=== PATIENT | male | born 1945 | race Caucasian/White ===

== ENCOUNTER 2018-07-07 16:44 | Outpatient (REF) | payer MEDICARE, MEDICAID, SELFPAY ==
[2018-07-07 18:50] LABS: HCT 43.3 % (40.0-50.0); HGB 13.7 g/dL (13.5-17.5); Mean Corp. HGB Concentration 31.6 g/dL (32.0-36.0); Mean Corpuscular Hemoglobin 26.1 pg (27.0-33.0); Mean Corpuscular Volume 82.6 fL (80-95); Mean Platelet Volume 10.1 fL (8.0-11.0); Platelet Count 262 x1000/uL (130-400); RBC 5.24 m/cumm (4.50-6.00); RBC Distribution Width 15.3 % (11.8-14.1); White Blood Cell Count 5.75 k/cumm (4.4-10.8)
[2018-07-07 19:09] LABS: TSH 2.77 uIU/mL (0.358-3.74)
[2018-07-11 11:10] LABS: PSA, Diagnostic 8.1 ng/ml (0-6.5)
== END 2018-07-07 16:45 ==
LOC: NCHCN 16:44
PROVIDERS: PCP Internal Medicine; Visit Provider Internal Medicine
DX: D64.9 Anemia, unspecified (principal); C61 Malignant neoplasm of prostate
CPT/HCPCS: 85027; 84153; 84443

== ENCOUNTER 2018-09-01 13:51 | Outpatient (REF) | payer MEDICARE, MEDICAID, SELFPAY ==
[2018-09-08 12:56] LABS: 6-monoacetylmorphine Not Detected ng/mL (Cutoff: 25); Amphetamines Negative ng/mL (Cutoff: 500); Barbiturates Negative ng/mL (Cutoff: 200); Benzodiazepines Negative ng/mL (Cutoff: 100); Buprenorphine Not Detected ng/mL (Cutoff: 5); Cocaine Negative ng/mL (Cutoff: 150); Codeine Not Detected ng/mL (Cutoff: 25); Comment Normal; Creatinine, U 65.8 mg/dL; Dihydrocodeine Not Detected ng/mL (Cutoff: 25); EDDP Not Detected ng/mL (Cutoff: 25); Fentanyl Not Detected ng/mL (Cutoff: 2); Hydrocodone Not Detected ng/mL (Cutoff: 25); Hydromorphone Not Detected ng/mL (Cutoff: 25); Hydromorphone-3-beta-glucuroni Not Detected ng/mL (Cutoff: 100); Meperidine Not Detected ng/mL (Cutoff: 25); Methadone Not Detected ng/mL (Cutoff: 25); Morphine Not Detected ng/mL (Cutoff: 25); N-desmethyltapentadol Not Detected ng/mL (Cutoff: 50); Naloxone Not Detected ng/mL (Cutoff: 25); Norfentanyl Not Detected ng/mL (Cutoff: 2); Norhydrocodone Not Detected ng/mL (Cutoff: 25); Normeperidine Not Detected ng/mL (Cutoff: 25); Noroxycodone Not Detected ng/mL (Cutoff: 25); Noroxymorphone Not Detected ng/mL (Cutoff: 25); O-desmethyltramadol Not Detected ng/mL (Cutoff: 25); Phencyclidine Negative ng/mL (Cutoff: 25); Propoxyphene Not Detected ng/mL (Cutoff: 25); Specific Gravity 1.008; Tapentadol Not Detected ng/mL (Cutoff: 25); Tetrahydrocannabinol Negative ng/mL (Cutoff: 50); Tramadol Not Detected ng/mL (Cutoff: 25); pH 7.6
== END 2018-09-01 14:11 ==
LOC: LBN 13:51
PROVIDERS: PCP Internal Medicine; Visit Provider Nurse Practitioner Family
DX: Z79.891 Long term (current) use of opiate analgesic (principal)
CPT/HCPCS: 80307; 80364

== ENCOUNTER 2018-09-15 13:55 | Outpatient (REF) | payer MEDICARE, MEDICAID, SELFPAY ==
[2018-09-15 20:38] LABS: TSH 3.13 uIU/mL (0.358-3.74); Vitamin B12 563 pg/mL (193-986)
[2018-09-16 16:21] LABS: CRP, High Sensitivity 1.58 mg/L
== END 2018-09-15 14:15 ==
LOC: NCHCN 13:55
PROVIDERS: PCP Internal Medicine; Visit Provider Internal Medicine
DX: R53.83 Other fatigue (principal); C61 Malignant neoplasm of prostate
CPT/HCPCS: 85652; 86141; 82607; 84443

== ENCOUNTER 2018-09-20 09:55 | Outpatient (REF) | payer MEDICARE, MEDICAID, SELFPAY ==
[2018-09-20 21:05] LABS: ESR 26 MM/HR (1-20)
== END 2018-09-20 10:15 ==
LOC: NCHCN 09:55
PROVIDERS: PCP Internal Medicine; Visit Provider Internal Medicine
DX: C61 Malignant neoplasm of prostate (principal)
CPT/HCPCS: 85652

== ENCOUNTER 2018-11-17 14:05 | Outpatient (CLI) | payer MEDICARE, MEDICAID, SELFPAY ==
[2018-11-17 14:34] LABS: Abs Immature Grans 0.01 k/cumm (0.0-0.09); Absolute Basophil Count 0.01 k/cumm (0.0-0.2); Absolute Eosinophil Count 0.11 k/cumm (0.0-0.7); Absolute Lymphocyte Count 0.99 k/cumm (1.2-3.4); Absolute Monocyte Count 0.33 k/cumm (0.11-0.7); Absolute Neutrophil Count 2.64 k/cumm (1.2-6.7); Basophils % 0.2; Eosinophils % 2.7; HCT 41.1 % (40.0-50.0); HGB 13.4 g/dL (13.5-17.5); Immature Grans % 0.2; Lymphocytes % 24.2; Mean Corp. HGB Concentration 32.6 g/dL (32.0-36.0); Mean Corpuscular Hemoglobin 28.9 pg (27.0-33.0); Mean Corpuscular Volume 88.8 fL (80-95); Mean Platelet Volume 9.1 fL (8.0-11.0); Monocytes % 8.1; Neutrophils % 64.6; Platelet Count 190 x1000/uL (130-400); RBC 4.63 m/cumm (4.50-6.00); RBC Distribution Width 13.4 % (11.8-14.1); White Blood Cell Count 4.09 k/cumm (4.4-10.8)
[2018-11-17 14:41] LABS: ALT 45 U/L (12-78); AST 37 U/L (15-37); Albumin 3.4 g/dL (3.4-5.0); Alkaline Phosphatase 121 U/L (46-116); Anion Gap 9.7 mmol/L (3-11); BUN 12 mg/dL (7-18); Bilirubin, Total 0.4 mg/dL (0.2-1.0); CO2 28.3 mmol/L (21.0-32.0); CREATININE 0.93 mg/dL (0.70-1.30); Calcium 8.6 mg/dL (8.5-10.1); Chloride 104 mmol/L (98-107); Glucose 94 mg/dL (70-100); Potassium 3.8 mmol/L (3.5-5.1); Sodium 142 mmol/L (136-145); Total Protein 6.9 g/dL (6.4-8.2)
[2018-11-21 09:03] LABS: PSA, Diagnostic 0.6 ng/ml (0-6.5)
== END 2018-11-17 14:25 ==
PROVIDERS: PCP Internal Medicine; Visit Provider Internal Medicine Hematology & Oncology
DX: C61 Malignant neoplasm of prostate (principal)
CPT/HCPCS: 36415; 80053; 84153; 85025

== ENCOUNTER 2018-12-12 18:40 | Outpatient (REF) | payer MEDICARE, MEDICAID, SELFPAY | END 2018-12-12 19:00 | LOC: NCHCN 18:40 | PROVIDERS: PCP Internal Medicine; Visit Provider Internal Medicine | DX: N39.0 Urinary tract infection, site not specified (principal) | CPT/HCPCS: 87086 ==

== ENCOUNTER 2019-01-11 09:37 | Outpatient (CLI) | payer MEDICARE, MEDICAID, SELFPAY ==
[2019-01-11 10:13] VITALS: BP 131/81; PULSE 68; RESP 18; TEMP 36.2; O2SAT 100
--- NOTE | 2019-01-11 10:58 | PDOC.PAIN ---
Pain Clinic Procedure Note Current Active Problems Problem Status Onset Lumbar radiculitis Acute LUMBAR / SACRAL TRANSFORAMINAL INJECTION TIMOTHY CERVANTES has been [facility] for a transforaminal nerve root block and steroid injection. COMMENTS: He was seen in our office on 12/13/18. He has signs and symptoms consistent with a left S1 radiculopathy. Patient was interviewed and the medical record reviewed. There were no medical, pharmacologic, radiographic or other structural contraindications to attempting fluoroscopically guided transforaminal nerve root block and epidural steroid injection. Risks and expected side effects as well as potential benefit of the procedure were reviewed and voiced concerns addressed. The printed consent form was signed and witnessed. Standard time-out procedure was performed. Patient was placed in the prone position on the fluoroscopy table and automated blood pressure cuff and pulse oximeter applied. Fluoroscopy was utilized to identify the left S1 neural foramen. A skin misty was made for the needle insertion site. A Chlorhexadine prep was carried out, and sterile drapes were applied. Local anesthesia was achieved in the skin and subcutaneous tissues. A 22 gauge 5 inch curved tip spinal needle was then inserted, advanced with fluoroscopic guidance into the neural foramen, confirmed on the lateral view. After negative aspiration, 2 ml of Omnipaque 240 was injected confirming position in A/P and lateral views. This showed a good spread of dye transforaminally into the epidural space. There was no vascular update with contrast injection under continuous fluoroscopy and digital substraction. 10 mg of Dexamethasone was injected, followed by 0.5 ml of 1% Xylocaine flush for the nerve root block, as well. There was no unusual discomfort expressed.The needle was withdrawn. The patient tolerated the procedure well. A Band-Aid was applied. Vital signs were stable throughout the procedure and were as recorded in nursing records. If given, dosages of intravenous drugs for anxiolysis and analgesia were documented in nursing records. Follow up plans and appointments were discussed. Post procedure instruction was given as documented in nursing records and patient was discharged in the care of an identified utility worker driver. COMMENTS: This procedure can be completed up to 3 times per 12 months if it is found to be effective. CC: Turner Isaacs
--- NOTE | 2019-01-11 11:02 | DI.RAD_ITS ---
SYMPTOMS/DIAGNOSIS: LUMBAR RADICULOPATHY, TRANSFORAMINAL EPIDURAL STEROID INJECTION PAIN CLINIC: Fluoroscopy Time: 35.6 sec 15.70 mGy Fluoroscopy was utilized by Dr. Borges during the performance of a transforaminal epidural steroid injection. Please refer to the procedure report for complete details.
[2019-01-11 11:03] VITALS: BP 154/91; PULSE 78; RESP 20; O2SAT 100
[2019-01-11] MEDS: Dexamethasone Sod. Phos./Pres-Free 10 MG/ML VIAL IJ (11:04)
[2019-01-11] MEDS: Omnipaque 240 MG/ML 50 ML BTL IJ (11:04)
== END 2019-01-11 09:57 ==
PROVIDERS: PCP Internal Medicine; Visit Provider Preventive Medicine Occupational Medicine
DX: M54.16 Radiculopathy, lumbar region (principal)
CPT/HCPCS: 64483; 72100; Q9967

== ENCOUNTER 2019-02-16 08:01 | Outpatient (CLI) | payer MEDICARE, MEDICAID, SELFPAY ==
[2019-02-16 08:37] LABS: Abs Immature Grans 0.02 k/cumm (0.0-0.09); Absolute Basophil Count 0.04 k/cumm (0.0-0.2); Absolute Eosinophil Count 0.11 k/cumm (0.0-0.7); Absolute Lymphocyte Count 0.74 k/cumm (1.2-3.4); Absolute Monocyte Count 0.45 k/cumm (0.11-0.7); Eosinophils % 2.8; HCT 39.1 % (40.0-50.0); HGB 13.1 g/dL (13.5-17.5); Immature Grans % 0.5; Lymphocytes % 19.1; Mean Corp. HGB Concentration 33.5 g/dL (32.0-36.0); Mean Corpuscular Hemoglobin 28.9 pg (27.0-33.0); Mean Corpuscular Volume 86.1 fL (80-95); Mean Platelet Volume 8.7 fL (8.0-11.0); Monocytes % 11.6; Platelet Count 209 x1000/uL (130-400); RBC 4.54 m/cumm (4.50-6.00); RBC Distribution Width 12.9 % (11.8-14.1); White Blood Cell Count 3.87 k/cumm (4.4-10.8)
[2019-02-16 08:39] LABS: Absolute Neutrophil Count 2.52 k/cumm (1.2-6.7)
[2019-02-16 08:49] LABS: ALT 38 U/L (12-78); AST 35 U/L (15-37); Albumin 3.3 g/dL (3.4-5.0); Alkaline Phosphatase 109 U/L (46-116); Anion Gap 6.7 mmol/L (3-11); BUN 13 mg/dL (7-18); Bilirubin, Total 0.2 mg/dL (0.2-1.0); CO2 30.3 mmol/L (21.0-32.0); Calcium 8.4 mg/dL (8.5-10.1); Chloride 102 mmol/L (98-107); Glucose 93 mg/dL (70-100); Potassium 4.2 mmol/L (3.5-5.1); Sodium 139 mmol/L (136-145); Total Protein 6.9 g/dL (6.4-8.2)
[2019-02-17 11:38] LABS: PSA, Diagnostic 0.4 ng/ml (0-6.5)
== END 2019-02-16 08:21 ==
PROVIDERS: PCP Internal Medicine; Visit Provider Internal Medicine Hematology & Oncology
DX: C61 Malignant neoplasm of prostate (principal)
CPT/HCPCS: 36415; 80053; 84153; 85025

== ENCOUNTER 2019-03-07 13:16 | Outpatient (CLI) | payer MEDICARE, MEDICAID, SELFPAY ==
--- NOTE | 2019-03-07 06:00 | DI.RAD_ITS ---
SYMPTOMS/DIAGNOSIS: LUMBAR RADICULOPATHY PAIN CLINIC LUMBAR SPINE: Fluoroscopy Time: 42 sec Fluoroscopy was utilized by Dr. Borges during the performance of a lumbar epidural steroid injection. Please refer to the procedure report for complete details.
[2019-03-07 13:27] VITALS: BP 127/77; PULSE 71; RESP 17; TEMP 36; O2SAT 97
[2019-03-07] MEDS: Omnipaque 240 MG/ML 50 ML BTL IJ (14:01)
--- NOTE | 2019-03-07 14:01 | PDOC.PAIN ---
Pain Clinic Procedure Note Current Active Problems Problem Status Onset Lumbar radiculitis Acute LUMBAR / SACRAL TRANSFORAMINAL INJECTION TIMOTHY CERVANTES has been referred to the [facility] for a transforaminal nerve root block and steroid injection. COMMENTS: He did fairly well with his last left S1 transforaminal LILIANE Patient was interviewed and the medical record reviewed. There were no medical, pharmacologic, radiographic or other structural contraindications to attempting fluoroscopically guided transforaminal nerve root block and epidural steroid injection. Risks and expected side effects as well as potential benefit of the procedure were reviewed and voiced concerns addressed. The printed consent form was signed and witnessed. Standard time-out procedure was performed. Patient was placed in the prone position on the fluoroscopy table and automated blood pressure cuff and pulse oximeter applied. Fluoroscopy was utilized to identify the left F1uwaerz foramen. A skin misty was made for the needle insertion site. A Chlorhexadine prep was carried out, and sterile drapes were applied. Local anesthesia was achieved in the skin and subcutaneous tissues. A 22 gauge curved tip 3.5 spinal needle was then inserted, advanced with fluoroscopic guidance into the neural foramen, confirmed on the lateral view. After negative aspiration, 2 ml of Omnipaque 240 was injected confirming position in A/P and lateral views. This showed a good spread of dye transforaminally into the epidural space. There was no vascular update with contrast injection under continuous fluoroscopy and digital substraction. 15 mg of Dexamethasone was injected, followed by 0.5 ml of 1% Xylocaine flush for the nerve root block, as well. There was no unusual discomfort expressed.The needle was withdrawn. The patient tolerated the procedure well. A Band-Aid was applied. Vital signs were stable throughout the procedure and were as recorded in nursing records. If given, dosages of intravenous drugs for anxiolysis and analgesia were documented in nursing records. Follow up plans and appointments were discussed. Post procedure instruction was given as documented in nursing records and patient was discharged in the care of an identified starting gate driver. COMMENTS: If this procedure is found to be effective, it can be completed up to 3 times per 12 months. CC: Turner Isaacs
[2019-03-07] MEDS: Dexamethasone Sod. Phos./Pres-Free 10 MG/ML VIAL IJ (14:02)
[2019-03-07 14:07] VITALS: BP 160/76; PULSE 83; RESP 16; O2SAT 100
== END 2019-03-07 13:36 ==
PROVIDERS: PCP Internal Medicine; Visit Provider Preventive Medicine Occupational Medicine
DX: M54.16 Radiculopathy, lumbar region (principal)
CPT/HCPCS: 64483; 72100; Q9967

== ENCOUNTER 2019-05-25 15:39 | Outpatient (CLI) | payer MEDICARE, MEDICAID, SELFPAY ==
[2019-05-25 15:59] LABS: Absolute Basophil Count 0.01 k/cumm (0.0-0.2); Absolute Eosinophil Count 0.09 k/cumm (0.0-0.7); Absolute Lymphocyte Count 0.81 k/cumm (1.2-3.4); Absolute Monocyte Count 0.26 k/cumm (0.11-0.7); Absolute Neutrophil Count 1.82 k/cumm (1.2-6.7); Basophils % 0.3; HCT 40.2 % (40.0-50.0); HGB 13.2 g/dL (13.5-17.5); Lymphocytes % 27.1; Mean Corp. HGB Concentration 32.8 g/dL (32.0-36.0); Mean Corpuscular Volume 85.2 fL (80-95); Mean Platelet Volume 8.4 fL (8.0-11.0); Monocytes % 8.7; Neutrophils % 60.9; Platelet Count 217 x1000/uL (130-400); RBC 4.72 m/cumm (4.50-6.00); RBC Distribution Width 12.9 % (11.8-14.1); White Blood Cell Count 2.99 k/cumm (4.4-10.8)
[2019-05-25 16:17] LABS: ALT 36 U/L (12-78); AST 27 U/L (15-37); Albumin 3.4 g/dL (3.4-5.0); Alkaline Phosphatase 98 U/L (46-116); Anion Gap 9.4 mmol/L (3-11); BUN 11 mg/dL (7-18); Bilirubin, Total 0.3 mg/dL (0.2-1.0); CO2 26.6 mmol/L (21.0-32.0); CREATININE 0.86 mg/dL (0.70-1.30); Calcium 8.8 mg/dL (8.5-10.1); Chloride 105 mmol/L (98-107); Glucose 95 mg/dL (70-100); Potassium 3.7 mmol/L (3.5-5.1); Sodium 141 mmol/L (136-145); Total Protein 6.9 g/dL (6.4-8.2)
[2019-05-26 09:30] LABS: PSA, Diagnostic 0.2 ng/ml (0-6.5)
== END 2019-05-25 15:59 ==
PROVIDERS: PCP Internal Medicine; Visit Provider Internal Medicine Hematology & Oncology
DX: C61 Malignant neoplasm of prostate (principal)
CPT/HCPCS: 36415; 80053; 84153; 85025

== ENCOUNTER 2019-11-20 16:16 | Outpatient (CLI) | payer MEDICARE, MEDICAID, SELFPAY ==
[2019-11-22 15:03] LABS: PSA, Ultrasensitive 9.1 ng/mL (<= 6.5)
== END 2019-11-20 16:36 ==
PROVIDERS: PCP Internal Medicine; Visit Provider Radiology Radiation Oncology
DX: C61 Malignant neoplasm of prostate (principal)
CPT/HCPCS: 36415; 84153

== ENCOUNTER 2020-01-10 19:15 | Outpatient (REF) | payer MEDICARE, MEDICAID, SELFPAY ==
[2020-01-10 21:39] LABS: FREE T4 1.05 ng/dL (0.76-1.46); TSH 5.33 uIU/mL (0.36-3.74)
== END 2020-01-10 19:35 ==
LOC: NCHCN 19:15
PROVIDERS: PCP Internal Medicine; Visit Provider Internal Medicine
DX: R53.83 Other fatigue (principal); C61 Malignant neoplasm of prostate
CPT/HCPCS: 84439; 84443

== ENCOUNTER 2020-02-12 02:09 | Outpatient (CLI) | payer MEDICARE, MEDICAID, SELFPAY ==
[2020-02-12 11:10] LABS: Abs Immature Grans 0.01 k/cumm (0.0-0.09); Absolute Basophil Count 0.02 k/cumm (0.0-0.2); Absolute Eosinophil Count 0.14 k/cumm (0.0-0.7); Absolute Lymphocyte Count 1.29 k/cumm (1.2-3.4); Absolute Neutrophil Count 2.39 k/cumm (1.2-6.7); Basophils % 0.5; Eosinophils % 3.4; HCT 40.9 % (40.0-50.0); HGB 13.5 g/dL (13.5-17.5); Immature Grans % 0.2 %; Lymphocytes % 31.1; Mean Corpuscular Hemoglobin 28.7 pg (27.0-33.0); Monocytes % 7.2; Neutrophils % 57.6; Platelet Count 215 x1000/uL (130-400); RBC Distribution Width 13.2 % (11.8-14.1); White Blood Cell Count 4.15 k/cumm (4.4-10.8)
[2020-02-12 11:27] LABS: ALT 46 U/L (16-63); AST 37 U/L (15-37); Albumin 3.3 g/dL (3.4-5.0); Alkaline Phosphatase 121 U/L (46-116); Anion Gap 6.1 mmol/L (3-11); BUN 13 mg/dL (7-18); Bilirubin, Total 0.4 mg/dL (0.2-1.0); CO2 29.9 mmol/L (21.0-32.0); CREATININE 0.99 mg/dL (0.70-1.30); Calcium 8.9 mg/dL (8.5-10.1); Chloride 104 mmol/L (98-107); Glucose 116 mg/dL (74-106); Potassium 4.1 mmol/L (3.5-5.1); Sodium 140 mmol/L (136-145)
[2020-02-13 14:41] LABS: PSA, Ultrasensitive 5.6 ng/mL (<= 6.5)
[2020-02-14 21:57] LABS: Testosterone, Total 14 ng/dL (240-950)
== END 2020-02-12 02:29 ==
PROVIDERS: PCP Internal Medicine; Visit Provider Internal Medicine Hematology & Oncology
DX: C61 Malignant neoplasm of prostate (principal)
CPT/HCPCS: 36415; 80053; 84153; 84403; 85025

== ENCOUNTER 2020-11-19 02:36 | Outpatient (CLI) | payer MEDICARE, MEDICAID, SELFPAY ==
[2020-11-19 12:16] LABS: Abs Immature Grans 0.02 10^3/uL (0.0-0.06); Absolute Basophil Count 0.05 10^3/uL (0.0-0.2); Absolute Eosinophil Count 0.16 10^3/uL (0.0-0.7); Absolute Lymphocyte Count 1.41 10^3/uL (1.2-3.4); Absolute Monocyte Count 0.45 10^3/uL (0.1-0.8); Absolute Neutrophil Count 4.51 10^3/uL (1.2-6.7); Basophils % 0.8; Eosinophils % 2.4; HCT 38.2 % (40.0-50.0); HGB 12.1 g/dL (13.5-17.5); Immature Grans % 0.3; Lymphocytes % 21.4; MCH 26.8 pg (27.0-33.0); MCHC 31.7 % (32.0-36.0); MCV 84.7 fL (80-95); MPV 8.9 fL (8.0-11.0); Monocytes % 6.8; Neutrophils % 68.3; Nucleated RBC 0 %; Platelet Count 250 10^3/uL (130-400); RBC 4.51 10^6/uL (4.36-5.78); RDW 13.7 % (11.8-14.1); RDW-SD 42.3 fL
[2020-11-19 12:33] LABS: ALT 30 U/L (16-63); AST 27 U/L (15-37); Albumin 3.1 g/dL (3.4-5.0); Alkaline Phosphatase 140 U/L (46-116); Anion Gap 8.6 mmol/L (3-11); BUN 15 mg/dL (7-18); Bilirubin, Total 0.3 mg/dL (0.2-1.0); CO2 27.4 mmol/L (21.0-32.0); CREATININE 1.05 mg/dL (0.70-1.30); Calcium 8.7 mg/dL (8.5-10.1); Chloride 104 mmol/L (98-107); Glucose 89 mg/dL (74-106); Potassium 4.1 mmol/L (3.5-5.1); Sodium 140 mmol/L (136-145); Total Protein 7.2 g/dL (6.4-8.2)
[2020-11-22 08:18] LABS: Testosterone, Total 674 ng/dL (240-950)
== END 2020-11-19 02:56 ==
PROVIDERS: PCP Internal Medicine; Visit Provider Internal Medicine Hematology & Oncology
DX: C61 Malignant neoplasm of prostate (principal)
CPT/HCPCS: 36415; 80053; 84403; 84154; 85025

== ENCOUNTER 2021-01-02 03:11 | Outpatient (CLI) | payer MEDICARE, MEDICAID, SELFPAY ==
[2021-01-02 12:13] LABS: Abs Immature Grans 0.01 10^3/uL (0.0-0.06); Absolute Basophil Count 0.04 10^3/uL (0.0-0.2); Absolute Lymphocyte Count 1.25 10^3/uL (1.2-3.4); Absolute Monocyte Count 0.39 10^3/uL (0.1-0.8); Absolute Neutrophil Count 2.55 10^3/uL (1.2-6.7); Basophils % 0.9; Eosinophils % 2.3; HCT 40.9 % (40.0-50.0); HGB 12.8 g/dL (13.5-17.5); Immature Grans % 0.2; Lymphocytes % 28.8; MCH 26.8 pg (27.0-33.0); MCHC 31.3 % (32.0-36.0); MCV 85.7 fL (80-95); Neutrophils % 58.8; Nucleated RBC 0 %; Platelet Count 235 10^3/uL (130-400); RBC 4.77 10^6/uL (4.36-5.78); RDW 14.6 % (11.8-14.1); RDW-SD 46.5 fL; WBC 4.34 10^3/uL (4.4-10.8)
[2021-01-02 13:02] LABS: ALT 31 U/L (16-63); AST 28 U/L (15-37); Albumin 3.4 g/dL (3.4-5.0); Alkaline Phosphatase 137 U/L (46-116); Anion Gap 7.6 mmol/L (3-11); BUN 14 mg/dL (7-18); Bilirubin, Total 0.3 mg/dL (0.2-1.0); CO2 27.4 mmol/L (21.0-32.0); CREATININE 0.9 mg/dL (0.70-1.30); Calcium 8.7 mg/dL (8.5-10.1); Chloride 105 mmol/L (98-107); Glucose 96 mg/dL (74-106); Potassium 4.3 mmol/L (3.5-5.1); Sodium 140 mmol/L (136-145); Total Protein 6.9 g/dL (6.4-8.2)
[2021-01-08 07:28] LABS: Testosterone, Total 660 ng/dL (240-950)
== END 2021-01-02 03:12 | disposition home or self-care (01) ==
LOC: LBO 03:12
PROVIDERS: PCP Internal Medicine; Visit Provider Internal Medicine Hematology & Oncology
DX: C61 Malignant neoplasm of prostate (principal)
CPT/HCPCS: 36415; 80053; 84403; 84154; 85025

== ENCOUNTER 2021-02-20 03:08 | Outpatient (CLI) | payer MEDICARE, MEDICAID, SELFPAY ==
[2021-02-20 10:14] LABS: Abs Immature Grans 0.01 10^3/uL (0.0-0.06); Absolute Basophil Count 0.05 10^3/uL (0.0-0.2); Absolute Eosinophil Count 0.08 10^3/uL (0.0-0.7); Absolute Lymphocyte Count 1.24 10^3/uL (1.2-3.4); Absolute Monocyte Count 0.39 10^3/uL (0.1-0.8); Absolute Neutrophil Count 2.27 10^3/uL (1.2-6.7); Basophils % 1.2; HCT 42.1 % (40.0-50.0); HGB 13.3 g/dL (13.5-17.5); Immature Grans % 0.2; Lymphocytes % 30.7; MCH 26.9 pg (27.0-33.0); MCHC 31.6 % (32.0-36.0); MCV 85.2 fL (80-95); MPV 8.6 fL (8.0-11.0); Monocytes % 9.7; Neutrophils % 56.2; Nucleated RBC 0 %; Platelet Count 215 10^3/uL (130-400); RBC 4.94 10^6/uL (4.36-5.78); RDW 14.4 % (11.8-14.1); RDW-SD 44.7 fL; WBC 4.04 10^3/uL (4.4-10.8)
[2021-02-20 10:26] LABS: ALT 34 U/L (16-63); AST 33 U/L (15-37); Albumin 3.4 g/dL (3.4-5.0); Alkaline Phosphatase 159 U/L (46-116); Anion Gap 7.9 mmol/L (3-11); BUN 17 mg/dL (7-18); Bilirubin, Total 0.3 mg/dL (0.2-1.0); CO2 28.1 mmol/L (21.0-32.0); Calcium 8.7 mg/dL (8.5-10.1); Chloride 105 mmol/L (98-107); Glucose 111 mg/dL (74-106); Potassium 4.4 mmol/L (3.5-5.1); Sodium 141 mmol/L (136-145); Total Protein 7.1 g/dL (6.4-8.2)
[2021-02-24 10:26] LABS: Testosterone, Total 721 ng/dL (240-950)
== END 2021-02-20 03:09 | disposition home or self-care (01) ==
LOC: LBO 03:08
PROVIDERS: PCP Internal Medicine; Visit Provider Internal Medicine Hematology & Oncology
DX: C61 Malignant neoplasm of prostate (principal)
CPT/HCPCS: 36415; 80053; 84403; 84154; 85025

== ENCOUNTER 2021-09-04 02:11 | Outpatient (CLI) | payer MEDICARE, MEDICAID, SELFPAY ==
[2021-09-04 14:04] LABS: ALT 44 U/L (16-63); AST 32 U/L (15-37); Albumin 3.4 g/dL (3.4-5.0); Alkaline Phosphatase 121 U/L (46-116); Anion Gap 5.2 mmol/L (3-11); BUN 13 mg/dL (7-18); Bilirubin, Total 0.3 mg/dL (0.2-1.0); CO2 29.8 mmol/L (21.0-32.0); CREATININE 0.9 mg/dL (0.70-1.30); Calcium 8.4 mg/dL (8.5-10.1); Chloride 107 mmol/L (98-107); Glucose 116 mg/dL (74-106); Potassium 4.4 mmol/L (3.5-5.1); Sodium 142 mmol/L (136-145); Total Protein 6.5 g/dL (6.4-8.2)
== END 2021-09-04 02:12 | disposition home or self-care (01) ==
PROVIDERS: PCP Internal Medicine; Visit Provider Nurse Practitioner Family
DX: C61 Malignant neoplasm of prostate (principal); C79.51 Secondary malignant neoplasm of bone
CPT/HCPCS: 36415; 80053

== ENCOUNTER 2021-09-18 09:57 | Outpatient (RCR) | payer MEDICARE, MEDICAID, SELFPAY ==
[2021-09-18 10:44] LABS: Abs Immature Grans 0.01 10^3/uL (0.0-0.06); Absolute Basophil Count 0.03 10^3/uL (0.0-0.2); Absolute Eosinophil Count 0.14 10^3/uL (0.0-0.7); Absolute Lymphocyte Count 1.34 10^3/uL (1.2-3.4); Absolute Monocyte Count 0.34 10^3/uL (0.1-0.8); Absolute Neutrophil Count 2.42 10^3/uL (1.2-6.7); Basophils % 0.7; Eosinophils % 3.3; HCT 39.6 % (40.0-50.0); HGB 12.9 g/dL (13.5-17.5); Immature Grans % 0.2; Lymphocytes % 31.3; MCH 28.2 pg (27.0-33.0); MCHC 32.6 % (32.0-36.0); MCV 86.5 fL (80-95); MPV 9.1 fL (8.0-11.0); Monocytes % 7.9; Neutrophils % 56.6; Nucleated RBC 0 %; Platelet Count 210 10^3/uL (130-400); RBC 4.58 10^6/uL (4.36-5.78); RDW 12.7 % (11.8-14.1); WBC 4.28 10^3/uL (4.4-10.8)
[2021-09-19 16:38] LABS: PSA, Ultrasensitive 3.1 ng/mL (<= 6.5)
== END 2021-10-07 23:59 | disposition home or self-care (01) ==
LOC: INF 09:57
PROVIDERS: PCP Internal Medicine; Visit Provider Internal Medicine Hematology & Oncology
DX: C61 Malignant neoplasm of prostate (principal)
CPT/HCPCS: 36415; 84153; 85025

== ENCOUNTER 2021-10-20 03:57 | Outpatient (CLI) | payer MEDICARE, MEDICAID, SELFPAY ==
[2021-10-20 11:03] LABS: Abs Immature Grans 0.01 10^3/uL (0.0-0.06); Absolute Basophil Count 0.04 10^3/uL (0.0-0.2); Absolute Eosinophil Count 0.15 10^3/uL (0.0-0.7); Absolute Lymphocyte Count 1.27 10^3/uL (1.2-3.4); Absolute Monocyte Count 0.29 10^3/uL (0.1-0.8); Absolute Neutrophil Count 1.64 10^3/uL (1.2-6.7); Basophils % 1.2; Eosinophils % 4.4; HCT 42.1 % (40.0-50.0); HGB 13.5 g/dL (13.5-17.5); Immature Grans % 0.3; Lymphocytes % 37.4; MCH 28.2 pg (27.0-33.0); MCHC 32.1 % (32.0-36.0); MCV 87.9 fL (80-95); MPV 9.8 fL (8.0-11.0); Monocytes % 8.5; Neutrophils % 48.2; Nucleated RBC 0 %; Platelet Count 205 10^3/uL (130-400); RBC 4.79 10^6/uL (4.36-5.78); RDW 12.4 % (11.8-14.1); RDW-SD 39.9 fL
== END 2021-10-20 03:58 | disposition home or self-care (01) ==
LOC: LBO 03:57
PROVIDERS: PCP Internal Medicine; Visit Provider Internal Medicine Hematology & Oncology
DX: C61 Malignant neoplasm of prostate (principal)
CPT/HCPCS: 36415; 84154; 85025

== ENCOUNTER 2021-12-04 03:34 | Outpatient (CLI) | payer MEDICARE, MEDICAID, SELFPAY ==
[2021-12-05 12:12] LABS: PSA, Ultrasensitive 2.8 ng/mL (<= 6.5)
== END 2021-12-04 03:35 | disposition home or self-care (01) ==
PROVIDERS: PCP Internal Medicine; Visit Provider Internal Medicine Hematology & Oncology
DX: C61 Malignant neoplasm of prostate (principal)
CPT/HCPCS: 36415; 84153; 85025

== ENCOUNTER 2021-12-18 12:42 | Outpatient (CLI) | payer MEDICARE, MEDICAID, SELFPAY ==
[2021-12-18 09:08] LABS: ALT 44 U/L (16-63); AST 31 U/L (15-37); Albumin 3.4 g/dL (3.4-5.0); Alkaline Phosphatase 116 U/L (46-116); Anion Gap 5.1 mmol/L (3-11); BUN 20 mg/dL (7-18); Bilirubin, Total 0.2 mg/dL (0.2-1.0); CO2 25.9 mmol/L (21.0-32.0); Calcium 8.9 mg/dL (8.5-10.1); Chloride 107 mmol/L (98-107); Glucose 104 mg/dL (74-106); Potassium 4.1 mmol/L (3.5-5.1); Sodium 138 mmol/L (136-145)
== END 2021-12-18 12:43 | disposition home or self-care (01) ==
LOC: LBO 12:46
PROVIDERS: PCP Internal Medicine; Visit Provider Nurse Practitioner Family
DX: C61 Malignant neoplasm of prostate (principal); C79.51 Secondary malignant neoplasm of bone
CPT/HCPCS: 36415; 80053

== ENCOUNTER 2022-01-16 04:09 | Outpatient (CLI) | payer MEDICARE, MEDICAID, SELFPAY ==
[2022-01-16 12:07] LABS: Abs Immature Grans 0.02 10^3/uL (0.0-0.06); Absolute Basophil Count 0.05 10^3/uL (0.0-0.2); Absolute Eosinophil Count 0.09 10^3/uL (0.0-0.7); Absolute Monocyte Count 0.33 10^3/uL (0.1-0.8); Basophils % 1.2; Eosinophils % 2.1; HGB 13.4 g/dL (13.5-17.5); Immature Grans % 0.5; Lymphocytes % 30.3; MCH 28.3 pg (27.0-33.0); MCHC 31.9 % (32.0-36.0); MCV 88.6 fL (80-95); Monocytes % 7.7; Neutrophils % 58.2; Nucleated RBC 0 %; Platelet Count 221 10^3/uL (130-400); RBC 4.74 10^6/uL (4.36-5.78); RDW 12.6 % (11.8-14.1); RDW-SD 41.6 fL; WBC 4.29 10^3/uL (4.4-10.8)
[2022-01-16 12:45] LABS: ALT 34 U/L (16-63); AST 26 U/L (15-37); Albumin 3.8 g/dL (3.4-5.0); Alkaline Phosphatase 99 U/L (46-116); Anion Gap 6.9 mmol/L (3-11); BUN 11 mg/dL (7-18); Bilirubin, Total 0.4 mg/dL (0.2-1.0); CO2 28.1 mmol/L (21.0-32.0); CREATININE 0.9 mg/dL (0.70-1.30); Calcium 8.6 mg/dL (8.5-10.1); Chloride 107 mmol/L (98-107); Glucose 90 mg/dL (74-106); Potassium 4.4 mmol/L (3.5-5.1); Sodium 142 mmol/L (136-145); Total Protein 6.9 g/dL (6.4-8.2)
[2022-01-19 12:21] LABS: PSA, Ultrasensitive 2.3 ng/mL (<= 6.5)
== END 2022-01-16 04:10 | disposition home or self-care (01) ==
LOC: LBO 04:09
PROVIDERS: PCP Internal Medicine; Visit Provider Internal Medicine Hematology & Oncology
DX: C79.51 Secondary malignant neoplasm of bone (principal); C61 Malignant neoplasm of prostate
CPT/HCPCS: 36415; 80053; 84153; 85025

== ENCOUNTER 2022-01-22 03:43 | Outpatient (CLI) | payer MEDICARE, MEDICAID, SELFPAY ==
[2022-01-22 09:52] LABS: Abs Immature Grans 0.02 10^3/uL (0.0-0.06); Absolute Basophil Count 0.04 10^3/uL (0.0-0.2); Absolute Eosinophil Count 0.08 10^3/uL (0.0-0.7); Absolute Lymphocyte Count 1.14 10^3/uL (1.2-3.4); Absolute Monocyte Count 0.45 10^3/uL (0.1-0.8); Absolute Neutrophil Count 3.32 10^3/uL (1.2-6.7); Basophils % 0.8; Eosinophils % 1.6; HGB 13.4 g/dL (13.5-17.5); Immature Grans % 0.4; Lymphocytes % 22.6; MCH 27.7 pg (27.0-33.0); MCHC 31.9 % (32.0-36.0); MCV 86.8 fL (80-95); MPV 9.3 fL (8.0-11.0); Monocytes % 8.9; Neutrophils % 65.7; Nucleated RBC 0 %; Platelet Count 210 10^3/uL (130-400); RBC 4.84 10^6/uL (4.36-5.78); RDW 12.7 % (11.8-14.1); RDW-SD 39.9 fL; WBC 5.05 10^3/uL (4.4-10.8)
[2022-01-22 10:07] LABS: ALT 37 U/L (16-63); AST 27 U/L (15-37); Albumin 3.6 g/dL (3.4-5.0); Alkaline Phosphatase 95 U/L (46-116); Anion Gap 7.2 mmol/L (3-11); BUN 15 mg/dL (7-18); Bilirubin, Total 0.3 mg/dL (0.2-1.0); CO2 26.8 mmol/L (21.0-32.0); CREATININE 0.9 mg/dL (0.70-1.30); Calcium 8.8 mg/dL (8.5-10.1); Chloride 107 mmol/L (98-107); Glucose 106 mg/dL (74-106); Potassium 4.4 mmol/L (3.5-5.1); Sodium 141 mmol/L (136-145); Total Protein 7.3 g/dL (6.4-8.2)
== END 2022-01-22 03:44 | disposition home or self-care (01) ==
LOC: LBO 03:43
PROVIDERS: PCP Internal Medicine; Visit Provider Internal Medicine Hematology & Oncology
DX: C61 Malignant neoplasm of prostate (principal); C79.51 Secondary malignant neoplasm of bone
CPT/HCPCS: 36415; 80053; 84153; 85025

== ENCOUNTER 2022-04-16 02:26 | Outpatient (CLI) | payer MEDICARE, MEDICAID, SELFPAY ==
[2022-04-16 11:40] LABS: Absolute Basophil Count 0.04 10^3/uL (0.0-0.2); Absolute Eosinophil Count 0.08 10^3/uL (0.0-0.7); Absolute Lymphocyte Count 1.25 10^3/uL (1.2-3.4); Absolute Monocyte Count 0.37 10^3/uL (0.1-0.8); Absolute Neutrophil Count 2.17 10^3/uL (1.2-6.7); HCT 38.1 % (40.0-50.0); HGB 12.3 g/dL (13.5-17.5); MCH 28.1 pg (27.0-33.0); MCHC 32.3 % (32.0-36.0); MCV 87 fL (80-95); MPV 8.8 fL (8.0-11.0); Monocytes % 9.5; Neutrophils % 55.5; Platelet Count 203 10^3/uL (130-400); RBC 4.37 10^6/uL (4.36-5.78); RDW 12.7 % (11.8-14.1); RDW-SD 40.6 fL; WBC 3.91 10^3/uL (4.4-10.8)
[2022-04-16 11:52] LABS: ALT 43 U/L (16-63); AST 36 U/L (15-37); Albumin 3.4 g/dL (3.4-5.0); Alkaline Phosphatase 113 U/L (46-116); Anion Gap 8.6 mmol/L (3-11); BUN 14 mg/dL (7-18); Bilirubin, Total 0.4 mg/dL (0.2-1.0); CO2 27.4 mmol/L (21.0-32.0); Calcium 8.2 mg/dL (8.5-10.1); Chloride 103 mmol/L (98-107); Glucose 104 mg/dL (74-106); Potassium 4.3 mmol/L (3.5-5.1); Sodium 139 mmol/L (136-145); Total Protein 6.9 g/dL (6.4-8.2)
== END 2022-04-16 02:27 | disposition home or self-care (01) ==
LOC: LBO 02:26
PROVIDERS: PCP Internal Medicine; Visit Provider Internal Medicine Hematology & Oncology
DX: C61 Malignant neoplasm of prostate (principal); C79.51 Secondary malignant neoplasm of bone
CPT/HCPCS: 36415; 80053; 84153; 85025

== ENCOUNTER → 2022-05-21 01:27 | Outpatient (CLI) | payer MEDICARE, MEDICAID, SELFPAY ==
--- NOTE | 2022-05-21 12:15 | DI.MRI_ITS ---
Exam(s) MR LUMBAR SPINE WO/W EXAM: MR LUMBAR SPINE WO/W CLINICAL HISTORY: LBP, CANCER SUSPECTED; PROSTATE CA, C61; OSSEOUS METS, C79.51. TECHNIQUE: Multiplanar multisequence MRI of the Lumbar Spine was performed. CONTRAST MATERIAL: IV Contrast: 19 mL of Dotarem contrast administered. COMPARISON: MR MR LS SPINE WO CONTRAST from 03/28/2018 FINDINGS: Bones: The last intervertebral disc space is designated the L5/S1 level for the numbering purpose of this examination. The vertebral body heights are well maintained. Since the prior examination the p [place] has undergone L5 laminectomy. There is a mild left convex curvature of the spine. There is a lso now fat signal intensity on both the T1 and T2 weighted images in the lumbar spine and sacrum. T his may reflect interval radiation therapy. Cord: The conus tip ends at the T12 level. It is of normal size and signal intensity. T12-L1: There is a small left paracentral disc herniation. There are degenerative changes of the fac ets. There is mild narrowing of the central spinal canal. No significant neural foraminal stenosis is present. L1-2: No disc herniations or bulges are present. No central spinal canal or neural foraminal stenosis . L2-3: There is a mild diffuse disc bulge. There are hypertrophic changes of the facets and ligamentu m flavum. These all contribute to cause [id number] central spinal canal stenosis. No signific ant neural foraminal stenosis is present. L3-4: There is mild prominence of the osteophyte disc complex. Degenerative changes of the facets ar e seen. No significant central spinal canal stenosis is present. There is mild narrowing of the kashif ral foramen bilaterally. L4-5: There is a mild diffuse disc bulge. No significant central spinal canal or right neural forami nal stenosis is seen. There is [id number] left neural foraminal stenosis. L5-S1: There is a mild diffuse disc bulge. No central spinal canal stenosis is present. There is ma rked bilateral neural foraminal stenosis present. Soft tissues: The visualized SI joints and sacrum are well maintained. No soft tissue mass is appreci ated. Postsurgical changes are seen in the soft tissues posterior to the spine. There is a nonspeci fic fluid collection posterior to the L5 vertebral body. It measures 1.5 transverse by 1.3 AP by 3.1 craniocaudad. No enhancing masses are identified. IMPRESSION: 1. Status post L5 laminectomy and probable radiation therapy to the lower lumbar spine and pelvis. 2. 1.5 x 1.3 x 3.1 cm nonspecific fluid collection in the surgical bed in the soft tissues posterior to L5. This may represent a seroma, resolving hematoma or possible abscess. 3. No soft tissue mass or enhancing mass. 4. Multilevel degenerative changes in the lumbar spine resulting in central spinal canal neural shan inal stenosis as described above. DATA REPOSITORY:
--- NOTE | 2022-05-21 12:15 | DI.MRI_ITS ---
Exam(s) MR THORACIC SPINE WO/W EXAM: MR THORACIC SPINE WO/W CLINICAL HISTORY: PARASPINAL MASS/TUMOR, PROSTATE CA, C61, OSSEOUS METS, C79.51. TECHNIQUE: Multiplanar multisequence MRI of the Thoracic spine was performed. CONTRAST MATERIAL: IV Contrast: mL of Dotarem contrast administered. COMPARISON: MR MR LS SPINE WO CONTRAST from 03/28/2018 FINDINGS: Bones: The vertebral body heights are well maintained. Alignment is satisfactory. There is abnormal h ypointense T1 and T2 weighted signal in several thoracic vertebra. The signal involves vertebral bod ies with extension into the posterior elements. The findings are most marked in T4 and T9 through T1 1. Cord: The thoracic cord is normal size and signal intensity. No intrinsic cord lesion is present. Discs: No disc herniation or bulge is present. Soft tissues: Normal. T1-2: No disc herniation or bulge is identified. No central spinal canal or neural foraminal stenosis . T2-3: No disc herniation or bulge is identified. No central spinal canal or neural foraminal stenosis . T4-5: No disc herniation or bulge is identified. No central spinal canal or neural foraminal stenosis . T5-6: No disc herniation or bulge is identified. No central spinal canal or neural foraminal stenosis . T6-7: No disc herniation or bulge is identified. No central spinal canal or neural foraminal stenosis . T7-8: No disc herniation or bulge is identified. No central spinal canal or neural foraminal stenosis . T8-9: There is a small central disc herniation. No central spinal canal or neural foraminal stenosis . T9-10: No disc herniation or bulge is identified. No central spinal canal or neural foraminal stenosi s. T10-11:There is a mild diffuse disc bulge. Mild narrowing of the central spinal canal. No significa nt neural foraminal stenosis. T11-12: There is a mild diffuse disc bulge. Mild narrowing of the central spinal canal. No signific ant neural foraminal stenosis. T12-L1: No disc herniations or bulges are present. No central spinal canal or neural foraminal steno sis. No enhancing soft tissue mass is appreciated. IMPRESSION: 1. Abnormal signal seen in multiple thoracic vertebral bodies and posterior elements suspicious for m etastatic disease. 2. No evidence of a soft tissue mass or enhancing lesion. 3. Degenerative changes in the lower thoracic spine including a small central disc herniation at T8-T 9. No significant neural foraminal stenosis is seen. There is mild narrowing of the central spinal canal at T10-T11 and T11-T12. DATA REPOSITORY:
[2022-05-21] MEDS: Normal Saline Flush 10 ML SYR IVP (13:38)
[2022-05-21] MEDS: Gadoterate meglumine 20 ML SYRINGE 19 ML IVP (13:39)
== END ==
PROVIDERS: PCP Internal Medicine; Visit Provider Internal Medicine Hematology & Oncology
DX: M43.04 Spondylolysis, thoracic region (principal); M48.04 Spinal stenosis, thoracic region; M51.24 Other intervertebral disc displacement, thoracic region; M43.06 Spondylolysis, lumbar region; M48.061 Spinal stenosis, lumbar region without neurogenic claudication; R93.0 Abnormal findings on diagnostic imaging of skull and head, not elsewhere classified
CPT/HCPCS: 72158; 72157

== ENCOUNTER → 2022-06-03 01:29 | Outpatient (CLI) | payer MEDICARE, MEDICAID, SELFPAY ==
--- NOTE | 2022-06-03 10:15 | DI.NM_ITS ---
Exam(s) NV BONE SCAN WHOLE BODY GRP EXAM: NV BONE SCAN WHOLE BODY GRP CLINICAL HISTORY: PROSTATE CA, C61, ASSESS TREATMENT RESPONSE. TECHNIQUE: Injected Dose: 25 mCi Tc-99m MDP Delayed Images: 2-3 hours. COMPARISON: CT CT CHEST/ABD/PELVIS W/CONTRAST from 01/05/2020 NV NM BONE SCAN WHOLE BODY from 03/20/2021 FINDINGS: Symmetric axial uptake. Bilateral renal excretion is identified. There are again seen foci of increas ed radiotracer uptake in the sternum in the spine. The areas are less intense compared to the prior examination. No new areas of increased radiotracer uptake are seen in axial or appendicular skeleton . Symmetric activity is seen in the shoulder and wrists which is likely degenerative. Stable increa sed radiotracer uptake is seen in the left foot. IMPRESSION: 1. No new areas of radiotracer uptake are seen since the prior examination 03/20/2021. DATA REPOSITORY:
[2022-06-03 10:36] LABS: Abs Immature Grans 0.01 10^3/uL (0.0-0.06); Absolute Basophil Count 0.04 10^3/uL (0.0-0.2); Absolute Eosinophil Count 0.14 10^3/uL (0.0-0.7); Absolute Lymphocyte Count 1.37 10^3/uL (1.2-3.4); Absolute Monocyte Count 0.29 10^3/uL (0.1-0.8); Absolute Neutrophil Count 2.22 10^3/uL (1.2-6.7); Eosinophils % 3.4; HCT 40.7 % (40.0-50.0); HGB 13.2 g/dL (13.5-17.5); Immature Grans % 0.2; Lymphocytes % 33.7; MCH 28.1 pg (27.0-33.0); MCHC 32.4 % (32.0-36.0); MCV 87 fL (80-95); MPV 9.2 fL (8.0-11.0); Monocytes % 7.1; Neutrophils % 54.6; Platelet Count 214 10^3/uL (130-400); RBC 4.69 10^6/uL (4.36-5.78); RDW 12.5 % (11.8-14.1); RDW-SD 39.6 fL; WBC 4.07 10^3/uL (4.4-10.8)
[2022-06-03] MEDS: Barium Sulfate 2% W/V-Berry Smoothie 450 ML BTL 900 ML PO (10:44)
[2022-06-03 11:25] LABS: ALT 45 U/L (16-63); AST 34 U/L (15-37); Albumin 3.5 g/dL (3.4-5.0); Alkaline Phosphatase 128 U/L (46-116); Anion Gap 6.8 mmol/L (3-11); BUN 15 mg/dL (7-18); Bilirubin, Total 0.3 mg/dL (0.2-1.0); CO2 29.2 mmol/L (21.0-32.0); CREATININE 0.9 mg/dL (0.70-1.30); Calcium 8.9 mg/dL (8.5-10.1); Chloride 105 mmol/L (98-107); Glucose 100 mg/dL (74-106); Potassium 4.7 mmol/L (3.5-5.1); Sodium 141 mmol/L (136-145); Total Protein 7.1 g/dL (6.4-8.2)
--- NOTE | 2022-06-03 12:00 | DI.CT_ITS ---
Exam(s) CT CHEST/ABD/PEL W EXAM: CT CHEST/ABD/PEL W CLINICAL HISTORY: PROSTATE CA, C61, ASSESS TREATMENT RESPONSE TECHNIQUE: Imaging Protocol: Axial computed tomography images with coronal and sagittal reformatted images were created and reviewed CONTRAST MATERIAL: Intravenous: Omnipaque 350 contrast volume:100 mL Oral: Yes COMPARISON: CT CT CHEST/ABD/PELVIS W/CONTRAST from 01/05/2020 FINDINGS: CHEST: Tracheobronchial tree: Patent where visualized. Pulmonary parenchyma: No consolidation or dominant measurable mass. Mild centrilobular emphysematous changes are present. Visualized thyroid gland: Unremarkable. Mediastinum and Valorie: No dominant adenopathy or fluid collection. The esophagus is unremarkable. Pleura: No effusion or pneumothorax. Heart: The heart is not dilated. Coronary artery calcifications are present. No pericardial effusion . Pulmonary arteries: No pulmonary emboli are identified. Aorta: Thoracic aorta non-dilated. Mild atherosclerosis. Lymph nodes: Within normal limits. Soft tissues: Unremarkable. Bones:There has been interval progression of the sclerotic metastatic disease since 01/05/2020. ABDOMEN: Liver: Normal density. No measurable mass. Portal, Superior Mesenteric, and Splenic Veins: Unremarkable. Gallbladder and Biliary Tract: No radiodense calculus or dilation. Pancreas: Normal density, no abnormal calcifications or inflammatory process. Spleen: Normal. Adrenals: No masses seen. Kidneys: Normal size, contour and axis. No radiodense stones or obstructive uropathy. No masses seen. Abdominal Aorta: Abdominal portion non-dilated. Atherosclerosis is present. Bowel: No obstruction or bowel wall thickening. Appendix is unremarkable. Peritoneal Cavity: No ascites, collection or mesenteric inflammatory response. No free air. Lymph Nodes: Within normal limits. Bones: Within normal limits for the patient's age. There are sclerotic foci seen in the lower thorac ic spine in the inferior spur sternum consistent with metastatic disease. Status post L 5 laminectom y. Soft Tissues: There is a small fat containing umbilical hernia. There is again seen a fat containing left inguinal hernia. There is a small fat containing right inguinal hernia. PELVIS: Bladder: Symmetric distention, no gross wall thickening. Reproductive Organs: Unremarkable as visualized. Lymph Nodes: Within normal limits. Bones: Within normal limits. IMPRESSION: 1. Interval progression of the osseous sclerotic metastatic disease since 01/05/2020. 2. No other pulmonary, abdominal or pelvic metastatic disease. RADIATION DOSE DELIVERED: 1,966.97mGy.cm Total DLP DATA REPOSITORY: All CT scans at this facility are submitted to the National Radiology Data Registry (NRDR) Dose Index Registry (DIR) with the [employer] ([employer]). RADIATION OPTIMIZATION: All CT scans at this facility use at least one of these dose optimization te chniques: automated exposure control; mA and/or kV adjustment per patient size (includes targeted exa ms where dose is matched to clinical indication); or iterative reconstruction.
[2022-06-03] MEDS: Omnipaque 350 MG/ML 100 ML BTL IJ (12:17)
[2022-06-04 14:59] LABS: PSA, Ultrasensitive 4.2 ng/mL (<= 6.5)
== END ==
PROVIDERS: PCP Internal Medicine; Visit Provider Internal Medicine Hematology & Oncology
DX: C79.51 Secondary malignant neoplasm of bone (principal); C61 Malignant neoplasm of prostate
CPT/HCPCS: 74177; 78306; 80053; 84153; 71260; 85025; J3490

== ENCOUNTER 2022-09-15 03:48 | Outpatient (CLI) | payer MEDICARE, MEDICAID, SELFPAY ==
[2022-09-15 14:16] LABS: Abs Immature Grans 0.01 10^3/uL (0.0-0.06); Absolute Basophil Count 0.05 10^3/uL (0.0-0.2); Absolute Lymphocyte Count 1.18 10^3/uL (1.2-3.4); Absolute Monocyte Count 0.37 10^3/uL (0.1-0.8); Absolute Neutrophil Count 2.28 10^3/uL (1.2-6.7); Basophils % 1.2; Eosinophils % 4.9; HCT 37.3 % (40.0-50.0); HGB 11.8 g/dL (13.5-17.5); Immature Grans % 0.2; Lymphocytes % 28.9; MCH 27.8 pg (27.0-33.0); MCHC 31.6 % (32.0-36.0); MCV 88 fL (80-95); MPV 9.3 fL (8.0-11.0); Neutrophils % 55.8; Platelet Count 232 10^3/uL (130-400); RBC 4.24 10^6/uL (4.36-5.78); RDW 13.3 % (11.8-14.1); RDW-SD 42.6 fL; WBC 4.09 10^3/uL (4.4-10.8)
[2022-09-15 15:43] LABS: ALT 42 U/L (16-63); AST 34 U/L (15-37); Albumin 3.4 g/dL (3.4-5.0); Alkaline Phosphatase 156 U/L (46-116); Anion Gap 8.1 mmol/L (3-11); BUN 12 mg/dL (7-18); Bilirubin, Total 0.3 mg/dL (0.2-1.0); CO2 26.9 mmol/L (21.0-32.0); CREATININE 0.8 mg/dL (0.70-1.30); Calcium 8.9 mg/dL (8.5-10.1); Chloride 107 mmol/L (98-107); Estimated GFR 91.72 (mL/min/1.73m2); Glucose 89 mg/dL (74-106); Potassium 3.7 mmol/L (3.5-5.1); Sodium 142 mmol/L (136-145); Total Protein 7.3 g/dL (6.4-8.2)
[2022-09-16 21:07] LABS: PSA, Ultrasensitive 5.6 ng/mL (<= 6.5)
== END 2022-09-15 03:49 | disposition home or self-care (01) ==
LOC: LBO 03:48
PROVIDERS: PCP Internal Medicine; Visit Provider Internal Medicine Hematology & Oncology
DX: C61 Malignant neoplasm of prostate (principal); C79.51 Secondary malignant neoplasm of bone
CPT/HCPCS: 36415; 80053; 84153; 85025

== ENCOUNTER → 2022-10-21 01:08 | Outpatient (CLI) | payer MEDICARE, MEDICAID, SELFPAY ==
--- NOTE | 2022-10-21 | DI.CT_ITS ---
Exam(s) CT CHEST/ABD/PEL W EXAM: CT CHEST/ABD/PEL W CLINICAL HISTORY: PROSTATE CA,ASSESS TREATMENT RESPONSE,INCREASED GYSYMTPOMS,CHRONIC COUGH,WT TECHNIQUE: Imaging Protocol: Axial computed tomography images with coronal and sagittal reformatted images were created and reviewed CONTRAST MATERIAL: Intravenous: Omnipaque 350 contrast volume:100 mL Oral: Yes COMPARISON: MR MR LS SPINE WO CONTRAST from 03/28/[address] CHEST/ABD/PEL W from 06/03/2022 FINDINGS: CHEST: Tracheobronchial tree: Patent where visualized. Pulmonary parenchyma: No consolidation or dominant measurable mass. Mild emphysematous changes are pr esent in the lungs. Visualized thyroid gland: Unremarkable. Mediastinum and Valorie: No dominant adenopathy or fluid collection. The esophagus is unremarkable. Pleura: No effusion or pneumothorax. Heart: The heart is not dilated. Moderate coronary artery calcification is present. No pericardial e ffusion. Pulmonary arteries: The segmental and subsegmental pulmonary arteries are inadequately opacified for evaluation of pulmonary emboli. No large central pulmonary embolus is seen. Aorta: Thoracic aorta non-dilated. Mild atherosclerosis. Lymph nodes: Within normal limits. Soft tissues: Unremarkable. Bones:Within normal limits for the patient's age. There is again seen osseous metastatic disease. T here has been progression of the metastatic disease seen in the sternum. ABDOMEN: Liver: Normal density. No measurable mass. Portal, Superior Mesenteric, and Splenic Veins: Unremarkable. Gallbladder and Biliary Tract: No radiodense calculus or dilation. Pancreas: Normal density, no abnormal calcifications or inflammatory process. Spleen: Normal. Adrenals: No masses seen. Kidneys: Normal size, contour and axis. No radiodense stones or obstructive uropathy. No masses seen. Abdominal Aorta: Abdominal portion non-dilated. Atherosclerosis is present. Bowel: No obstruction or bowel wall thickening. Appendix is unremarkable. Peritoneal Cavity: No ascites, collection or mesenteric inflammatory response. No free air. Lymph Nodes: Within normal limits. Bones: Within normal limits for the patient's age. Soft Tissues: There is a stable 2 x 1.8 by 3.4 cm fluid collection posterior to the L5 laminectomy si te. This is unchanged dating back to 05/21/2022 MRI of the lumbar spine. PELVIS: Bladder: Symmetric distention, no gross wall thickening. Reproductive Organs: Unremarkable as visualized. Lymph Nodes: Within normal limits. Bones: Within normal limits. IMPRESSION: 1. Findings of osseous metastatic disease. There has been increase in the size of the sternal metast atic focus compared to 06/03/2022. 2. No pulmonary, abdominal or pelvic metastatic disease. RADIATION DOSE DELIVERED: 1,603.18mGy.cm Total DLP DATA REPOSITORY: All CT scans at this facility are submitted to the National Radiology Data Registry (NRDR) Dose Index Registry (DIR) with the [employer] (ACR). RADIATION OPTIMIZATION: All CT scans at this facility use at least one of these dose optimization te chniques: automated exposure control; mA and/or kV adjustment per patient size (includes targeted exa ms where dose is matched to clinical indication); or iterative reconstruction.
[2022-10-21 09:25] LABS: Abs Immature Grans 0.01 10^3/uL (0.0-0.06); Absolute Basophil Count 0.05 10^3/uL (0.0-0.2); Absolute Eosinophil Count 0.15 10^3/uL (0.0-0.7); Absolute Lymphocyte Count 1.03 10^3/uL (1.2-3.4); Absolute Monocyte Count 0.31 10^3/uL (0.1-0.8); Absolute Neutrophil Count 2.24 10^3/uL (1.2-6.7); Basophils % 1.3; HCT 39.8 % (40.0-50.0); HGB 12.6 g/dL (13.5-17.5); Immature Grans % 0.3; Lymphocytes % 27.2; MCH 27.9 pg (27.0-33.0); MCHC 31.7 % (32.0-36.0); MCV 88 fL (80-95); MPV 9.2 fL (8.0-11.0); Monocytes % 8.2; Platelet Count 207 10^3/uL (130-400); RBC 4.52 10^6/uL (4.36-5.78); RDW 12.9 % (11.8-14.1); RDW-SD 42.1 fL; WBC 3.79 10^3/uL (4.4-10.8)
[2022-10-21 09:45] LABS: ALT 38 U/L (16-63); AST 32 U/L (15-37); Albumin 3.5 g/dL (3.4-5.0); Alkaline Phosphatase 123 U/L (46-116); Anion Gap 6.1 mmol/L (3-11); BUN 14 mg/dL (7-18); Bilirubin, Total 0.3 mg/dL (0.2-1.0); CO2 27.9 mmol/L (21.0-32.0); Calcium 8.6 mg/dL (8.5-10.1); Chloride 104 mmol/L (98-107); Glucose 109 mg/dL (74-106); Potassium 4.1 mmol/L (3.5-5.1); Sodium 138 mmol/L (136-145); Total Protein 7.1 g/dL (6.4-8.2)
[2022-10-21] MEDS: Barium Sulfate 2% W/V-Berry Smoothie 450 ML BTL 900 ML PO (10:12)
[2022-10-21] MEDS: Normal Saline - Diluent 50 ML VIAL IJ (10:58)
[2022-10-21] MEDS: Omnipaque 350 MG/ML 100 ML BTL IJ (10:58)
[2022-10-22 19:22] LABS: PSA, Ultrasensitive 7.5 ng/mL (<= 6.5)
== END ==
PROVIDERS: PCP Internal Medicine; Visit Provider Nurse Practitioner Family
DX: C61 Malignant neoplasm of prostate (principal); R05.3 Chronic cough; R63.4 Abnormal weight loss; Z12.89 Encounter for screening for malignant neoplasm of other sites; J43.8 Other emphysema; C79.51 Secondary malignant neoplasm of bone
CPT/HCPCS: 74177; 80053; 84153; 71260; 85025; J3490

== ENCOUNTER → 2022-10-30 00:20 | Outpatient (CLI) | payer MEDICARE, MEDICAID, SELFPAY ==
--- NOTE | 2022-10-30 | DI.NM_ITS ---
Exam(s) HI BONE SCAN WHOLE BODY GRP EXAM: [place] BONE SCAN WHOLE BODY GRP CLINICAL HISTORY: PROSTATE CA,C61,ASSESS TREATMENT RESPONSE. TECHNIQUE: Injected Dose: 25 mCi Tc-99m MDP Delayed Images: 2-3 hours. COMPARISON: [facility] BONE SCAN WHOLE BODY GRP from 06/03/2022 FINDINGS: In the sternum. Bilateral renal excretion is identified. There has been an increase in size of the s ternal uptake. There is stable uptake seen in the spine. There is a new tiny focus of increased rad iotracer uptake in the diaphysis of the right femur. There is stable uptake seen in the shoulders an d hands bilaterally and the left foot. IMPRESSION: 1. Increased uptake in the sternum since 06/03/2022. 2. New focus of uptake in the right femoral diaphysis. 3. Stable uptake in the spine. 4. Stable uptake in the left foot. DATA REPOSITORY:
[2022-10-30 10:32] LABS: Abs Immature Grans 0.01 10^3/uL (0.0-0.06); Absolute Basophil Count 0.02 10^3/uL (0.0-0.2); Absolute Eosinophil Count 0.18 10^3/uL (0.0-0.7); Absolute Lymphocyte Count 1.09 10^3/uL (1.2-3.4); Absolute Monocyte Count 0.29 10^3/uL (0.1-0.8); Absolute Neutrophil Count 2.58 10^3/uL (1.2-6.7); Basophils % 0.5; Eosinophils % 4.3; HCT 37.7 % (40.0-50.0); HGB 11.9 g/dL (13.5-17.5); Immature Grans % 0.2; Lymphocytes % 26.1; MCH 27.8 pg (27.0-33.0); MCHC 31.6 % (32.0-36.0); MCV 88 fL (80-95); MPV 9.4 fL (8.0-11.0); Neutrophils % 61.9; Platelet Count 216 10^3/uL (130-400); RBC 4.28 10^6/uL (4.36-5.78); RDW-SD 42.2 fL; WBC 4.17 10^3/uL (4.4-10.8)
[2022-10-30 11:23] LABS: ALT 34 U/L (16-63); AST 36 U/L (15-37); Albumin 3.3 g/dL (3.4-5.0); Alkaline Phosphatase 132 U/L (46-116); Anion Gap 6.6 mmol/L (3-11); BUN 14 mg/dL (7-18); Bilirubin, Total 0.2 mg/dL (0.2-1.0); CO2 29.4 mmol/L (21.0-32.0); Calcium 8.9 mg/dL (8.5-10.1); Chloride 106 mmol/L (98-107); Glucose 120 mg/dL (74-106); Potassium 3.9 mmol/L (3.5-5.1); Sodium 142 mmol/L (136-145)
[2022-11-03 18:34] LABS: PSA, Ultrasensitive 7.3 ng/mL (<= 6.5)
== END ==
PROVIDERS: Internal Medicine Hematology & Oncology; PCP Internal Medicine; Visit Provider Nurse Practitioner Family
DX: C79.51 Secondary malignant neoplasm of bone (principal); C61 Malignant neoplasm of prostate
CPT/HCPCS: 78306; 80053; 84153; 85025

== ENCOUNTER 2022-11-17 03:21 | Outpatient (CLI) | payer MEDICARE, MEDICAID, SELFPAY ==
[2022-11-17 15:47] LABS: Abs Immature Grans 0.01 10^3/uL (0.0-0.06); Absolute Basophil Count 0.04 10^3/uL (0.0-0.2); Absolute Eosinophil Count 0.18 10^3/uL (0.0-0.7); Absolute Monocyte Count 0.37 10^3/uL (0.1-0.8); Basophils % 0.9; HCT 40.8 % (40.0-50.0); HGB 12.9 g/dL (13.5-17.5); Immature Grans % 0.2; Lymphocytes % 31.1; MCH 27.4 pg (27.0-33.0); MCHC 31.6 % (32.0-36.0); MCV 87 fL (80-95); Monocytes % 8.2; Neutrophils % 55.6; Platelet Count 223 10^3/uL (130-400); RDW 12.9 % (11.8-14.1); RDW-SD 41.1 fL
[2022-11-17 16:39] LABS: ALT 41 U/L (16-63); AST 34 U/L (15-37); Albumin 3.6 g/dL (3.4-5.0); Alkaline Phosphatase 158 U/L (46-116); Anion Gap 5.9 mmol/L (3-11); BUN 16 mg/dL (7-18); Bilirubin, Total 0.2 mg/dL (0.2-1.0); CO2 30.1 mmol/L (21.0-32.0); CREATININE 0.9 mg/dL (0.70-1.30); Calcium 9.2 mg/dL (8.5-10.1); Chloride 105 mmol/L (98-107); Estimated GFR 88.51 (mL/min/1.73m2); Glucose 81 mg/dL (74-106); Potassium 4.2 mmol/L (3.5-5.1); Sodium 141 mmol/L (136-145)
[2022-11-18 15:29] LABS: PSA, Ultrasensitive 8.9 ng/mL (<= 6.5)
== END 2022-11-17 03:22 | disposition home or self-care (01) ==
LOC: LBO 03:22
PROVIDERS: PCP Internal Medicine; Visit Provider Internal Medicine Hematology & Oncology
DX: C61 Malignant neoplasm of prostate (principal); C79.51 Secondary malignant neoplasm of bone
CPT/HCPCS: 36415; 80053; 84153; 85025

== ENCOUNTER 2023-02-11 03:12 | Outpatient (CLI) | payer MEDICARE, MEDICAID, SELFPAY ==
[2023-02-11 13:09] LABS: Abs Immature Grans 0.02 10^3/uL (0.0-0.06); Absolute Basophil Count 0.04 10^3/uL (0.0-0.2); Absolute Lymphocyte Count 1.38 10^3/uL (1.2-3.4); Absolute Monocyte Count 0.27 10^3/uL (0.1-0.8); Absolute Neutrophil Count 2.63 10^3/uL (1.2-6.7); Basophils % 0.9; Eosinophils % 2.3; HCT 38.7 % (40.0-50.0); HGB 12.5 g/dL (13.5-17.5); Immature Grans % 0.5; Lymphocytes % 31.1; MCH 27.7 pg (27.0-33.0); MCHC 32.3 % (32.0-36.0); MCV 86 fL (80-95); MPV 8.8 fL (8.0-11.0); Monocytes % 6.1; Neutrophils % 59.1; Platelet Count 223 10^3/uL (130-400); RBC 4.51 10^6/uL (4.36-5.78); RDW 13.2 % (11.8-14.1); RDW-SD 41.2 fL; WBC 4.44 10^3/uL (4.4-10.8)
[2023-02-11 13:26] LABS: ALT 33 U/L (16-63); AST 26 U/L (15-37); Albumin 3.4 g/dL (3.4-5.0); Alkaline Phosphatase 154 U/L (46-116); Anion Gap 7.3 mmol/L (3-11); BUN 14 mg/dL (7-18); Bilirubin, Total 0.3 mg/dL (0.2-1.0); CO2 26.7 mmol/L (21.0-32.0); Chloride 105 mmol/L (98-107); Glucose 109 mg/dL (74-106); Potassium 3.6 mmol/L (3.5-5.1); Sodium 139 mmol/L (136-145)
[2023-02-12 16:50] LABS: PSA, Ultrasensitive 16.3 ng/mL (<= 6.5)
== END 2023-02-11 03:13 | disposition home or self-care (01) ==
PROVIDERS: Visit Provider Internal Medicine Hematology & Oncology
DX: C61 Malignant neoplasm of prostate (principal); C79.51 Secondary malignant neoplasm of bone
CPT/HCPCS: 36415; 80053; 84153; 85025

== ENCOUNTER 2023-08-25 10:04 | Outpatient (CLI) | payer MEDICARE, MEDICAID, SELFPAY ==
[2023-08-25 12:13] LABS: Abs Immature Grans 0.03 10^3/uL (0.0-0.06); Absolute Basophil Count 0.02 10^3/uL (0.0-0.2); Absolute Lymphocyte Count 0.71 10^3/uL (1.2-3.4); Absolute Monocyte Count 0.32 10^3/uL (0.1-0.8); Absolute Neutrophil Count 1.93 10^3/uL (1.2-6.7); Basophils % 0.6; Eosinophils % 3.2; HCT 34.8 % (40.0-50.0); HGB 11.5 g/dL (13.5-17.5); Lymphocytes % 22.8; MCH 28.3 pg (27.0-33.0); MCV 86 fL (80-95); MPV 9.1 fL (8.0-11.0); Monocytes % 10.3; Neutrophils % 62.1; Platelet Count 177 10^3/uL (130-400); RBC 4.07 10^6/uL (4.36-5.78); RDW 12.9 % (11.8-14.1); RDW-SD 39.9 fL; WBC 3.11 10^3/uL (4.4-10.8)
[2023-08-25 12:51] LABS: ALT 33 U/L (16-63); AST 64 U/L (15-37); Albumin 3.2 g/dL (3.4-5.0); Anion Gap 10.6 mmol/L (3-11); BUN 18 mg/dL (7-18); Bilirubin, Total 0.3 mg/dL (0.2-1.0); CO2 25.4 mmol/L (21.0-32.0); CREATININE 1.2 mg/dL (0.70-1.30); Calcium 9.2 mg/dL (8.5-10.1); Chloride 104 mmol/L (98-107); Estimated GFR 62.29 (mL/min/1.73m2); Glucose 103 mg/dL (74-106); Potassium 3.9 mmol/L (3.5-5.1); Sodium 140 mmol/L (136-145); Total Protein 7.2 g/dL (6.4-8.2)
[2023-08-25 12:54] LABS: Alkaline Phosphatase 1171 U/L (46-116)
[2023-08-26 20:21] LABS: PSA, Ultrasensitive 154 ng/mL (<= 6.5)
[2023-08-29 14:53] LABS: Testosterone, Total 8.6 ng/dL (240-950)
== END 2023-08-25 10:05 | disposition home or self-care (01) ==
LOC: LBO 10:05
PROVIDERS: Visit Provider Internal Medicine
DX: C79.51 Secondary malignant neoplasm of bone (principal)
CPT/HCPCS: 36415; 80053; 84153; 84403; 85025

== ENCOUNTER 2023-09-24 09:52 | Emergency (ER) | payer MEDICARE, MEDICAID, SELFPAY ==
[2023-09-24] VITALS (40 sets, daily range): BP systolic 130–198; BP diastolic 59–79; PULSE 82–119; RESP 12–40; TEMP 36.6; O2SAT 87
--- NOTE | 2023-09-24 09:45 | RT.EKG_ITS ---
APPROVED REPORT Exam: Resting ECG Reason for Exam: Dyspnea Patient Location: E HR:100 bpm ECG Measurements Heart Rate 100 AXIS AR 233 P 37 QRSd 87 QRS 38 QT 330 T -22 QTc 426 Conclusion Sinus tachycardia...rate> 99 Prolonged AR interval...AR >215, V-rate 91-120 sinus tachycardia, normal axis, prolonged AR, non ischemic
[2023-09-24] MEDS: Normal Saline 500 ML 1000 ML IV (10:14)
[2023-09-24 10:18] LABS: BE (Venous) -1 mmol/L (-2-3); HCO3 (Venous) 24 mmol/L (23-28); O2 Sat (Venous) 70 %; TCO2 (Venous) 23 mmol/L (24-29); pCO2 (Venous) 42 mmHg (41-51); pH (Venous) 7.37 (7.31-7.41); pO2 (Venous) 40 mmHg
[2023-09-24 10:20] LABS: Abs Immature Grans 0.04 10^3/uL (0.0-0.06); Absolute Basophil Count 0.02 10^3/uL (0.0-0.2); Absolute Eosinophil Count 0.07 10^3/uL (0.0-0.7); Absolute Lymphocyte Count 0.84 10^3/uL (1.2-3.4); Absolute Monocyte Count 0.33 10^3/uL (0.1-0.8); Absolute Neutrophil Count 2.21 10^3/uL (1.2-6.7); Basophils % 0.6; HCT 32.6 % (40.0-50.0); HGB 10.7 g/dL (13.5-17.5); Immature Grans % 1.1; Lymphocytes % 23.9; MCH 28.3 pg (27.0-33.0); MCHC 32.8 % (32.0-36.0); MCV 86 fL (80-95); MPV 9.2 fL (8.0-11.0); Monocytes % 9.4; Platelet Count 154 10^3/uL (130-400); RBC 3.78 10^6/uL (4.36-5.78); RDW 14.1 % (11.8-14.1); RDW-SD 44.1 fL; WBC 3.51 10^3/uL (4.4-10.8)
--- NOTE | 2023-09-24 10:24 | W.ED.GENAD ---
Discharge Plan Disposition Patient Disposition: Home Condition: Improving Discharge Details Clinical Impression: Pneumonia Primary Care Provider: Unknown,Unknown ED Provider: Cruz Cortés Home Meds and New Rx's Prescriptions: New azithromycin 250 mg tablet 250 mg PO DAILY 4 Days Qty: 4 0RF Rx Instructions: start on day 2 of therapy amoxicillin-pot clavulanate 875-125 mg tablet 1 tab PO BID 5 Days Qty: 10 0RF No Action naproxen sodium [Aleve] 220 mg tablet 220 mg PO BID PRN ondansetron 4 mg tablet,disintegrating 4 mg PO Q8H PRN (Reason: nausea and vomiting) Qty: 60 3RF senna 8.6 mg capsule 8.6 mg PO BID PRN (Reason: constipation) Qty: 60 3RF black sesame seed See Rx Instructions PO .COMPLEX Rx Instructions: 1 tbs q 2-3 days orally; modafinil [Provigil] 100 mg tablet 100 - 200 mg PO DAILY Qty: 30 0RF Rx Instructions: for cancer related fatigue oxycodone 5 mg tablet 5 mg PO Q4H PRN MDD 30 mg PRN (Reason: pain) Qty: 40 0RF polyethylene glycol 3350 [Miralax] 17 gram/dose powder 17 g PO DAILY Qty: 238 0RF bisacodyl [Dulcolax (bisacodyl)] 5 mg tablet,delayed release (DR/EC) 5 mg PO ONCE PRN (Reason: constipation) Qty: 10 0RF Rx Instructions: once daily PRN Curcumin 95 % powder 1 pwd miscellaneous DAILY garlic 5,000 mcg tablet 5 mg PO DAILY dasha extract 250 mg capsule 250 mg PO DAILY pumpkin seed extract 500 mg capsule 500 mg PO DAILY aspirin 325 mg tablet 325 mg PO PRN Discharge Instructions Instructions: Pneumonia (ED) Additional Instructions: Please follow-up closely with your primary care physician. Please return to the emergency department for any worsening symptoms Medical Decision Making 78-year-old male history of metastatic prostate cancer, has discontinued therapy due to side effects, recent travel from [place], presents with acute onset shortness of breath today associated with fatigue and nonexertional chest pain. Noted to be tachycardic on arrival EKG sinus tachycardia with T wave inversions in lead II and apparent ST depressions inferior leads. No cough no fever, hypoxic to the 80s on room air placed on nasal cannula with improvement to 99%, no peripheral edema noted. Patient is alert oriented nontoxic. High clinical suspicion for PE must also consider pneumonia versus viral respiratory illness versus metastatic disease to lungs with pleural effusion versus less likely ACS or aortic pathology low suspicion for pneumothorax. Will obtain screening labs CTA chest, light fluid, viral screening, close reassessment. 14: 52 patient resting comfortably no acute distress saturating 95% on room air after nebs and steroid. Evidence of focal groundglass opacities bilaterally, have started empiric antibiotics. No respiratory distress. Symptoms have improved. Home care instructions and return precautions given. HPI General Date/Time Provider Initiated Documentation: 09/24/23 09:55. HPI Narrative: 78-year-old male history of metastatic prostate cancer, recently discontinued treatment due to side effects, presents with acute onset shortness of breath today, denies cough fevers chills, does have mild chest discomfort and fatigue. Denies history of thromboembolic disease, denies leg swelling or pain. Recent travel from [place]. Related Data Home Medications Medication Instructions Recorded Confirmed garlic 5,000 mcg tablet 5 mg PO DAILY 06/04/23 09/24/23 dasha (Zingiber officinalis) 250 250 mg PO DAILY 06/04/23 09/24/23 mg capsule (dasha extract) pumpkin seed extract 500 mg capsule 500 mg PO DAILY 06/04/23 09/09/23 turmeric (bulk) 95 % powder 1 pwd miscellaneous DAILY 06/04/23 09/09/23 (Curcumin) naproxen sodium 220 mg tablet 220 mg PO BID PRN 06/10/23 09/09/23 (Aleve) ondansetron 4 mg disintegrating 4 mg PO Q8H PRN nausea and 07/08/23 09/09/23 tablet vomiting #60 tabs sennosides 8.6 mg capsule (senna) 8.6 mg PO BID PRN constipation #60 07/08/23 09/09/23 caps aspirin 325 mg tablet 325 mg PO PRN 08/20/23 09/24/23 bisacodyl 5 mg tablet,delayed 5 mg PO ONCE PRN constipation #10 08/20/23 09/09/23 release (Dulcolax (bisacodyl)) tabs black sesame seed See Rx Instructions PO .COMPLEX 08/20/23 09/24/23 modafinil 100 mg tablet (Provigil) 100 - 200 mg (1 - 2 x 100 mg) PO 08/20/23 09/09/23 DAILY #30 tabs oxycodone 5 mg tablet 5 mg PO Q4H PRN PRN pain #40 tabs 08/20/23 09/09/23 polyethylene glycol 3350 17 17 g PO DAILY #238 grams 08/20/23 09/09/23 gram/dose oral powder (Miralax) amoxicillin 875 mg-potassium 1 tab PO BID 5 days #10 tabs 09/24/23 clavulanate 125 mg tablet azithromycin 250 mg tablet 250 mg PO DAILY 4 days #4 tabs 09/24/23 Previous Rx's Medication Instructions Recorded ondansetron 4 mg disintegrating 4 mg PO Q8H PRN nausea and 07/08/23 tablet vomiting #60 tabs sennosides 8.6 mg capsule (senna) 8.6 mg PO BID PRN constipation #60 07/08/23 caps bisacodyl 5 mg tablet,delayed 5 mg PO ONCE PRN constipation #10 08/20/23 release (Dulcolax (bisacodyl)) tabs modafinil 100 mg tablet (Provigil) 100 - 200 mg (1 - 2 x 100 mg) PO 08/20/23 DAILY #30 tabs oxycodone 5 mg tablet 5 mg PO Q4H PRN PRN pain #40 tabs 08/20/23 polyethylene glycol 3350 17 17 g PO DAILY #238 grams 08/20/23 gram/dose oral powder (Miralax) amoxicillin 875 mg-potassium 1 tab PO BID 5 days #10 tabs 09/24/23 clavulanate 125 mg tablet azithromycin 250 mg tablet 250 mg PO DAILY 4 days #4 tabs 09/24/23 Allergies Allergy/AdvReac Type Severity Reaction Status Date / Time No Known Allergies Allergy Unverified 09/24/23 10:00 General Stated Complaint: SOB/SuddenOnset LILIANE: 2 Review of Systems Narrative: Review of Systems Constitutional: Fatigue Eyes: negative ENT: negative Cardiovascular: Chest discomfort Respiratory: Shortness of breath Gastrointestinal: negative : negative Musculoskeletal: negative Skin: negative Neurologic: negative Psych: negative PFSH All Active Problems (Updated 09/24/23 @ 14:56 by Cruz Cortés MD) Pneumonia (Acute) High risk medication use (Acute) Palliative care encounter (Acute) Cancer related pain (Acute) Lumbar radiculitis (Acute) Medical History GERD (gastroesophageal reflux disease) HTN (hypertension) Hyperlipidemia Stable angina Paroxysmal A-fib CAD (coronary artery disease) 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 Elevated alkaline phosphatase level Anemia TIA (transient ischemic attack) Abnormal weight loss Shingles Left sided sciatica Prostate cancer metastatic to bone Myalgia Memory impairment Fatigue Metastatic malignant neoplasm to prostate Surgical History S/P PTCA (percutaneous transluminal coronary angioplasty) Family History Other Adopted Social History Smoking/Tobacco Use Status: Former Tobacco Use Smoking risk assessment performed?: Yes Alcohol Intake: never Drug use: Never Substance use type: does not use Housing: house Number of Children: 2 What type of physical activity do you participate in: swimming and additional Details: Pool therapy Do you feel safe at home: Yes Do you feel safe in your relationship?: Yes Exam Narrative Exam Narrative: Physical Examination General: alert, awake, cooperative, appears moderately uncomfortable HEENT: normocephalic, atraumatic; PERRL, EOM intact, conjunctiva normal; no nasal discharge; moist mucous membranes, oral and pharyngeal mucosa normal, tolerating secretions Neck: supple, trachea midline; full ROM Chest: normal to inspection Respiratory: normal respiratory effort, speaking in full sentences, clear to auscultation, no wheezing, rales or rhonchi Cardiac: Tachycardia, regular rhythm, S1S2 intact, no murmurs rubs or gallops GI: abdomen soft, non-tender, non-distended; no palpable mass or hepatosplenomegaly Skin: no lesions, rashes or trauma appreciated Neuro: AAOx3, normal speech, moving all extremities Extremities: No peripheral edema Psych: Appropriate mood and affect Course Vital Signs Vital signs: Vital Signs Temperature 36.6 C 09/24/23 09:55 Pulse 103 H 09/24/23 09:55 Respiratory Rate 20 09/24/23 09:55 Blood Pressure 180/71 H 09/24/23 09:55 Pulse Oximetry 87 L 09/24/23 09:55 Temperature 36.6 C 09/24/23 09:55 Temperature Source Oral 09/24/23 09:55 Pulse 103 H 09/24/23 09:55 Respiratory Rate 18 09/24/23 10:04 Respiratory Effort Short of Breath, Labored 09/24/23 10:05 Respiratory Depth Normal 09/24/23 10:04 Respiratory Pattern Normal 09/24/23 10:04 Blood Pressure 180/71 H 09/24/23 09:55 Blood Pressure Position Supine 09/24/23 09:55 Pulse Oximetry 87 L 09/24/23 09:55 Oxygen Delivery Method Room Air 09/24/23 09:55 Oxygen Flow Rate 0 09/24/23 09:55 Pain Level 0 09/24/23 09:55 Lab/Test Results Lab/Test Results: Laboratory Tests Range/Units 09/24/23 10:10 WBC (4.4-10.8) 10^3/uL 3.51 L RBC (4.36-5.78) 10^6/uL 3.78 L Hgb (13.5-17.5) g/dL 10.7 L Hct (40.0-50.0) % 32.6 L MCV (80-95) fL 86 MCH (27.0-33.0) pg 28.3 MCHC (32.0-36.0) % 32.8 RDW (11.8-14.1) % 14.1 Plt Count (130-400) 10^3/uL 154 MPV (8.0-11.0) fL 9.2 Immature Gran % 1.1 Neutrophils % 63.0 Lymphocytes % 23.9 Monocytes % 9.4 Eosinophils % 2.0 Basophils % 0.6 Nucleated RBC % (0.0-0.3) % 0.0 Absolute Neutrophils (1.2-6.7) 10^3/uL 2.21 Absolute Lymphocytes (1.2-3.4) 10^3/uL 0.84 L Absolute Monocytes (0.1-0.8) 10^3/uL 0.33 Absolute Eosinophils (0.0-0.7) 10^3/uL 0.07 Absolute Basophils (0.0-0.2) 10^3/uL 0.02 VBG pH (7.31-7.41) 7.37 VBG pCO2 (41-51) mmHg 42 VBG pO2 mmHg 40 VBG HCO3 (23-28) mmol/L 24 VBG Total CO2 (24-29) mmol/L 23 L VBG O2 Saturation % 70 VBG Base Excess (-2-3) mmol/L -1
[2023-09-24 10:33] LABS: INR 1.1 (0.9-1.1); PTT Activated 24.1 sec (23.6-32.8); Prothrombin Time 11.2 sec (9.1-11.1)
[2023-09-24 10:57] LABS: ALT 24 U/L (16-63); AST 102 U/L (15-37); Albumin 3.3 g/dL (3.4-5.0); Anion Gap 11.4 mmol/L (3-11); BUN 19 mg/dL (7-18); Bilirubin, Total 0.5 mg/dL (0.2-1.0); CO2 23.6 mmol/L (21.0-32.0); Calcium 9.3 mg/dL (8.5-10.1); Chloride 104 mmol/L (98-107); Estimated GFR 77.52 (mL/min/1.73m2); Glucose 110 mg/dL (74-106); Magnesium 2.1 mg/dL (1.8-2.4); NT-proBNP 58 pg/mL (<300); Potassium 3.7 mmol/L (3.5-5.1); Sodium 139 mmol/L (136-145); TSH (W/Ref FT4) 3.59 uIU/mL (0.36-3.74); Total Protein 7.3 g/dL (6.4-8.2); Troponin I < 50 ng/L (<or=60)
[2023-09-24 10:59] LABS: Alkaline Phosphatase 1410 U/L (46-116)
[2023-09-24] MEDS: Normal Saline - Diluent 50 ML VIAL IJ (11:14)
[2023-09-24] MEDS: Omnipaque 350 MG/ML 500 ML BTL-Imaging package 100 ML IJ (11:15)
--- NOTE | 2023-09-24 11:20 | DI.CT_ITS ---
Exam(s) CT CHEST PE CTA EXAM: CT CHEST PE CTA CLINICAL HISTORY: acute SOB, hx of met prostate CA. TECHNIQUE: Imaging Protocol: CT angiography of the chest was performed using pulmonary embolus karoline col. Multi planar reconstructions were performed. CONTRAST MATERIAL: Intravenous: Omnipaque 350 Contrast volume: 100 cc COMPARISON: CT CT CHEST/ABD/PEL W from 10/21/2022 FINDINGS: CHEST: PULMONARY ARTERIES: There are no intraluminal filling defects to suggest acute pulmonary emboli. LUNGS: There is a ground-glass nodular infiltrate in the superior aspect of the left upper lobe just anterior to the uppermost aspect of the major fissure, this measuring 1.5 x 1.1 cm. This was not pre viously present on CT scan of October 2022. No other significant focal left lung findings. In the opposite-right lung there is some mild subpleural peripheral lung glass infiltrate in the lower aspec t of the right upper lobe. There is also another 7 x 7 mm subpleural nodular infiltrate in the later al segment of the right middle lobe. None of these findings were previously present on CT scan of 2021.. There are no pleural effusions. MEDIASTINUM: There is no hilar nor mediastinal adenopathy. Visualized thyroid unremarkable. CARDIAC: Heart size is upper normal. There is no pericardial effusion.Caliber of the thoracic aorta is within normal limits. No dissection. There is no significant shift of the interventricular septum . PARTIALLY VISUALIZED UPPERMOST ABDOMEN: No obvious findings OSSEOUS: There are multiple sclerotic blastic osseous metastases at multiple thoracic vertebrae. The re is also some height loss of T9 vertebral body again noted, unchanged. Sternum is also again noted be involved. Also multiple ribs bilaterally. No new fractures identified. IMPRESSION: 1. No evidence of acute pulmonary emboli nor pulmonary infarction. However, there are areas of groun d-glass nodular infiltrate bilaterally as described above which were not evident on prior CT scan of October 2022. There are no pleural effusions. There is no intrathoracic adenopathy. 2. No evidence of aortic dissection nor pericardial effusion. 3. Multiple blastic metastases are noted in the thoracic spinal column, sternum, and rib cages. RADIATION DOSE DELIVERED: Total DLP DATA REPOSITORY: All CT scans at this facility are submitted to the National Radiology Data Registry (NRDR) Dose Index Registry (DIR) with the [employer] (ACR). RADIATION OPTIMIZATION: All CT scans at this facility use at least one of these dose optimization te chniques: automated exposure control; mA and/or kV adjustment per patient size (includes targeted exa ms where dose is matched to clinical indication); or iterative reconstruction.
[2023-09-24 12:01] LABS: COVID-19 PCR Negative (Negative); Influenza A PCR Negative (Negative); Influenza B PCR Negative (Negative); RSV PCR Negative (Negative)
[2023-09-24 12:03] LABS: Source Nasopharynx
[2023-09-24] MEDS: Amoxicillin 875/Clav. 125 TAB PO (13:55)
[2023-09-24] MEDS: Azithromycin 250 MG TAB 500 MG PO (13:55)
[2023-09-24] MEDS: Albuterol/Ipratropium 3 ML UPD VIAL UPD (13:55)
[2023-09-24] MEDS: Dexamethasone 10 MG/ML VIAL IVP (13:55)
[2023-09-24 14:52] LABS: Troponin I < 50 ng/L (<or=60)
== END 2023-09-24 15:06 | disposition home or self-care (01) ==
PROVIDERS: Emergency Provider Emergency Medicine
DX: J18.9 Pneumonia, unspecified organism (principal); C61 Malignant neoplasm of prostate; C79.51 Secondary malignant neoplasm of bone; I10 Essential (primary) hypertension; E78.5 Hyperlipidemia, unspecified; I25.118 Atherosclerotic heart disease of native coronary artery with other forms of angina pectoris; I48.0 Paroxysmal atrial fibrillation; R94.31 Abnormal electrocardiogram [ECG] [EKG]; Z79.85 Long-term (current) use of injectable non-insulin antidiabetic drugs; Z79.899 Other long term (current) drug therapy; Z86.73 Personal history of transient ischemic attack (TIA), and cerebral infarction without residual deficits; Z20.822 Contact with and (suspected) exposure to COVID-19
CPT/HCPCS: 36415; 71275; 80053; 82805; 87637; 93005; 96374; 99285; 83735; 83880; 84443; 84484; 85025; 85610; 85730; 93010; 99284; J1100; J7620

== ENCOUNTER 2023-09-29 04:05 | Outpatient (CLI) | payer MEDICARE, MEDICAID, SELFPAY ==
--- OUTSIDE RECORDS SUMMARY | 2023-09-29 04:09 | XMS_ITS | Continuity of Care Document ---
Author Name Unknown Organization [facility] Address [address] [place] [address] Care Team Providers Care Landing Worker Name Role Phone Primeau IPHCTurner Primary Care Phys[facility] [id number] Date(s): 06/11/23 - 06/11/[address] [address] Discharge Disposition: Home or Self Care Attending Physician: Adeline Beard MD Admitting Physician: Adeline Beard MD Referring Physician: Adeline Beard MD Allergies, Adverse Reactions, Alerts No Known Medication Allergies Medications ondansetron 4 mg oral tablet, disintegrating 4 mg = 1 tab, Oral, TID, # 15 cap, 0 Refill(s), Pharmacy: [facility] #[id number], cm, 07/05/22 7:46:00 EDT, Height/Length Dosing, 95.25, kg, 07/05/22 7:46:00 EDT, Weight Dosing Start Date: 07/05/22 Status: Ordered Tessalon Perles 100 mg oral capsule 100 mg = 1 cap, Oral, every 8 hr, PRN as needed for cough, # 30 cap, 0 Refill(s), Pharmacy: [facility] #[id number] 182.88, cm, 07/05/22 7:46:00 EDT, Height/Length Dosing, 95.25, kg, 07/05/22 7:46:00 EDT, Weight Dosing Start Date: 07/05/22 Status: Ordered Problem List Condition Confirmation Course Effective Dates Status Health St atus Informant Disease caused by 2019 novel coronavirus 1 Confirmed 07/05/22 Active 1Problem added by Rule (IC_COVID19_AUTO_PROBLEM) following SARS-CoV-2 (COVID- 19)/Flu/RSV (GeneXpert)from Nasal Swab collected on 05-JUL-2022 08:19:00 EDT tested positive for COVID-19. Social History Social History Type Response Tobacco Former tobacco user Tobacco Use:. 1 Sex Male 1Quit 25 yrs ago Patient Care team information Care Team Personnel Name: Ferny RAHMAN, Turner Stanley MD Position: No Access Member Role: Primary Care Physician Address: Address: [address] Care Team Related Persons Name: KIP CERVANTES Address: Home
--- OUTSIDE RECORDS SUMMARY | 2023-09-29 04:09 | XMS_ITS | Continuity of Care Document ---
Author Name Unknown Organization [facility] Address [address] [place] [address] Care Team Providers Care Alumina Plant Supervisor Name Role Phone Primeau HCTurner Primary Care Physician [facility] [id number] Date(s): 05/25/23 - 05/25/[address] [address] Discharge Disposition: Home or Self Care Attending Physician: Dali Masterson MD Admitting Physician: Dali Masterson MD Referring Physician: Dali Masterson MD Allergies, Adverse Reactions, Alerts No Known Medication Allergies Medications ondansetron 4 mg oral tablet, disintegrating 4 mg = 1 tab, Oral, TID, # 15 cap, 0 Refill(s), Pharmacy: [facility] #[id number], 182.88, cm, 07/05/22 7:46:00 EDT, Height/Length Dosing, 95.25, kg, 07/05/22 7:46:00 EDT, Weight Dosing Start Date: 07/05/22 Status: Ordered Tessalon Perles 100 mg oral capsule 100 mg = 1 cap, Oral, every 8 hr, PRN as needed for cough, # 30 cap, 0 Refill(s), Pharmacy: [facility] #58, 182.88, cm, 07/05/22 7:46:00 EDT, Height/Length Dosing, 95.25, kg, 07/05/22 7:46:00 EDT, Weight Dosing Start Date: 07/05/22 Status: Ordered Problem List Condition Confirmation Course Effective Dates Status Health St atus Informant Disease caused by 2019 novel coronavirus 1 Confirmed 8/28/22 Active 1Problem added by Rule (IC_COVID19_AUTO_PROBLEM) following [...] Member Role: Primary Care Physician Address: Address: [address] Care Team Related Persons Name: KIP CERVANTES Address: Home
--- OUTSIDE RECORDS SUMMARY | 2023-09-29 04:09 | XMS_ITS | Continuity of Care Document ---
Author Name Unknown Organization [facility] Address [address] [place] [address] Care Team Providers Care Business Information Manager Name Role Phone Primeau IPHCTurner Primary Care Physician [facility] [id number] Date(s): 06/14/23 - 06/14/[address] [phone] Discharge Disposition: Home or Self Care Attending Physician: Adeline Beard MD Admitting Physician: Adeline Beard MD Referring Physician: Adeline Beard MD Allergies, Adverse Reactions, Alerts No Known Medication Allergies Medications ondansetron 4 mg oral tablet, disintegrating 4 mg = 1 tab, Oral, TID, # 15 cap, 0 Refill(s), Pharmacy: [facility] #[id number] [phone], cm, 07/05/22 7:46:00 EDT, Height/Length Dosing, 95.25, kg, 07/05/22 7:46:00 EDT, Weight Dosing Start Date: 07/05/22 Status: Ordered Tessalon Perles 100 mg oral capsule 100 mg = 1 cap, Oral, every 8 hr, PRN as needed for cough, # 30 cap, 0 Refill(s), Pharmacy: [facility] #[id number] 182.88, cm, 07/05/22 7:46:00 EDT, Height/Length [...] Member Role: Primary Care Physician Address: Address: [address] Care Team Related Persons Name: KIP CERVANTES Address: Home
--- OUTSIDE RECORDS SUMMARY | 2023-09-29 04:09 | XMS_ITS | Continuity of Care Document ---
Author Name Unknown Organization [facility] Address [address] [place] [address] Care Team Providers Care Regional Account Executive Name Role Phone [facility] Physician [facility] [id number] Date(s): 10/06/22 - 10/06/[address] [address] Discharge Disposition: Home or Self Care Attending Physician: Lee Ann Duggan PHARMACY INTAKE TECHNICIAN Admitting Physician: Lee Ann Duggan PHARMACY INTAKE TECHNICIAN Referring Physician: Lee Ann Duggan PHARMACY INTAKE TECHNICIAN Allergies, Adverse Reactions, Alerts No Known Medication Allergies Medications ondansetron 4 mg oral tablet, disintegrating 4 mg = 1 tab, Oral, TID, # 15 cap, 0 Refill(s), Pharmacy: [facility] #[id number] [phone], cm, 07/05/22 7:46:00 EDT, Height/Length Dosing, 95.25, kg, 07/05/22 7:46:00 EDT, Weight Dosing Start Date: 07/05/22 Status: Ordered Tessalon Perles 100 mg oral capsule 100 mg = 1 cap, Oral, every 8 hr, PRN as needed for cough, # 30 cap, 0 Refill(s), Pharmacy: [email or web address] #[id number] [id number], cm, 07/05/22 7:46:00 EDT, Height/Length [...] 25 yrs ago Patient Care team information Personnel Name: Ferny ALICEA, Turner Stanley MD Address: Address: [id number] [place] [address]
--- OUTSIDE RECORDS SUMMARY | 2023-09-29 04:17 | XMS_ITS | Referral Summary ---
Author Name Unknown Organization [facility] is Address [address] [place] [address] Care Team Providers Care Vascular Ultrasound Technologist Name Role Phone Pcp, None Primary Care Physician Unavailab le Encounter 06/25/17 - 06/25/17 Ryan Hairston Randall [address] [facility] [place] [address] [place] Discharge Diagnosis: Urinary tract infection Discharge Diagnosis: Fever Discharge Diagnosis: Medication reaction Discharge Diagnosis: Nausea Discharge Disposition: H Outpt-Sent Home Attending Physician: ALEJO GARCIA Admitting Physician: ALJEO GARCIA Referring Physician: Pcp, None Vital Signs Most recent to oldest [Reference Range]: 1 2 Temperature Oral [35.8-37.3 degC] 37.2 d egC (06/25/17 7:16 PM) 38.9 degC *HI* (06/25/17 5:52 PM) Heart Rate Monitored [60-100 bpm] 72 bpm (06/25/17 9:46 PM) 79 bpm (06/25/17 8:50 PM) Respiratory Rate [12-20 br/min] 17 br/mi n (06/25/17 9:46 PM) 17 br/min (06/25/17 8:50 PM) Blood Pressure [90-140/60-90 mmHg] 124/6 6mmHg (06/25/17 9:46 PM) 124/66mmHg (06/25/17 8:50 PM) Problem List Condition Effective Dates Status Health Status Inform ant Angina(Confirmed) Active CAD(Confirmed) Active Allergies, Adverse Reactions, Alerts Substance Reaction Severity Status No Known Allergies Active Medications No Known Medications Results WBC Most recent to oldest [Reference Range]: 1 WBC [3.8-10.6 x10e3/mcL] 7.5 x10e3/mcL (06/25/17 6:23 PM) Hgb Most recent to oldest [Reference Range]: 1 Hgb [13.0-17.3 g/dL] 13.5 g/dL (06/25/17 6:23 PM) Hct Most recent to oldest [Reference Range]: 1 HCT [38.0-52.0 %] 39.2 % (06/25/17 6:23 PM) Platelet Count Most recent to oldest [Reference Range]: 1 Platelet [140-440 x10e3/mcL] 172 x10e3/m cL (06/25/17 6:23 PM) Sodium Lvl Most recent to oldest [Reference Range]: 1 Sodium Lvl [135-145 mmol/L] 133 mmol/L *LOW* (06/25/17 6:23 PM) Potassium Lvl Most recent to oldest [Reference Range]: 1 Potassium Lvl [3.5-5.1 mmol/L] 4.4 mmol/ L (06/25/17 6:23 PM) CO2 Most recent to oldest [Reference Range]: 1 CO2 [22-29 mmol/L] 24 mmol/L (06/25/17 6:23 PM) Chloride Most recent to oldest [Reference Range]: 1 Chloride [98-107 mmol/L] 93 mmol/L *LOW* (06/25/17 6:23 PM) Anion Gap Most recent to oldest [Reference Range]: 1 AGAP [2-17 mmol/L] 16 mmol/L (06/25/17 6:23 PM) BUN Most recent to oldest [Reference Range]: 1 BUN [8-23 mg/dL] 14 mg/dL (06/25/17 6:23 PM) CREATININE Most recent to oldest [Reference Range]: 1 Creatinine Lvl [0.7-1.3 mg/dL] 1.0 mg/dL (06/25/17 6:23 PM) Calcium Lvl Most recent to oldest [Reference Range]: 1 Calcium Lvl [8.8-10.2 mg/dL] 8.5 mg/dL *LOW* (06/25/17 6:23 PM) Albumin Lvl Most recent to oldest [Reference Range]: 1 Albumin Lvl [3.5-5.2 g/dL] 3.7 g/dL (06/25/17 6:23 PM) Total Protein Most recent to oldest [Reference Range]: 1 Protein Total [6.4-8.3 g/dL] 6.6 g/dL (06/25/17 6:23 PM) Alk Phos Most recent to oldest [Reference Range]: 1 Alk Phos [40-130 unit/L] 170 unit/L *HI* (06/25/17 6:23 PM) AST Most recent to oldest [Reference Range]: 1 AST [0-40 unit/L] 37 unit/L (06/25/17 6:23 PM) ALT Most recent to oldest [Reference Range]: 1 ALT [0-41 unit/L] 24 unit/L (06/25/17 6:23 PM) Bilirubin Total Most recent to oldest [Reference Range]: 1 Bili Total [0.00-1.20 mg/dL] 0.70 mg/dL (06/25/17 6:23 PM) UA Macroscopic Most recent to oldest [Reference Range]: 1 UA Color STRAW *NA* (06/25/17 8:49 PM) UA Appear CLEAR *NA* (06/25/17 8:49 PM) UA Glucose NEGATIVE *NA* (06/25/17 8:49 PM) UA Bili NEGATIVE *NA* (06/25/17 8:49 PM) UA Ketones 2+ *NA* (06/25/17 8:49 PM) UA Spec Grav [1.003 - 1.035-1.035] 1.010 (06/25/17 8:49 PM) UA Blood 1+ *NA* (06/25/17 8:49 PM) UA pH [4.5 - 8.0-8.0] 7.0 (06/25/17 8:49 PM) Protein U TRACE *NA* (06/25/17 8:49 PM) UA Urobilinogen [1.0 EU/dL] 0.2 EU/dL (06/25/17 8:49 PM) UA Nitrite NEGATIVE *NA* (06/25/17 8:49 PM) UA Leuk Est NEGATIVE *NA* (06/25/17 8:49 PM) UA Microscopic Most recent to oldest [Reference Range]: 1 RBC U [0-2 /HPF] 3-5 /HPF *ABN* (06/25/17 8:49 PM) Sq Epi U [Rare /LPF] Rare /LPF (06/25/17 8:49 PM) Social History Social History Type Response Smoking Status Never smoker Functional Status COGNITIVE 06/25/17 Orientation Assessment Oriented x 4 Hospital Discharge Instructions Patient Education 06/25/2017 17:29:51 Fever, Adult Fever, Adult A fever is an increase in the body's temperature. It is usually defined as a temperature of 100??F (38??C) or higher. Brief mild or moderate fevers generally have no long-term effects, and they oftendo not require treatment. Moderate or high fevers may make you feel uncomfortable and can sometimesbe a sign of a serious illness or disease. The sweating that may occur with repeated or prolonged fever may also cause dehydration. Fever is confirmed by taking a temperature with a thermometer. A measured temperature can vary with: ??? Age. ??? Time of day. ??? Location of the thermometer: ? Mouth (oral). ? Rectum (rectal). ? Ear (tympanic). ? Underarm (axillary). ? Forehead (temporal). HOME CARE INSTRUCTIONS Pay attention to any changes in your symptoms. Take these actions to help with your condition: ??? Take over-the counter and prescription medicines only as told by your health care provider. Follow the dosing instructions carefully. ??? If you were prescribed an antibiotic medicine, take it as told by your health care provider. Donot stop taking the antibiotic even if you start to feel better. ??? Rest as needed. ??? Drink enough fluid to keep your urine clear or pale yellow. This helps to prevent dehydration. ??? Sponge yourself or bathe with room-temperature water to help reduce your body temperature as needed. Do not use ice water. ??? Do not overbundle yourself in blankets or heavy clothes. SEEK MEDICAL CARE IF: ??? You vomit. ??? You cannot eat or drink without vomiting. ??? You have diarrhea. ??? You have pain when you urinate. ??? Your symptoms do not improve with treatment. ??? You develop new symptoms. ??? You develop excessive weakness. SEEK IMMEDIATE MEDICAL CARE IF: ??? You have shortness of breath or have trouble breathing. ??? You are dizzy or you faint. ??? You are disoriented or confused. ??? You develop signs of dehydration, such as a dry mouth, decreased urination, or paleness. ??? You develop severe pain in your abdomen. ??? You have persistent vomiting or diarrhea. ??? You develop a skin rash. ??? Your symptoms suddenly get worse. This information is not intended to replace advice given to you by your health care provider. Make sure you discuss any questions you have with your health care provider. Document Released: 04/20/2002 Document Revised: 07/15/2016 Document Reviewed: 12/19/2015 [employer] Interactive Patient Education ??2016 [employer]. Nausea, Adult Nausea, Adult Nausea is the feeling that you have an upset stomach or have to vomit. Nausea by itself is not likely a serious concern, but it may be an early sign of more serious medical problems. As nausea gets worse, it can lead to vomiting. If vomiting develops, there is the risk of dehydration. CAUSES ??? Viral infections. ??? Food poisoning. ??? Medicines. ??? . ??? Motion sickness. ??? Migraine headaches. ??? Emotional distress. ??? Severe pain from any source. ??? Alcohol intoxication. HOME CARE INSTRUCTIONS ??? Get plenty of rest. ??? Ask your caregiver about specific rehydration instructions. ??? Eat small amounts of food and sip liquids more often. ??? Take all medicines as told by your caregiver. SEEK MEDICAL CARE IF: ??? You have not improved after 2 days, or you get worse. ??? You have a headache. SEEK IMMEDIATE MEDICAL CARE IF: ??? You have a fever. ??? You faint. ??? You keep vomiting or have blood in your vomit. ??? You are extremely weak or dehydrated. ??? You have dark or bloody stools. ??? You have severe chest or abdominal pain. MAKE SURE YOU: ??? Understand these instructions. ??? Will watch your condition. ??? Will get help right away if you are not doing well or get worse. This information is not intended to replace advice given to you by your health care provider. Make sure you discuss any questions you have with your health care provider. Document Released: 12/02/2005 Document Revised: 11/15/2015 Document Reviewed: 06/30/2016 [employer] Interactive Patient Education ??2016 [employer] Urinary Tract Infection, Adult Urinary Tract Infection Urinary tract infections (UTIs) can develop anywhere along your urinary tract. Your urinary tract is your body's drainage system for removing wastes and extra water. Your urinary tract includes two kidneys, two ureters, a bladder, and a urethra. Your kidneys are a pair of best-shaped organs. Each kidney is about the size of your fist. They are located below your ribs, one on each side of your spine. CAUSES Infections are caused by microbes, which are microscopic organisms, including fungi, viruses, and bacteria. These organisms are so small that they can only be seen through a microscope. Bacteria are the microbes that most commonly cause UTIs. SYMPTOMS Symptoms of UTIs may vary by age and gender of the patient and by the location of the infection. Symptoms in young women typically include a frequent and intense urge to urinate and a painful, burning feeling in the bladder or urethra during urination. Older women and men are more likely to be tired, shaky, and weak and have muscle aches and abdominal pain. A fever may mean the infection is in your kidneys. Other symptoms of a kidney infection include pain in your back or sides below the ribs, nausea, and vomiting. DIAGNOSIS To diagnose a UTI, your caregiver will ask you about your symptoms. Your caregiver will also ask you to provide a urine sample. The urine sample will be tested for bacteria and white blood cells. White blood cells are made by your body to help fight infection. TREATMENT Typically, UTIs can be treated with medication. Because most UTIs are caused by a bacterial infection, they usually can be treated with the use of antibiotics. The choice of antibiotic and length of treatment depend on your symptoms and the type of bacteria causing your infection. HOME CARE INSTRUCTIONS ??? If you were prescribed antibiotics, take them exactly as your caregiver instructs you. Finish the medication even if you feel better after you have only taken some of the medication. ??? Drink enough water and fluids to keep your urine clear or pale yellow. ??? Avoid caffeine, tea, and carbonated beverages. They tend to irritate your bladder. ??? Empty your bladder often. Avoid holding urine for long periods of time. ??? Empty your bladder before and after sexual intercourse. ??? After a bowel movement, women should cleanse from front to back. Use each tissue only once. SEEK MEDICAL CARE IF: ??? You have back pain. ??? You develop a fever. ??? Your symptoms do not begin to resolve within 3 days. SEEK IMMEDIATE MEDICAL CARE IF: ??? You have severe back pain or lower abdominal pain. ??? You develop chills. ??? You have nausea or vomiting. ??? You have continued burning or discomfort with urination. MAKE SURE YOU: ??? Understand these instructions. ??? Will watch your condition. ??? Will get help right away if you are not doing well or get worse. This information is not intended to replace advice given to you by your health care provider. Make sure you discuss any questions you have with your health care provider. Document Released: 08/04/2006 Document Revised: 07/15/2016 Document Reviewed: 09/14/2016 [employer] Interactive Patient Education ??2016 [employer] Follow Up Care 06/25/2017 17:29:51 With:Follow up with primary care provider Address:Unknown When:1 week Comments:Return to ED if symptoms worsen
[2023-09-29 12:11] LABS: Abs Immature Grans 0.05 10^3/uL (0.0-0.06); Absolute Basophil Count 0.02 10^3/uL (0.0-0.2); Absolute Eosinophil Count 0.03 10^3/uL (0.0-0.7); Absolute Lymphocyte Count 0.54 10^3/uL (1.2-3.4); Absolute Monocyte Count 0.21 10^3/uL (0.1-0.8); Absolute Neutrophil Count 3.84 10^3/uL (1.2-6.7); Basophils % 0.4; Eosinophils % 0.6; HCT 32.3 % (40.0-50.0); HGB 10.6 g/dL (13.5-17.5); Immature Grans % 1.1; Lymphocytes % 11.5; MCH 28.3 pg (27.0-33.0); MCHC 32.8 % (32.0-36.0); MCV 86 fL (80-95); MPV 9.6 fL (8.0-11.0); Monocytes % 4.5; Neutrophils % 81.9; Platelet Count 179 10^3/uL (130-400); RBC 3.75 10^6/uL (4.36-5.78); RDW 14.6 % (11.8-14.1); RDW-SD 45.1 fL; WBC 4.69 10^3/uL (4.4-10.8)
[2023-09-29 12:29] LABS: ALT 24 U/L (16-63); AST 102 U/L (15-37); Albumin 3.6 g/dL (3.4-5.0); Anion Gap 11.8 mmol/L (3-11); BUN 20 mg/dL (7-18); Bilirubin, Total 0.5 mg/dL (0.2-1.0); CO2 22.2 mmol/L (21.0-32.0); Calcium 9.6 mg/dL (8.5-10.1); Chloride 104 mmol/L (98-107); Estimated GFR 77.52 (mL/min/1.73m2); Glucose 132 mg/dL (74-106); Potassium 3.8 mmol/L (3.5-5.1); Sodium 138 mmol/L (136-145); Total Protein 7.6 g/dL (6.4-8.2)
[2023-09-29 12:32] LABS: Alkaline Phosphatase 1699 U/L (46-116)
[2023-10-01 20:23] LABS: PSA, Ultrasensitive 290 ng/mL (<= 6.5)
[2023-10-03 16:52] LABS: Testosterone, Total <7.0 ng/dL (240-950)
== END 2023-09-29 04:06 | disposition home or self-care (01) ==
LOC: LOS 04:08
PROVIDERS: Visit Provider Internal Medicine
DX: C79.51 Secondary malignant neoplasm of bone (principal)
CPT/HCPCS: 36415; 80053; 84153; 84403; 85025

== ENCOUNTER 2023-11-02 16:47 | Outpatient (CLI) | payer MEDICARE, MEDICAID, SELFPAY ==
[2023-11-02 15:41] LABS: Abs Immature Grans 0.07 10^3/uL (0.0-0.06); Absolute Basophil Count 0.03 10^3/uL (0.0-0.2); Absolute Eosinophil Count 0.05 10^3/uL (0.0-0.7); Absolute Lymphocyte Count 0.93 10^3/uL (1.2-3.4); Absolute Monocyte Count 0.27 10^3/uL (0.1-0.8); Absolute Neutrophil Count 2.11 10^3/uL (1.2-6.7); Basophils % 0.9; Eosinophils % 1.4; HCT 26.8 % (40.0-50.0); HGB 8.1 g/dL (13.5-17.5); Lymphocytes % 26.9; MCH 27.9 pg (27.0-33.0); MCHC 30.2 % (32.0-36.0); MCV 92 fL (80-95); MPV 8.6 fL (8.0-11.0); Monocytes % 7.8; Platelet Count 137 10^3/uL (130-400); RDW 18.1 % (11.8-14.1); RDW-SD 59.7 fL; WBC 3.46 10^3/uL (4.4-10.8)
[2023-11-02 16:05] LABS: ALT 16 U/L (16-63); AST 61 U/L (15-37); Albumin 2.9 g/dL (3.4-5.0); Anion Gap 9.3 mmol/L (3-11); BUN 16 mg/dL (7-18); Bilirubin, Total 0.5 mg/dL (0.2-1.0); CO2 23.7 mmol/L (21.0-32.0); CREATININE 0.9 mg/dL (0.70-1.30); Calcium 8.7 mg/dL (8.5-10.1); Chloride 105 mmol/L (98-107); Estimated GFR 87.96 (mL/min/1.73m2); Glucose 118 mg/dL (74-106); Potassium 3.7 mmol/L (3.5-5.1); Sodium 138 mmol/L (136-145); Total Protein 6.9 g/dL (6.4-8.2)
[2023-11-02 16:41] LABS: Anisocytosis 1+; Diff Comment RBC Morph Reviewed; Polychromasia Present
[2023-11-02 17:02] LABS: Alkaline Phosphatase 2668 U/L (46-116)
[2023-11-04 15:53] LABS: PSA, Ultrasensitive 224 ng/mL (<= 6.5)
[2023-11-09 10:21] LABS: Testosterone, Total <7.0 ng/dL (240-950)
== END 2023-11-02 16:48 | disposition home or self-care (01) ==
LOC: LBO 16:48
PROVIDERS: PCP Internal Medicine; Visit Provider Internal Medicine
DX: C61 Malignant neoplasm of prostate (principal)
CPT/HCPCS: 36415; 80053; 84153; 84403; 85025

== ENCOUNTER 2023-12-09 17:28 | Outpatient (REF) | payer MEDICARE, MEDICAID, SELFPAY ==
[2023-12-09 18:53] LABS: HGB 9.9 g/dL (13.5-17.5); MCH 29.1 pg (27.0-33.0); MCV 88 fL (80-95); MPV 9.2 fL (8.0-11.0); Platelet Count 220 10^3/uL (130-400); RDW-SD 54.9 fL; WBC 7.05 10^3/uL (4.4-10.8)
[2023-12-09 19:00] LABS: Potassium 3.5 mmol/L (3.5-5.1)
[2023-12-13 12:54] LABS: PSA, Diagnostic 566.5 ng/mL (<=6.5)
== END 2023-12-09 17:29 | disposition home or self-care (01) ==
LOC: NCHCN 17:28
PROVIDERS: PCP Internal Medicine; Visit Provider Internal Medicine
DX: C61 Malignant neoplasm of prostate (principal)
CPT/HCPCS: 85027; 84132; 84153

== ENCOUNTER 2023-12-14 11:20 | Outpatient (CLI) | payer MEDICARE, MEDICAID, SELFPAY ==
[2023-12-14 09:03] LABS: Abs Immature Grans 0.02 10^3/uL (0.0-0.06); Absolute Basophil Count 0.02 10^3/uL (0.0-0.2); Absolute Eosinophil Count 0.09 10^3/uL (0.0-0.7); Absolute Lymphocyte Count 0.41 10^3/uL (1.2-3.4); Absolute Monocyte Count 0.35 10^3/uL (0.1-0.8); Absolute Neutrophil Count 4.11 10^3/uL (1.2-6.7); Basophils % 0.4; Eosinophils % 1.8; HCT 28.8 % (40.0-50.0); HGB 9.5 g/dL (13.5-17.5); Immature Grans % 0.4; Lymphocytes % 8.2; MCH 29.9 pg (27.0-33.0); MCV 91 fL (80-95); MPV 8.1 fL (8.0-11.0); Neutrophils % 82.2; Platelet Count 138 10^3/uL (130-400); RBC 3.18 10^6/uL (4.36-5.78); RDW 17.2 % (11.8-14.1); RDW-SD 57.5 fL
[2023-12-14 09:28] LABS: ALT 27 U/L (16-63); AST 37 U/L (15-37); Albumin 2.7 g/dL (3.4-5.0); Anion Gap 6.2 mmol/L (3-11); BUN 17 mg/dL (7-18); Bilirubin, Total 1.1 mg/dL (0.2-1.0); CO2 29.8 mmol/L (21.0-32.0); Calcium 8.3 mg/dL (8.5-10.1); Chloride 94 mmol/L (98-107); Estimated GFR 77.52 (mL/min/1.73m2); Glucose 141 mg/dL (74-106); Potassium 3.3 mmol/L (3.5-5.1); Sodium 130 mmol/L (136-145); Total Protein 5.9 g/dL (6.4-8.2)
[2023-12-14 09:33] LABS: Alkaline Phosphatase 3744 U/L (46-116)
[2023-12-18 08:30] LABS: Testosterone, Total 11 ng/dL (240-950)
[2023-12-21 09:49] LABS: PSA, Ultrasensitive 584 ng/mL (<= 6.5)
== END 2023-12-14 11:21 | disposition home or self-care (01) ==
LOC: LBO 11:21
PROVIDERS: PCP Internal Medicine; Visit Provider Internal Medicine
DX: C61 Malignant neoplasm of prostate (principal); C79.51 Secondary malignant neoplasm of bone
CPT/HCPCS: 36415; 80053; 84153; 84403; 85025

== ENCOUNTER 2024-01-04 03:33 | Outpatient (CLI) | payer MEDICARE, MEDICAID, SELFPAY ==
[2024-01-04 09:21] LABS: Abs Immature Grans 0.09 10^3/uL (0.0-0.06); Absolute Basophil Count 0.05 10^3/uL (0.0-0.2); Absolute Eosinophil Count 0.01 10^3/uL (0.0-0.7); Absolute Lymphocyte Count 1.01 10^3/uL (1.2-3.4); Absolute Monocyte Count 0.56 10^3/uL (0.1-0.8); Basophils % 0.8; Eosinophils % 0.2; HCT 29.8 % (40.0-50.0); HGB 9.3 g/dL (13.5-17.5); Immature Grans % 1.5; Lymphocytes % 16.5; MCH 29.2 pg (27.0-33.0); MCHC 31.2 % (32.0-36.0); MCV 93 fL (80-95); MPV 8.6 fL (8.0-11.0); Monocytes % 9.2; Neutrophils % 71.8; Platelet Count 180 10^3/uL (130-400); RBC 3.19 10^6/uL (4.36-5.78); RDW 17.2 % (11.8-14.1); RDW-SD 59.1 fL; WBC 6.12 10^3/uL (4.4-10.8)
[2024-01-04 09:48] LABS: ALT 13 U/L (16-63); AST 21 U/L (15-37); Albumin 2.5 g/dL (3.4-5.0); Alkaline Phosphatase 1746 U/L (46-116); Anion Gap 7.8 mmol/L (3-11); BUN 15 mg/dL (7-18); Bilirubin, Total 0.5 mg/dL (0.2-1.0); CO2 27.2 mmol/L (21.0-32.0); CREATININE 0.9 mg/dL (0.70-1.30); Calcium 8.1 mg/dL (8.5-10.1); Chloride 102 mmol/L (98-107); Estimated GFR 87.96 (mL/min/1.73m2); Glucose 104 mg/dL (74-106); Potassium 4.1 mmol/L (3.5-5.1); Sodium 137 mmol/L (136-145); Total Protein 5.9 g/dL (6.4-8.2)
[2024-01-05 20:46] LABS: PSA, Ultrasensitive 477 ng/mL (<= 6.5)
[2024-01-08 03:12] LABS: Testosterone, Total <7.0 ng/dL (240-950)
== END 2024-01-04 03:34 | disposition home or self-care (01) ==
LOC: LBO 03:33
PROVIDERS: PCP Internal Medicine; Visit Provider Internal Medicine
DX: C79.51 Secondary malignant neoplasm of bone (principal); C61 Malignant neoplasm of prostate
CPT/HCPCS: 36415; 80053; 84153; 84403; 85025

== ENCOUNTER 2024-01-25 04:40 | Outpatient (CLI) | payer MEDICARE, MEDICAID, SELFPAY ==
[2024-01-25 09:54] LABS: Abs Immature Grans 0.09 10^3/uL (0.0-0.06); Absolute Basophil Count 0.06 10^3/uL (0.0-0.2); Absolute Eosinophil Count 0.04 10^3/uL (0.0-0.7); Absolute Lymphocyte Count 0.82 10^3/uL (1.2-3.4); Absolute Monocyte Count 0.67 10^3/uL (0.1-0.8); Absolute Neutrophil Count 5.87 10^3/uL (1.2-6.7); Basophils % 0.8; Eosinophils % 0.5; HGB 7.8 g/dL (13.5-17.5); Immature Grans % 1.2; Lymphocytes % 10.9; MCH 29.4 pg (27.0-33.0); MCHC 31.2 % (32.0-36.0); MCV 94 fL (80-95); MPV 8.4 fL (8.0-11.0); Monocytes % 8.9; Neutrophils % 77.7; Platelet Count 220 10^3/uL (130-400); RBC 2.65 10^6/uL (4.36-5.78); RDW 16.8 % (11.8-14.1); RDW-SD 57.3 fL; WBC 7.55 10^3/uL (4.4-10.8)
[2024-01-25 10:18] LABS: ALT 14 U/L (16-63); AST 22 U/L (15-37); Albumin 2.5 g/dL (3.4-5.0); Alkaline Phosphatase 1139 U/L (46-116); Anion Gap 9.7 mmol/L (3-11); BUN 20 mg/dL (7-18); Bilirubin, Total 0.5 mg/dL (0.2-1.0); CO2 29.3 mmol/L (21.0-32.0); CREATININE 1.1 mg/dL (0.70-1.30); Calcium 8.5 mg/dL (8.5-10.1); Chloride 98 mmol/L (98-107); Estimated GFR 69.14 (mL/min/1.73m2); Glucose 119 mg/dL (74-106); Potassium 4.4 mmol/L (3.5-5.1); Sodium 137 mmol/L (136-145); Total Protein 6.1 g/dL (6.4-8.2)
[2024-01-27 11:55] LABS: PSA, Ultrasensitive 648 ng/mL (<= 6.5)
[2024-01-30 17:40] LABS: Testosterone, Total <7.0 ng/dL (240-950)
== END 2024-01-25 04:41 | disposition home or self-care (01) ==
LOC: LBO 04:40
PROVIDERS: PCP Internal Medicine; Visit Provider Internal Medicine
DX: C61 Malignant neoplasm of prostate (principal)
CPT/HCPCS: 36415; 80053; 84153; 84403; 85025

== ENCOUNTER 2024-02-02 16:02 | Outpatient (CLI) | payer MEDICARE, MEDICAID, SELFPAY ==
[2024-02-02 10:14] LABS: HGB 9.9 g/dL (13.5-17.5); MCH 29.7 pg (27.0-33.0); MCV 90 fL (80-95); MPV 9.2 fL (8.0-11.0); Platelet Count 158 10^3/uL (130-400); RBC 3.33 10^6/uL (4.36-5.78); RDW-SD 52.7 fL; WBC 13.66 10^3/uL (4.4-10.8)
[2024-02-02 10:51] LABS: ALT 14 U/L (16-63); AST 24 U/L (15-37); Albumin 2.7 g/dL (3.4-5.0); Alkaline Phosphatase 986 U/L (46-116); BUN 28 mg/dL (7-18); Bilirubin, Total 0.5 mg/dL (0.2-1.0); CREATININE 1.2 mg/dL (0.70-1.30); Calcium 8.5 mg/dL (8.5-10.1); Chloride 98 mmol/L (98-107); Estimated GFR 62.29 (mL/min/1.73m2); Glucose 115 mg/dL (74-106); Potassium 4.1 mmol/L (3.5-5.1); Sodium 131 mmol/L (136-145); Total Protein 6.4 g/dL (6.4-8.2)
[2024-02-02 11:08] LABS: Absolute Lymphocyte Count 1.37 10^3/uL (1.2-3.4); Absolute Neutrophil Count 9.84 10^3/uL (1.2-6.7); Bands % 6
[2024-02-02 11:09] LABS: Absolute Basophil Count 0.14 10^3/uL (0.0-0.2); Absolute Eosinophil Count 0.14 10^3/uL (0.0-0.7); Absolute Monocyte Count 1.09 10^3/uL (0.1-0.8); Metamyelocytes % 5; Myelocytes % 3
[2024-02-02 11:10] LABS: Diff Comment Manual Differential; RBC Morphology Normal
[2024-02-04 12:35] LABS: PSA, Ultrasensitive 577 ng/mL (<= 6.5)
[2024-02-07 13:09] LABS: Testosterone, Total <7.0 ng/dL (240-950)
== END 2024-02-02 16:03 | disposition home or self-care (01) ==
LOC: LBO 16:03
PROVIDERS: PCP Internal Medicine; Visit Provider Internal Medicine
DX: C79.51 Secondary malignant neoplasm of bone (principal)
CPT/HCPCS: 36415; 80053; 84153; 84403; 85025

== ENCOUNTER 2024-02-15 10:53 | Outpatient (CLI) | payer MEDICARE, MEDICAID, SELFPAY ==
[2024-02-15 11:01] LABS: Absolute Basophil Count 0.05 10^3/uL (0.0-0.2); Absolute Lymphocyte Count 1.68 10^3/uL (1.2-3.4); Absolute Monocyte Count 0.71 10^3/uL (0.1-0.8); Absolute Neutrophil Count 6.14 10^3/uL (1.2-6.7); Basophils % 0.6; HCT 28.2 % (40.0-50.0); HGB 9.2 g/dL (13.5-17.5); Immature Grans % 1.2; Lymphocytes % 19.4; MCH 30.1 pg (27.0-33.0); MCHC 32.6 % (32.0-36.0); MCV 92 fL (80-95); MPV 8.1 fL (8.0-11.0); Monocytes % 8.2; Neutrophils % 70.6; Platelet Count 197 10^3/uL (130-400); RBC 3.06 10^6/uL (4.36-5.78); RDW 16.7 % (11.8-14.1); RDW-SD 55.5 fL; WBC 8.68 10^3/uL (4.4-10.8)
[2024-02-15 11:24] LABS: ALT 15 U/L (16-63); AST 22 U/L (15-37); Alkaline Phosphatase 1342 U/L (46-116); Anion Gap 10.7 mmol/L (3-11); BUN 15 mg/dL (7-18); Bilirubin, Total 0.5 mg/dL (0.2-1.0); CO2 24.3 mmol/L (21.0-32.0); CREATININE 1.1 mg/dL (0.70-1.30); Calcium 8.2 mg/dL (8.5-10.1); Chloride 98 mmol/L (98-107); Estimated GFR 69.14 (mL/min/1.73m2); Glucose 149 mg/dL (74-106); Potassium 3.6 mmol/L (3.5-5.1); Sodium 133 mmol/L (136-145); Total Protein 6.4 g/dL (6.4-8.2)
[2024-02-17 14:09] LABS: PSA, Ultrasensitive 441 ng/mL (<= 6.5)
[2024-02-18 16:06] LABS: Testosterone, Total <7.0 ng/dL (240-950)
== END 2024-02-15 10:54 | disposition home or self-care (01) ==
LOC: LBO 10:53
PROVIDERS: PCP Internal Medicine; Visit Provider Internal Medicine
DX: C79.51 Secondary malignant neoplasm of bone (principal); C61 Malignant neoplasm of prostate
CPT/HCPCS: 36415; 80053; 84153; 84403; 85025

== ENCOUNTER 2024-03-01 05:09 | Outpatient (CLI) | payer MEDICARE, MEDICAID, SELFPAY ==
[2024-03-01 09:42] LABS: Abs Immature Grans 0.14 10^3/uL (0.0-0.06); Absolute Basophil Count 0.04 10^3/uL (0.0-0.2); Absolute Eosinophil Count 0.04 10^3/uL (0.0-0.7); Absolute Lymphocyte Count 1.03 10^3/uL (1.2-3.4); Absolute Monocyte Count 0.51 10^3/uL (0.1-0.8); Absolute Neutrophil Count 7.87 10^3/uL (1.2-6.7); Basophils % 0.4; Eosinophils % 0.4; HCT 27.8 % (40.0-50.0); HGB 9.2 g/dL (13.5-17.5); Immature Grans % 1.5; Lymphocytes % 10.7; MCH 31.1 pg (27.0-33.0); MCHC 33.1 % (32.0-36.0); MCV 94 fL (80-95); MPV 9.1 fL (8.0-11.0); Monocytes % 5.3; Neutrophils % 81.7; Platelet Count 158 10^3/uL (130-400); RBC 2.96 10^6/uL (4.36-5.78); RDW 16.9 % (11.8-14.1); RDW-SD 57.6 fL; WBC 9.63 10^3/uL (4.4-10.8)
[2024-03-01 10:27] LABS: ALT 15 U/L (16-63); AST 18 U/L (15-37); Albumin 2.9 g/dL (3.4-5.0); Alkaline Phosphatase 846 U/L (46-116); Anion Gap 9.7 mmol/L (3-11); BUN 22 mg/dL (7-18); Bilirubin, Total 0.5 mg/dL (0.2-1.0); CO2 27.3 mmol/L (21.0-32.0); CREATININE 1.1 mg/dL (0.70-1.30); Calcium 8.1 mg/dL (8.5-10.1); Chloride 100 mmol/L (98-107); Estimated GFR 69.14 (mL/min/1.73m2); Glucose 106 mg/dL (74-106); Potassium 4.2 mmol/L (3.5-5.1); Sodium 137 mmol/L (136-145); Total Protein 5.9 g/dL (6.4-8.2)
[2024-03-02 19:18] LABS: PSA, Ultrasensitive 325 ng/mL (<= 6.5)
[2024-03-04 16:18] LABS: Testosterone, Total <7.0 ng/dL (240-950)
== END 2024-03-01 05:10 | disposition home or self-care (01) ==
LOC: LBO 05:10
PROVIDERS: PCP Internal Medicine; Visit Provider Internal Medicine
DX: C79.51 Secondary malignant neoplasm of bone (principal); C61 Malignant neoplasm of prostate
CPT/HCPCS: 36415; 80053; 84153; 84403; 85025

== ENCOUNTER 2024-03-22 05:11 | Outpatient (CLI) | payer MEDICARE, MEDICAID, SELFPAY ==
[2024-03-22 13:27] LABS: Abs Immature Grans 0.11 10^3/uL (0.0-0.06); Absolute Basophil Count 0.04 10^3/uL (0.0-0.2); Absolute Eosinophil Count 0.04 10^3/uL (0.0-0.7); Absolute Lymphocyte Count 1.06 10^3/uL (1.2-3.4); Absolute Monocyte Count 0.65 10^3/uL (0.1-0.8); Absolute Neutrophil Count 9.85 10^3/uL (1.2-6.7); Basophils % 0.3 %; Eosinophils % 0.3 %; HCT 32.2 % (40.0-50.0); HGB 10.2 g/dL (13.5-17.5); Immature Grans % 0.9 %; MCHC 31.7 % (32.0-36.0); MCV 98 fL (80-95); MPV 8.5 fL (8.0-11.0); Monocytes % 5.5 %; Platelet Count 145 10^3/uL (130-400); RBC 3.29 10^6/uL (4.36-5.78); RDW-SD 63.5 fL; WBC 11.73 10^3/uL (4.4-10.8)
[2024-03-22 13:43] LABS: ALT 21 U/L (16-63); AST 22 U/L (15-37); Albumin 3.2 g/dL (3.4-5.0); Alkaline Phosphatase 801 U/L (46-116); Anion Gap 11.1 mmol/L (3-11); BUN 24 mg/dL (7-18); Bilirubin, Total 0.5 mg/dL (0.2-1.0); CO2 27.9 mmol/L (21.0-32.0); CREATININE 1.2 mg/dL (0.70-1.30); Calcium 8.4 mg/dL (8.5-10.1); Chloride 103 mmol/L (98-107); Estimated GFR 62.29 (mL/min/1.73m2); Glucose 149 mg/dL (74-106); Potassium 3.9 mmol/L (3.5-5.1); Sodium 142 mmol/L (136-145)
[2024-03-24 11:42] LABS: PSA, Ultrasensitive 232 ng/mL (<= 6.5)
[2024-03-26 09:56] LABS: Testosterone, Total <7.0 ng/dL (240-950)
== END 2024-03-22 05:12 | disposition home or self-care (01) ==
LOC: LBO 05:11
PROVIDERS: PCP Internal Medicine; Visit Provider Internal Medicine
DX: C61 Malignant neoplasm of prostate (principal); C79.51 Secondary malignant neoplasm of bone
CPT/HCPCS: 36415; 80053; 84153; 84403; 85025

== ENCOUNTER → 2024-05-04 07:55 | Outpatient (BNVA) | payer MEDICARE, MEDICAID, SELFPAY | PROVIDERS: PCP Internal Medicine; Referring Provider Internal Medicine; Visit Provider Podiatrist | DX: L84 Corns and callosities (principal); M20.41 Other hammer toe(s) (acquired), right foot; M79.671 Pain in right foot; C61 Malignant neoplasm of prostate; G62.0 Drug-induced polyneuropathy; T45.1X5A Adverse effect of antineoplastic and immunosuppressive drugs, initial encounter; C79.51 Secondary malignant neoplasm of bone | CPT/HCPCS: 99214 ==

== ENCOUNTER → 2024-05-15 02:32 | Outpatient (CLI) | payer MEDICARE, MEDICAID, SELFPAY ==
--- NOTE | 2024-05-15 10:45 | DI.RAD_ITS ---
Exam(s) XR FOOT RT COMPLETE EXAM: XR FOOT RT COMPLETE CLINICAL HISTORY: Hammertoe right foot,rt foot pain,m79.671,m20.41. TECHNIQUE: 2D digital imaging was performed. Three views. COMPARISON: CR XR FOOT LT COMPLETE from 05/15/2024 FINDINGS: BONES: No acute fracture is present. No bony destructive lesion is seen. JOINTS: No dislocation present. Severe hammertoe deformity of the 2nd and 3rd toe. Prominent spurri ng at the dorsum of the navicular. Plantar arch is maintained. SOFT TISSUE: Normal. IMPRESSION: Prominent spurring at the dorsal aspect of navicular. Hammertoe deformities. DATA REPOSITORY: RADIATION DOSE DELIVERED:
--- NOTE | 2024-05-15 10:45 | DI.RAD_ITS ---
Exam(s) XR FOOT LT COMPLETE EXAM: XR FOOT LT COMPLETE CLINICAL HISTORY: Comparison views,lt foot pain, m79.672. TECHNIQUE: 2D digital imaging was performed. Three views. COMPARISON: No exams were available for comparison FINDINGS: BONES: No acute fracture is present. No bony destructive lesion is seen. Small calcaneal enthesophy margret. JOINTS: No dislocation present. Degenerative changes tarsal metatarsal joints, greatest at the 1st tarsal metatarsal joint. Minimal degenerative changes 1st MTP joint. Hammertoe deformities. Spurri ng at dorsum of the talus. SOFT TISSUE: Normal. IMPRESSION: degenerative changes, greatest of the 1st tarsal metatarsal joints. DATA REPOSITORY: RADIATION DOSE DELIVERED:
== END ==
PROVIDERS: PCP Internal Medicine; Visit Provider Podiatrist
DX: M79.671 Pain in right foot (principal); M20.41 Other hammer toe(s) (acquired), right foot; M79.672 Pain in left foot; M77.32 Calcaneal spur, left foot; M19.072 Primary osteoarthritis, left ankle and foot
CPT/HCPCS: 73630

== ENCOUNTER → 2024-06-21 11:03 | Outpatient (BNVA) | payer MEDICARE, MEDICAID, SELFPAY | PROVIDERS: PCP Internal Medicine; Referring Provider Internal Medicine; Visit Provider Podiatrist | DX: M20.41 Other hammer toe(s) (acquired), right foot (principal); M79.671 Pain in right foot; C61 Malignant neoplasm of prostate; G62.0 Drug-induced polyneuropathy; T45.1X5A Adverse effect of antineoplastic and immunosuppressive drugs, initial encounter; C79.51 Secondary malignant neoplasm of bone; L60.2 Onychogryphosis | CPT/HCPCS: 11719; 17110 ==

== ENCOUNTER 2024-06-27 15:01 | Outpatient (CLI) | payer MEDICARE, MEDICAID, SELFPAY ==
--- NOTE | 2024-06-27 | DI.RAD_ITS ---
Exam(s) XR CHEST 2V PA LATERAL EXAM: XR CHEST 2V PA LATERAL CLINICAL HISTORY: MALIGNANT NEOPLASM PROSTATE, C61, PLEURAL EFFUSION YAKELIN, J90, INC SOB, COUGH TECHNIQUE: 2D digital imaging was performed. Two views. COMPARISON: CR XR CHEST 1 VW from 11/14/2023 FINDINGS: HEART: Normal size. Aorta: Not dilated. PULMONARY VASCULATURE: Normal. MEDIASTINUM: Unremarkable. LUNGS: No evidence of focal infiltrate or pulmonary edema.. PLEURAL SPACE: Stable small bilateral pleural effusions. No pneumothorax. BONE:Diffuse sclerotic bony metastases. SOFT TISSUES: Unremarkable. IMPRESSION: Stable small bilateral pleural effusions. DATA REPOSITORY: RADIATION DOSE DELIVERED:
== END 2024-06-27 15:21 ==
LOC: DI 07-05 15:01
PROVIDERS: PCP Internal Medicine; Visit Provider Nurse Practitioner
DX: C61 Malignant neoplasm of prostate (principal); J90 Pleural effusion, not elsewhere classified
CPT/HCPCS: 71046

== ENCOUNTER → 2024-09-26 10:51 | Outpatient (BNVA) | payer MEDICARE, MEDICAID, SELFPAY | PROVIDERS: PCP Internal Medicine; Referring Provider Internal Medicine; Visit Provider Podiatrist | DX: L84 Corns and callosities (principal); M20.41 Other hammer toe(s) (acquired), right foot; M79.674 Pain in right toe(s); C61 Malignant neoplasm of prostate; G62.0 Drug-induced polyneuropathy; T45.1X5A Adverse effect of antineoplastic and immunosuppressive drugs, initial encounter; C79.51 Secondary malignant neoplasm of bone; L60.2 Onychogryphosis; L60.3 Nail dystrophy; B35.1 Tinea unguium; M79.675 Pain in left toe(s) | CPT/HCPCS: 11719 ==

== ENCOUNTER → 2024-11-29 14:24 | Outpatient (BNVA) | payer MEDICARE, MEDICAID, SELFPAY | PROVIDERS: PCP Internal Medicine; Referring Provider Internal Medicine; Visit Provider Podiatrist | DX: M20.41 Other hammer toe(s) (acquired), right foot (principal); L84 Corns and callosities; M79.671 Pain in right foot; C61 Malignant neoplasm of prostate; L60.2 Onychogryphosis; G62.0 Drug-induced polyneuropathy; T45.1X5A Adverse effect of antineoplastic and immunosuppressive drugs, initial encounter; M79.672 Pain in left foot; L60.3 Nail dystrophy | CPT/HCPCS: 11719; 28010 ==

== ENCOUNTER → 2024-12-11 12:58 | Outpatient (BNVA) | payer MEDICARE, MEDICAID, SELFPAY | PROVIDERS: PCP Internal Medicine; Referring Provider Internal Medicine; Visit Provider Podiatrist | DX: M20.41 Other hammer toe(s) (acquired), right foot (principal); L84 Corns and callosities; M79.671 Pain in right foot; C61 Malignant neoplasm of prostate; G62.0 Drug-induced polyneuropathy; T45.1X5A Adverse effect of antineoplastic and immunosuppressive drugs, initial encounter; C79.51 Secondary malignant neoplasm of bone; L60.2 Onychogryphosis | CPT/HCPCS: 99024 ==

== ENCOUNTER → 2025-01-09 13:13 | Outpatient (BNVA) | payer MEDICARE, MEDICAID, SELFPAY | PROVIDERS: PCP Internal Medicine; Referring Provider Internal Medicine; Visit Provider Podiatrist | DX: M20.41 Other hammer toe(s) (acquired), right foot (principal); L84 Corns and callosities; M79.671 Pain in right foot; C61 Malignant neoplasm of prostate; G62.0 Drug-induced polyneuropathy; T45.1X5A Adverse effect of antineoplastic and immunosuppressive drugs, initial encounter; C79.51 Secondary malignant neoplasm of bone; L60.2 Onychogryphosis | CPT/HCPCS: 99214 ==

== ENCOUNTER 2025-01-25 13:05 | Outpatient (CLI) | payer MEDICARE, MEDICAID, SELFPAY ==
[2025-01-25 12:26] LABS: Abs Immature Grans 0.01 10^3/uL (0.0-0.06); Absolute Basophil Count 0.01 10^3/uL (0.0-0.2); Absolute Eosinophil Count 0.05 10^3/uL (0.0-0.7); Absolute Monocyte Count 0.25 10^3/uL (0.1-0.8); Absolute Neutrophil Count 1.48 10^3/uL (1.2-6.7); Basophils % 0.5 %; Eosinophils % 2.3 %; HCT 24.6 % (40.0-50.0); HGB 8.1 g/dL (13.5-17.5); Immature Grans % 0.5 %; Lymphocytes % 18.2 %; MCH 32.5 pg (27.0-33.0); MCHC 32.9 % (32.0-36.0); MCV 99 fL (80-95); MPV 9.3 fL (8.0-11.0); Monocytes % 11.4 %; Neutrophils % 67.1 %; RBC 2.49 10^6/uL (4.36-5.78); RDW-SD 58.1 fL
[2025-01-25 12:41] LABS: ALT 91 U/L (16-63); AST 84 U/L (15-37); Albumin 3.2 g/dL (3.4-5.0); Alkaline Phosphatase 349 U/L (46-116); Anion Gap 8.7 mmol/L (3-11); BUN 31 mg/dL (7-18); Bilirubin, Total 0.4 mg/dL (0.2-1.0); CO2 26.3 mmol/L (21.0-32.0); CREATININE 1.3 mg/dL (0.70-1.30); Calcium 8.9 mg/dL (8.5-10.1); Chloride 106 mmol/L (98-107); Estimated GFR 56.23 (mL/min/1.73m2); Glucose 117 mg/dL (74-106); Potassium 4.1 mmol/L (3.5-5.1); Sodium 141 mmol/L (136-145); Total Protein 6.6 g/dL (6.4-8.2)
[2025-01-25 12:44] LABS: Platelet Count 67 10^3/uL (130-400)
[2025-01-26 22:14] LABS: PSA, Ultrasensitive 20.9 ng/mL (<= 6.5)
[2025-01-29 11:40] LABS: Testosterone, Total <7.0 ng/dL (240-950)
== END 2025-01-25 13:06 | disposition home or self-care (01) ==
LOC: LBO 13:06
PROVIDERS: PCP Internal Medicine; Visit Provider Nurse Practitioner
DX: C61 Malignant neoplasm of prostate (principal)
CPT/HCPCS: 36415; 80053; 84153; 84403; 85025

== ENCOUNTER 2025-03-19 13:10 | Outpatient (CLI) | payer MEDICARE, MEDICAID, SELFPAY ==
[2025-03-19 12:59] LABS: Abs Immature Grans 0.01 10^3/uL (0.0-0.06); Absolute Basophil Count 0.01 10^3/uL (0.0-0.2); Absolute Eosinophil Count 0.02 10^3/uL (0.0-0.7); Absolute Monocyte Count 0.31 10^3/uL (0.1-0.8); Absolute Neutrophil Count 1.14 10^3/uL (1.2-6.7); Basophils % 0.5 %; HGB 7.1 g/dL (13.5-17.5); Immature Grans % 0.5 %; Lymphocytes % 25.1 %; MCH 32.6 pg (27.0-33.0); MCHC 35.3 % (32.0-36.0); MCV 92 fL (80-95); MPV 9.6 fL (8.0-11.0); Monocytes % 15.6 %; Neutrophils % 57.3 %; RBC 2.18 10^6/uL (4.36-5.78); RDW 14.7 % (11.8-14.1); RDW-SD 49.6 fL
[2025-03-19 13:18] LABS: ALT 27 U/L (16-63); AST 54 U/L (15-37); Albumin 3.1 g/dL (3.4-5.0); Alkaline Phosphatase 352 U/L (46-116); Anion Gap 10.5 mmol/L (3-11); BUN 22 mg/dL (7-18); Bilirubin, Total 0.6 mg/dL (0.2-1.0); CO2 25.5 mmol/L (21.0-32.0); CREATININE 1.3 mg/dL (0.70-1.30); Calcium 9.1 mg/dL (8.5-10.1); Chloride 99 mmol/L (98-107); Estimated GFR 56.23 (mL/min/1.73m2); Glucose 104 mg/dL (74-106); Sodium 135 mmol/L (136-145)
[2025-03-19 13:25] LABS: Potassium 2.9 mmol/L (3.5-5.1)
[2025-03-19 13:35] LABS: Diff Comment Diff Reviewed; Platelet Count 52 10^3/uL (130-400); RBC Morphology Normal
[2025-03-19 13:45] LABS: HCT 20.1 % (40.0-50.0); WBC 1.99 10^3/uL (4.4-10.8)
[2025-03-21 22:56] LABS: PSA, Ultrasensitive 108 ng/mL (<= 6.5)
[2025-03-26 09:27] LABS: Testosterone, Total <7.0 ng/dL (240-950)
== END 2025-03-19 13:11 | disposition home or self-care (01) ==
LOC: LBO 13:11
PROVIDERS: PCP Internal Medicine; Visit Provider Nurse Practitioner
DX: C61 Malignant neoplasm of prostate (principal)
CPT/HCPCS: 36415; 80053; 84153; 84403; 85025

== ENCOUNTER 2025-03-22 13:59 | Emergency (ER) | payer MEDICARE, MEDICAID, SELFPAY ==
[2025-03-22] VITALS (15 sets, daily range): BP systolic 157–236; BP diastolic 56–96; PULSE 77–91; RESP 12–30; TEMP 36.7; O2SAT 95–100
--- NOTE | 2025-03-22 14:21 | NUR.NOTE ---
Access pt [facility] [place] chart to get his current medication list. Nursing Note:
--- NOTE | 2025-03-22 14:27 | ED.GENADUL_ITS ---
Discharge Plan Disposition Patient Disposition: Home Condition: Improving Discharge Details Clinical Impression: Chronic pain not due to malignancy, Lumbar radiculitis, Malignant neoplasm metastatic to bone, Constipation Primary Care Provider: Turner Isaacs ED Provider: Waqar Del Cid Home Meds and New Rx's Prescriptions: New gabapentin 300 mg capsule 300 mg PO BID Qty: 20 0RF oxycodone 5 mg tablet 5 mg PO BID Qty: 14 0RF lactulose 10 gram/15 mL solution 10 g PO DAILY PRNQty: 1200 0RF Continued Ensure Complete 0.1 gram- 1.18 kcal/mL liquid PO .5 x day turmeric 400 mg capsule PO abiraterone 250 mg tablet 1,000 mg PO DAILY Rx Instructions: must be taken on empty stomach, at least 1 hr before or 2 hrs after a meal/food acetaminophen 650 mg tablet extended release 650 mg PO Q12H PRN prochlorperazine maleate 10 mg tablet 10 mg PO Q6H PRN sennosides 15 mg tablet 15 mg PO DAILY PRN potassium chloride 20 mEq tablet,ER particles/crystals 20 meq PO DAILY Patient Comments: TAKE ONE TABLET BY MOUTH TWICE A DAY FOR 7 DAYS, THEN DECREASE TO ONE TABLET BY MOUTH EVERY DAY HPI General Date/Time Provider Initiated Documentation: 03/22/25 14:13 . HPI Narrative: Patient presents emergency department complaining of 2 days of severe epigastric abdominal pain and back pain. He has history of metastatic prostate cancer with bone mets states that he was given tramadol but it is not working at all he took some oxycodone but still he feels a lot of pain mostly in his back pelvis and abdomen. Reports nausea vomiting and has not had a bowel movement in 3 days. Related Data Home Medications ?Medication ?Instructions ?Recorded ?Confirmed food supplemt, lactose-reduced 0.1 ml PO .5 x day 04/06/24 01/09/25 gram-1.18 kcal/mL oral liquid (Ensure Complete) turmeric 400 mg capsule mg PO 09/26/24 01/09/25 abiraterone 250 mg tablet 1,000 mg PO DAILY 03/15/25 03/22/25 acetaminophen 650 mg 650 mg PO Q12H PRN 03/15/25 03/22/25 tablet,extended release prochlorperazine maleate 10 mg 10 mg PO Q6H PRN 03/15/25 03/22/25 tablet sennosides 15 mg tablet 15 mg PO DAILY PRN 03/15/25 03/22/25 gabapentin 300 mg capsule 300 mg PO BID #20 caps 03/22/25 lactulose 10 gram/15 mL oral 10 g (15 mL) PO DAILY PRN #1,200 mL 03/22/25 solution oxycodone 5 mg tablet 5 mg PO BID #14 tabs 03/22/25 potassium chloride 20 mEq 20 meq PO DAILY 03/22/25 03/22/25 tablet,extended release(part/cryst) Previous Rx's ?Medication ?Instructions ?Recorded gabapentin 300 mg capsule 300 mg PO BID #20 caps 03/22/25 lactulose 10 gram/15 mL oral 10 g (15 mL) PO DAILY PRN #1,200 mL 03/22/25 solution oxycodone 5 mg tablet 5 mg PO BID #14 tabs 03/22/25 Allergies Allergy/AdvReac Type Severity Reaction Status Date / Time No Known Allergies Allergy Unverified 03/22/25 14:10 General Stated Complaint: GenMedical LILIANE: 3 Review of Systems Narrative: Review of Systems: Constitutional: No fevers, chills, sweats Eye: No recent visual problems ENT: No ear pain, nasal congestion, sore throat Respiratory: No shortness of breath, cough Cardiovascular: No Chest pain, palpitations, syncope Genitourinary: No hematuria Rahul/Lymph: Negative for bruising tendency, swollen lymph glands Endocrine: Negative for excessive thirst, excessive hunger Integumentary: No rash, pruritus, abrasions Neurologic: Alert & oriented X 4 Psychiatric: No anxiety, depression Exam Narrative Exam Narrative: Exam; vitals signs as reported above abnormal Constitutional; In no acute distress, afebrile General: cooperative, healthy appearing, comfortable and no acute distress HEENT: Head: normal to inspection, no palpable skull fracture and normocephalic atraumatic Eyes: : appearance normal, both eyes and all related structures EOM intact bilaterally Pupils: PERRL : conjunctiva normal Direct ophthalmoscopy: normal light reflex, normal conjunctiva, normal visual acuity Ears: Normal TM, normal external canal Nose: normal no rhinorreha Neck no JVD, supple non tender Neck: normal visual inspection, full ROM and no lymphadenopathy Chest: normal inspection of the chest Respiratory : normal respiratory effort and able to speak in complete sentences no wheezing no rales Cardio Rate: regular rate, rhythm: regular rhythm normal heart sounds S1 and S2 no murmurs, gallops, or rubs GI : normal to inspection, normal bowel sounds, soft, non tender, non distended, no organomegaly Back/Spine/ no CVA tenderness Thoracic/Lumbar Spine: no tenderness or deformities Skin no rashes or lesions Neuro: patient alert oriented x 4 and no meningeal signs, Cranial Nerves: CN's II-XI intact bilaterally, Cognition: normal cognition, Speech: speech normal, Gait: normal gait, Depp tendon reflexes normal 2+ muscle strength 5/5 bilaterally Extremities, no edema, full range of motion, normal strength Course Vital Signs Vital signs: Vital Signs Temperature 36.7 C 03/22/25 14:00 Pulse 86 03/22/25 14:00 Respiratory Rate 03/22/25 14:00 Blood Pressure 210/96 H 03/22/25 14:00 Pulse Oximetry 98 03/22/25 14:00 Temperature 36.7 C 03/22/25 14:10 Temperature Source Oral 03/22/25 14:10 Pulse 86 03/22/25 14:10 Respiratory Rate 20 03/22/25 14:10 Blood Pressure 210/96 H 03/22/25 14:10 Blood Pressure Position Sitting 03/22/25 14:10 Pulse Oximetry 98 03/22/25 14:10 Oxygen Delivery Method Room Air 03/22/25 14:10 Oxygen Flow Rate 0 03/22/25 14:10 Pain Level 10 03/22/25 14:10 Medical Decision Making MDM: Summary: Data Review Analysis All the data on this patient was reviewed by me including laboratory and imaging studies as well as bedside studies performed by me Independent review of Studies Imaging Lab: Risk Stratification: Differential Diagnosis: 1. 2. 3. 4. 5. Consultants: Shared disposition: Impression: Medical Records Medical records reviewed: Yes I reviewed the patient's medical records. ECG Data Attestation: I personally reviewed and interpreted this ECG (s) as follows: Prior ECG tracings: available for review Interpretation: Heart rate 77 normal sinus rhythm no acute ST-T changes ND 205 normal axis Quality:SDOH Health Related Social Needs: No Data to Display PFSH All Active Problems (Updated 03/22/25 @ 17:43 by Waqar Del Cid MD) Constipation (Acute) Chronic pain not due to malignancy (Acute) Long toenail (Acute) Pain in left foot (Acute) Chemotherapy-induced neuropathy (Acute) Pain in right foot (Acute) Hammertoe of right foot (Acute) Malignant neoplasm metastatic to bone (Acute) Essential hypertension (Acute) Coronary arteriosclerosis (Acute) Malignant tumor of prostate (Chronic) Spinal stenosis (Acute) Pressure injury of skin of sacral region (Acute) Severe protein-calorie malnutrition (Acute) Transient cerebral ischemia (Chronic) Spinal stenosis of lumbar region (Acute) Pulmonary hypertension (Acute) Pancytopenia (Acute) Sleep apnea, obstructive (Chronic) Mild cognitive disorder (Acute) Dyspnea on exertion (Acute) Bilateral pleural effusion (Acute) Benign prostatic hyperplasia (Chronic) Angina pectoris (Chronic) Acute and chronic respiratory failure with hypoxia (Acute) High risk medication use (Acute) Cancer related pain (Acute) Lumbar radiculitis (Acute) Medical History 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 Palliative care encounter GERD (gastroesophageal reflux disease) HTN (hypertension) Hyperlipidemia Stable angina Paroxysmal A-fib CAD (coronary artery disease) 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 Elevated alkaline phosphatase level Anemia TIA (transient ischemic attack) Abnormal weight loss Shingles Left sided sciatica Prostate cancer metastatic to bone Myalgia Memory impairment Fatigue Metastatic malignant neoplasm to prostate Surgical History S/P PTCA (percutaneous transluminal coronary angioplasty) Family History Mother Leukemia Other Adopted Social History Smoking/Tobacco Use Status: Former Tobacco Use Smoking risk assessment performed?: Yes Alcohol Intake: never Drug use: Never Substance use type: does not use Housing: house Number of Children: 2 What type of physical activity do you participate in: swimming and additional Details: Pool therapy Do you feel safe at home: Yes Do you feel safe in your relationship?: Yes Additional Social history: Former tobacco user: Quit 25 yrs ago
--- NOTE | 2025-03-22 14:30 | RT.EKG_ITS ---
APPROVED REPORT Exam: Resting ECG Reason for Exam: epigastric pain Patient Location: E HR:77 bpm ECG Measurements Heart Rate 77 AXIS MA 205 P 44 QRSd 91 QRS 35 QT 374 T 9 QTc 425 Conclusion Sinus rhythm...normal P axis, V-rate 60- 99
--- NOTE | 2025-03-22 14:30 | DI.CT_ITS ---
Exam(s) CT ABDOMEN PELVIS W EXAM: CT ABDOMEN PELVIS W CLINICAL HISTORY: epigastric pain and vomiting. TECHNIQUE: Imaging Protocol: Axial computed tomography images with coronal and sagittal reformatted images were created and reviewed CONTRAST MATERIAL: Intravenous: Omnipaque-350 75cc Oral: None COMPARISON: CT CT CHEST PE CTA from 09/24/2023 FINDINGS: VISUALIZED LUNG BASES: There is small-moderate size bilateral pleural effusions, right slightly large r than left. No confluent infiltrates evident in the visualized lung bases.. ABDOMEN: There is no ascites in the abdomen and pelvis. LIVER: There are no focal hepatic lesions evident. No dilated intrahepatic ducts. GALLBLADDER/BILIARY: No obvious gallbladder pathology. CBD is not dilated. PANCREAS: No evidence of pancreatic mass nor dilatation of the pancreatic duct. No CT evidence of pa ncreatitis. SPLEEN: Spleen is not enlarged. No obvious intrasplenic lesions. Splenic and portal veins are paten t. ADRENALS: There are no significant adrenal masses. KIDNEYS:No cysts evident. No solid renal masses. No calculi nor hydronephrosis.. ABDOMINAL AORTA: Calcified and atherosclerotic distally. There is mild fusiform enlargement of the l ower abdominal aortic aorta which exhibits maximum diameter of 2.7 cm. There is no aneurysmal dilata tion of the calcified iliac arteries. LYMPH NODES:There is no retroperitoneal nor paraaortic adenopathy. ABDOMINAL WALL: There is a fat containing left inguinal hernia. This does not contain bowel loops. GI: There is abundant fecal material noted in the cecum and right side of the colon. PELVIS: GI: Stomach is collapsed.. No evidence of appendicitis.No evidence of sigmoid diverticulitis. LYMPH NODES: There is no intrapelvic nor inguinal adenopathy. REPRODUCTIVE: Prostate not enlarged. URINARY BLADDER: No calculi nor obvious masses evident OSSEOUS: There is diffuse sclerotic densities throughout the bones of the pelvis consistent with osse ous blastic metastatic disease, these blastic metastases also have been seen on prior CT scan Novem r 2022. Also involves the sternum and ribs. IMPRESSION: 1. 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 Correlation with any past history of prostate malignancy recommended. T here are no fractures. Multilevel chronic degenerative disc disease. 2. Small-moderate size pleural effusions, right slightly larger than left. 3. Atherosclerotic abdominal aorta which mild diffuse 1 enlargement of the lower abdominal, exhibitin g maximum diameter of 2.7 cm. 4. There is an increased amount of fecal material in the right-side of the colon.. No evidence of ap pendicitis nor diverticulitis. Report called by myself to ER provider 03/22/2025 at 4:30 p.m. RADIATION DOSE DELIVERED: 390.27mGy.cm Total DLP DATA REPOSITORY: All CT scans at this facility are submitted to the National Radiology Data Registry (NRDR) Dose Index Registry (DIR) with the [employer] ([employer]). RADIATION OPTIMIZATION: All CT scans at this facility use at least one of these dose optimization te chniques: automated exposure control; mA and/or kV adjustment per patient size (includes targeted exa ms where dose is matched to clinical indication); or iterative reconstruction.
[2025-03-22 15:06] LABS: Lactate 1.1 mmol/L (<or=2.0)
[2025-03-22 15:08] LABS: Abs Immature Grans 0.02 10^3/uL (0.0-0.06); Absolute Basophil Count 0.01 10^3/uL (0.0-0.2); Absolute Eosinophil Count 0.04 10^3/uL (0.0-0.7); Absolute Lymphocyte Count 0.52 10^3/uL (1.2-3.4); Absolute Neutrophil Count 2.22 10^3/uL (1.2-6.7); Basophils % 0.3 %; Eosinophils % 1.3 %; HCT 25.9 % (40.0-50.0); HGB 9.2 g/dL (13.5-17.5); Immature Grans % 0.6 %; Lymphocytes % 16.7 %; MCH 31.4 pg (27.0-33.0); MCHC 35.5 % (32.0-36.0); MCV 88 fL (80-95); MPV 8.3 fL (8.0-11.0); Monocytes % 9.6 %; Neutrophils % 71.5 %; RBC 2.93 10^6/uL (4.36-5.78); RDW-SD 51.9 fL; WBC 3.11 10^3/uL (4.4-10.8)
[2025-03-22] MEDS: HYDROmorphone 2 MG/ML SYR 1 MG IVP ×3 (15:12→18:49)
[2025-03-22] MEDS: Normal Saline 1,000 ML 1000 ML IV (15:13)
[2025-03-22] MEDS: Ondansetron 4 MG/2 ML VIAL IVP ×2 (15:13→18:26)
[2025-03-22 15:22] LABS: Platelet Count 68 10^3/uL (130-400)
[2025-03-22 15:26] LABS: ALT 22 U/L (16-63); AST 44 U/L (15-37); Albumin 3.2 g/dL (3.4-5.0); Alkaline Phosphatase 337 U/L (46-116); Anion Gap 10.4 mmol/L (3-11); BUN 19 mg/dL (7-18); CO2 25.6 mmol/L (21.0-32.0); CREATININE 1.2 mg/dL (0.70-1.30); Calcium 9.6 mg/dL (8.5-10.1); Chloride 102 mmol/L (98-107); Glucose 96 mg/dL (74-106); Lipase 34 U/L (<78); Potassium 3.6 mmol/L (3.5-5.1); Sodium 138 mmol/L (136-145); Total Protein 6.4 g/dL (6.4-8.2)
[2025-03-22 15:30] LABS: Troponin I 19 ng/L (<or=76)
[2025-03-22] MEDS: Normal Saline - Diluent 50 ML VIAL IJ (15:32)
[2025-03-22] MEDS: Omnipaque 350 MG/ML 100 ML BTL 75 ML IJ (15:33)
[2025-03-22 17:53] LABS: Troponin I 21 ng/L (<or=76)
[2025-03-22] MEDS: MORPHine IR 15 MG TAB, 4 TABS/BTL PO (19:02)
== END 2025-03-22 19:31 | disposition home or self-care (01) ==
PROVIDERS: Emergency Provider Emergency Medicine Emergency Medical Services; PCP Internal Medicine
DX: G89.29 Other chronic pain (principal); M54.16 Radiculopathy, lumbar region; K59.00 Constipation, unspecified; C61 Malignant neoplasm of prostate; C79.51 Secondary malignant neoplasm of bone; I10 Essential (primary) hypertension; E78.5 Hyperlipidemia, unspecified; I48.0 Paroxysmal atrial fibrillation; I25.10 Atherosclerotic heart disease of native coronary artery without angina pectoris; Z86.73 Personal history of transient ischemic attack (TIA), and cerebral infarction without residual deficits; Z87.891 Personal history of nicotine dependence
CPT/HCPCS: 80053; 83690; 87040; 93005; 96361; 96374; 96375; 96376; 99285; 74177; 83605; 84484; 85025; 93010; J1171; J2405; J3490

== ENCOUNTER 2025-03-27 00:52 | Outpatient (CLI) | payer MEDICARE, MEDICAID, SELFPAY ==
--- NOTE | 2025-03-27 | DI.CT_ITS ---
Exam(s) CT HEAD WO/W EXAM: CT HEAD WO/W CLINICAL HISTORY: C61,C79.51 Known Metastatic prostate CA, Headaches. TECHNIQUE: Imaging Protocol: Axial computed tomography images with coronal and sagittal reformatted images were created and reviewed. CONTRAST MATERIAL: Intravenous: Omnipaque 350 contrast volume:90 mL COMPARISON: No exams were available for comparison FINDINGS: Ventricles and Extra axial spaces: Normal in size and morphology for the patient's age. Hemorrhage: None. Cerebral parenchyma: No evidence of an acute territorial infarct. Enhancement: No suspicious enhancement. [place]: Unremarkable. Midline shift: None. Brainstem/Cerebellum: Normal. Calvarium: Osseous metastatic disease is present. Visualized Paranasal sinuses/Mastoids: There is a mucous retention cyst in the left maxillary sinus. The remaining visualized paranasal sinuses are clear. IMPRESSION: 1. Osseous metastatic disease. 2. No evidence of an acute territorial infarct or intracranial mass. RADIATION DOSE DELIVERED: 1,682.14mGy.cm Total DLP 1,682.14mGy.cm Total DLP DATA REPOSITORY: All CT scans at this facility are submitted to the National Radiology Data Registry (NRDR) Dose Index Registry (DIR) with the [employer] ([employer]). RADIATION OPTIMIZATION: All CT scans at this facility use at least one of these dose optimization te chniques: automated exposure control; mA and/or kV adjustment per patient size (includes targeted exa ms where dose is matched to clinical indication); or iterative reconstruction.
[2025-03-27] MEDS: Omnipaque 350 MG/ML 100 ML BTL IJ (17:32)
[2025-03-27] MEDS: Normal Saline - Diluent 50 ML VIAL IJ (17:33)
== END 2025-03-27 01:12 ==
LOC: DI 00:52
PROVIDERS: PCP Internal Medicine; Visit Provider Radiology Radiation Oncology
DX: C79.51 Secondary malignant neoplasm of bone (principal); C61 Malignant neoplasm of prostate
CPT/HCPCS: 70470; J3490

== ENCOUNTER 2025-03-27 15:30 | Inpatient (IN) | payer MEDICARE, MEDICAID, SELFPAY ==
[2025-03-27] VITALS (64 sets, daily range): BP systolic 134–231; BP diastolic 64–94; PULSE 71–129; RESP 10–33; TEMP 36.9–37.1; O2SAT 80–100
--- NOTE | 2025-03-27 15:39 | ED.GENADUL_ITS ---
Discharge Plan Discharge Details Chief Complaint: Nk/Back Pain Primary Care Provider: Turner Isaacs ED Provider: Adeline Roger Home Meds and New Rx's Prescriptions: No Action Ensure Complete 0.1 gram- 1.18 kcal/mL liquid PO .5 x day turmeric 400 mg capsule 400 mg PO DAILY abiraterone 250 mg tablet 1,000 mg PO DAILY Rx Instructions: must be taken on empty stomach, at least 1 hr before or 2 hrs after a meal/food acetaminophen 650 mg tablet extended release 650 mg PO Q12H PRN prochlorperazine maleate 10 mg tablet 10 mg PO Q6H PRN sennosides 15 mg tablet 15 mg PO DAILY PRN potassium chloride 20 mEq tablet,ER particles/crystals 20 meq PO DAILY Patient Comments: TAKE ONE TABLET BY MOUTH TWICE A DAY FOR 7 DAYS, THEN DECREASE TO ONE TABLET BY MOUTH EVERY DAY gabapentin 300 mg capsule 300 mg PO BID Qty: 20 0RF lactulose 10 gram/15 mL solution 10 g PO DAILY PRNQty: 1200 0RF oxycodone 5 mg tablet 5 mg PO Q4H PRN (Reason: Moderate to severe pain) Qty: 10 0RF HPI General Date/Time Provider Initiated Documentation: 03/27/25 15:32 . HPI Narrative: Jeffrey is a 79-year-old male who presents to the emergency department today for evaluation of intractable lower abdominal and lower back pain. Pain is rated 9 out of 10. He says this is consistent with his cancer pain, he has prostate cancer which has metastasized to his lower spine. He also has constipation which he attributes to opioid use for pain control. Last BM 6 days ago. Has had nausea and vomiting for the last 1 to 2 days, has been able to hold down some p.o. but has had decreased appetite. Not currently taking stool softeners. Does attribute nausea and vomiting to the new cancer medication started 2 or 3 weeks ago, has been prescribed prednisone but has forgotten to take it. He also reports history of frontal headaches that have been intermittent for the last week, worsened with exertion and vomiting. Denies other associated symptoms with headache today he took 2 doses of oxycodone without improvement of symptoms, says that oral morphine usually works well. He has an appointment scheduled with palliative care on 03/29/2025, says that he would like to have pain control today to help him manage his pain until he has that appointment. He reports he has had chills attributed to pain, no signs of recent illness such as congestion/sore throat/cough, chest pains, shortness of breath, hematuria/dysuria, extremity weakness/numbness. He is not on anticoagulant therapy. Past medical history significant for prostate cancer metastasized to bone, TIA, pulmonary hypertension, pancytopenia, CAD, paroxysmal A-fib, HTN, HLD, and GERD. Palliative care patient followed by cancer center. Recent CT scan showed bone lesions causing pain, patient also has increasing PSA levels. He is undergoing radiation therapy for pain, as well as oral chemotherapy.. Accompanied by friend Nico.. Related Data Home Medications ?Medication ?Instructions ?Recorded ?Confirmed food supplemt, lactose-reduced 0.1 ml PO .5 x day 04/06/24 01/09/25 gram-1.18 kcal/mL oral liquid (Ensure Complete) turmeric 400 mg capsule 400 mg PO DAILY 09/26/24 03/27/25 abiraterone 250 mg tablet 1,000 mg PO DAILY 03/15/25 03/27/25 acetaminophen 650 mg 650 mg PO Q12H PRN 03/15/25 03/27/25 tablet,extended release prochlorperazine maleate 10 mg 10 mg PO Q6H PRN 03/15/25 03/27/25 tablet sennosides 15 mg tablet 15 mg PO DAILY PRN 03/15/25 03/27/25 gabapentin 300 mg capsule 300 mg PO BID #20 caps 03/22/25 03/27/25 lactulose 10 gram/15 mL oral 10 g (15 mL) PO DAILY PRN #1,200 mL 03/22/25 03/27/25 solution oxycodone 5 mg tablet 5 mg PO Q4H PRN Moderate to severe 03/22/25 03/27/25 pain #10 tabs potassium chloride 20 mEq 20 meq PO DAILY 03/22/25 03/27/25 tablet,extended release(part/cryst) Previous Rx's ?Medication ?Instructions ?Recorded gabapentin 300 mg capsule 300 mg PO BID #20 caps 03/22/25 lactulose 10 gram/15 mL oral 10 g (15 mL) PO DAILY PRN #1,200 mL 03/22/25 solution oxycodone 5 mg tablet 5 mg PO Q4H PRN Moderate to severe 03/22/25 pain #10 tabs Allergies Allergy/AdvReac Type Severity Reaction Status Date / Time No Known Allergies Allergy Verified 03/27/25 15:35 General Stated Complaint: Nk/Back Pain LILIANE: 3 Exam Const General: cooperative, healthy appearing and well developed Nutritional Appearance: average body habitus Orientation: alert and oriented x3 Resp Effort & Inspection: normal respiratory effort and able to speak in complete sentences Auscultation: clear to auscultation bilaterally Cardio Rate: regular rate Rhythm: regular rhythm GI Inspection: normal to inspection, no abdominal wall ecchymosis, non-distended and no obesity Palpation: soft, not firm, not rigid and tender in the LLQ, in the RLQ and huitron prapubicly Auscultation: normal bowel sounds Rectal Exam: visual inspection normal, normal sphincter tone, No fecal impaction and No hemorrhoids Neuro General: patient alert, patient oriented x3 and tone normal Extrem General: normal to inspection Course Vital Signs Vital signs: Vital Signs Temperature 36.9 C 03/27/25 15:36 Pulse 86 03/27/25 15:36 Respiratory Rate 16 03/27/25 15:36 Pulse Oximetry 98 03/27/25 15:36 Temperature 36.9 C 03/27/25 15:36 Temperature Source Oral 03/27/25 15:36 Pulse 86 03/27/25 15:36 Respiratory Rate 16 03/27/25 15:36 Pulse Oximetry 98 03/27/25 15:36 Oxygen Delivery Method Room Air 03/27/25 15:36 Oxygen Flow Rate 0 03/27/25 15:36 Pain Level 9 03/27/25 15:36 Medical Decision Making Initial Assessment: Jeffrey, a 79-year-old male with a history of malignant neoplasm tumor of prostate metastasis to bone, TIA, pulmonary hypertension, pancytopenia, CAD, paroxysmal A-fib, HTN, HLD, GERD, presents with severe pain, constipation, and vomiting. ED Course: - Pain relief provided, required multiple doses of IV morphine/Dilaudid. - Recommend MiraLAX for gentle stool softening. - Resume prednisone with cancer medication to manage side effects. - Conduct scan to rule out bowel perforation/acute intra-abdominal complication - Palliative care consulted; discussed case with Ariella Pratt, palliative care provider. She recommends fentanyl patch 12 mcg and Dilaudid 2 mg p.o. every 3 to 4 hours for breakthrough pain. Fentanyl patch will take approximately 6 hours to take effect, this will likely provide good pain control. Recommend close palliative care follow-up. DDx includes but is not limited to: Intractable cancer pain, bowel obstruction, intracranial neoplasm, constipation, bowel perforation, diverticulitis/colitis, electrolyte imbalance, dehydration I independently interpreted the following tests: Persistent pancytopenia noted. Slightly worsening anemia from baseline, 8.0 and 23.2 (decreased from 9.2 and 25.2 on 03/22/25), mild hypokalemia potassium 3.3. UA reassuring, only small blood noted in urine; no previous available for comparison. Head CT performed, osseous metastatic disease noted in the calvarium, no evidence of acute infarct or intracranial mass Final Assessment: Administered IV morphine for pain relief, recommended MiraLAX for constipation, and advised resuming prednisone to manage vomiting due to cancer medication side effects. Ordered scan to rule out bowel perforation. Clinical Impression: - Severe pain due to bone metastasis from prostate cancer and constipation. - Constipation. Disposition: - Discharge: Follow-up with palliative care on 29 Mar 2025 for long-term pain management. MDM Components Evaluation: - Number of Differential Diagnoses or Management Options: Severe pain, constipation, vomiting. - Amount and Complexity of Data Reviewed: Patient history, physical examination, and planned diagnostic scan. - Risk of Complication and Morbidity or Mortality: High due to advanced cancer and multiple comorbidities. Patient consented to the use of [facility] Quality:SDOH Health Related Social Needs: No Data to Display PFSH All Active Problems (Updated 03/22/25 @ 17:43 by Waqar Del Cid MD) Constipation (Acute) Chronic pain not due to malignancy (Acute) Long toenail (Acute) Pain in left foot (Acute) Chemotherapy-induced neuropathy (Acute) Pain in right foot (Acute) Hammertoe of right foot (Acute) Malignant neoplasm metastatic to bone (Acute) Essential hypertension (Acute) Coronary arteriosclerosis (Acute) Malignant tumor of prostate (Chronic) Spinal stenosis (Acute) Pressure injury of skin of sacral region (Acute) Severe protein-calorie malnutrition (Acute) Transient cerebral ischemia (Chronic) Spinal stenosis of lumbar region (Acute) Pulmonary hypertension (Acute) Pancytopenia (Acute) Sleep apnea, obstructive (Chronic) Mild cognitive disorder (Acute) Dyspnea on exertion (Acute) Bilateral pleural effusion (Acute) Benign prostatic hyperplasia (Chronic) Angina pectoris (Chronic) Acute and chronic respiratory failure with hypoxia (Acute) High risk medication use (Acute) Cancer related pain (Acute) Lumbar radiculitis (Acute) Medical History 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 Palliative care encounter GERD (gastroesophageal reflux disease) HTN (hypertension) Hyperlipidemia Stable angina Paroxysmal A-fib CAD (coronary artery disease) 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 Elevated alkaline phosphatase level Anemia TIA (transient ischemic attack) Abnormal weight loss Shingles Left sided sciatica Prostate cancer metastatic to bone Myalgia Memory impairment Fatigue Metastatic malignant neoplasm to prostate Surgical History S/P PTCA (percutaneous transluminal coronary angioplasty) Family History Mother Leukemia Other Adopted Social History Smoking/Tobacco Use Status: Former Tobacco Use Smoking risk assessment performed?: Yes Alcohol Intake: never Drug use: Never Substance use type: does not use Housing: house Number of Children: 2 What type of physical activity do you participate in: swimming and additional Details: Pool therapy Do you feel safe at home: Yes Do you feel safe in your relationship?: Yes Additional Social history: Former tobacco user: Quit 25 yrs ago
[2025-03-27 16:24] LABS: Bilirubin Negative (Negative); Blood Small (Negative); Clarity Clear (Clear); Glucose Negative (Negative); Ketones Negative (Negative); Leukocyte Esterase Negative (Negative); Nitrite Negative (Negative); Urobilinogen 0.2 mg/dL (Up to 0.2); pH 5.5 (5-8)
[2025-03-27] MEDS: MORPHine 4 MG/ML SYR IVP (16:29)
[2025-03-27 16:32] LABS: WBC Negative HPF (0-5)
[2025-03-27 16:33] LABS: Bacteria Negative HPF (Negative); C & S Indicated? No; Casts Negative LPF (Negative); Crystals Negative HPF (Negative); Epithelial Cells Negative HPF (Negative); Mucus Negative (Negative)
[2025-03-27 16:35] LABS: Abs Immature Grans 0.01 10^3/uL (0.0-0.06); Absolute Basophil Count 0.02 10^3/uL (0.0-0.2); Absolute Eosinophil Count 0.04 10^3/uL (0.0-0.7); Absolute Lymphocyte Count 0.56 10^3/uL (1.2-3.4); Absolute Monocyte Count 0.39 10^3/uL (0.1-0.8); Absolute Neutrophil Count 2.09 10^3/uL (1.2-6.7); Basophils % 0.6 %; Eosinophils % 1.3 %; HCT 23.2 % (40.0-50.0); Immature Grans % 0.3 %; MCH 31.6 pg (27.0-33.0); MCHC 34.5 % (32.0-36.0); MCV 92 fL (80-95); MPV 9.4 fL (8.0-11.0); Monocytes % 12.5 %; Neutrophils % 67.3 %; RBC 2.53 10^6/uL (4.36-5.78); RDW 15.8 % (11.8-14.1); RDW-SD 52.2 fL; WBC 3.11 10^3/uL (4.4-10.8)
[2025-03-27] MEDS: Ondansetron 4 MG/2 ML VIAL IVP ×2 (16:44→21:04)
[2025-03-27 16:50] LABS: Diff Comment PLT Morph Reviewed; Hypochromasia 2+; Platelet Count 70 10^3/uL (130-400)
[2025-03-27 16:58] LABS: ALT 16 U/L (16-63); AST 41 U/L (15-37); Albumin 3.1 g/dL (3.4-5.0); Alkaline Phosphatase 331 U/L (46-116); Anion Gap 7.2 mmol/L (3-11); BUN 20 mg/dL (7-18); Bilirubin, Total 0.6 mg/dL (0.2-1.0); CO2 26.8 mmol/L (21.0-32.0); CREATININE 1.3 mg/dL (0.70-1.30); Chloride 101 mmol/L (98-107); Estimated GFR 56.23 (mL/min/1.73m2); Glucose 86 mg/dL (74-106); Potassium 3.3 mmol/L (3.5-5.1); Sodium 135 mmol/L (136-145); Total Protein 6.2 g/dL (6.4-8.2)
[2025-03-27] MEDS: HYDROmorphone 2 MG/ML SYR 0.5 MG IVP ×2 (17:40→18:08)
[2025-03-27] MEDS: HYDROmorphone 2 MG TAB PO (18:42)
[2025-03-27] MEDS: fentaNYL 12 MCG PATCH TD (19:07)
[2025-03-27] MEDS: HYDROmorphone 2 MG/ML SYR 1 MG IVP (20:44)
[2025-03-27] MEDS: Lactated Ringers 500 ML IV (21:31)
--- NOTE | 2025-03-27 21:45 | DI.RAD_ITS ---
Exam(s) XR ABDOMEN FLAT UPRIGHT EXAM: 2D digital imaging was performed. CLINICAL HISTORY: constipation. COMPARISON: CT CT ABDOMEN PELVIS W from 03/22/2025 TECHNIQUE: Supine and upright views of the abdomen was performed. Three images were obtained. FINDINGS: LUNG BASES: Clear. BOWEL GAS PATTERN: Nondistended. There is a large amount of stool throughout the colon suggesting con stipation. FREE AIR: None. CALCIFICATIONS: No radiopaque calcifications. OSSEOUS STRUCTURES: Sclerotic foci are seen in the bones consistent with metastatic disease. There i s a left convex lumbar scoliosis. OTHER FINDINGS: There is contrast seen in the urinary bladder which may reflect excretion from recent CT examination. IMPRESSION: There is a large amount of stool throughout the colon suggesting constipation. DATA REPOSITORY: RADIATION DOSE DELIVERED:
--- NOTE | 2025-03-27 22:14 | W.PM.HP.N ---
Date of service: 03/27/25 Time of Service: 22:14 Assessment and Plan Assessment and plan (1) Severe protein-calorie malnutrition: Status: Acute Assessment and plan: Plan to consult dietary in the a.m. Would consider appetite stimulants. There is some research that says that dronabinol might be the alternative. Will await further recommendations from palliative care though. (2) Malignant tumor of prostate: Status: Chronic Assessment and plan: Patient is currently getting radiation therapy for an attempt to control his pain. The pt is also on abiraterone (3) Malignant neoplasm metastatic to bone: Status: Acute Assessment and plan: Currently has a fentanyl patch and I have added iv dilaudid. Once again, will await input from palliative care (4) Palliative care encounter: (5) Constipation: Status: Acute Assessment and plan: Will add relistor 2/2 opioid use in the outpatient setting on lovenox for dvtp (aware of low plts, but increased embolism risk 2/2 cancer) History of Present Illness History of Present Illness Chief Complaint: bone pain Narrative: This is a 79-year-old gentleman who has been diagnosed with metastatic prostate cancer. He is a came to the ED today because of worsening lower back pain as well as lower abdominal pain. While in the ED the plan was to get a CT of his abdomen and lumbar spine but his pain was too great that he could not sit still. Originally he was going to be discharged home with follow-up with palliative care but as his pain was not controlled with not only p.o. medications met with IV as well the plan became to admit him for palliative consultation as well as better pain control. The patient is taking prednisone and is also getting radiation therapy for pain control. The patient does want to be full code but states that if after 4 rounds of CPR he has not regained consciousness he wishes to have the code called off. In reviewing his labs from his admission he does have thrombocytopenia as well as leukopenia. He also has mild hyponatremia and mild hypokalemia he does have an elevated BUN to creatinine ratio at 22 1.3. He does have mild transaminitis. He is calcium level is within normal limits. He does have a little bit of hematuria in his urine. While in the ED he also had a CT that showed multiple blastic metastasis as well as moderate pleural effusion and constipation. In reviewing his CT from September at that time he had multiple blastic metastasis in his thoracic spinal column as well as the sternum and rib cages. Recent CT of his head did show osseous metastatic lesions to his calvarium. Review of Systems All systems reviewed & are unremarkable except as noted in HPI and below PFSH All Active Problems (Updated 03/27/25 @ 22:29 by Turner Adams MD) Constipation (Acute) Constipation (Acute) Chronic pain not due to malignancy (Acute) Long toenail (Acute) Pain in left foot (Acute) Chemotherapy-induced neuropathy (Acute) Pain in right foot (Acute) Hammertoe of right foot (Acute) Malignant neoplasm metastatic to bone (Acute) Essential hypertension (Acute) Coronary arteriosclerosis (Acute) Malignant tumor of prostate (Chronic) Spinal stenosis (Acute) Pressure injury of skin of sacral region (Acute) Severe protein-calorie malnutrition (Acute) Transient cerebral ischemia (Chronic) Spinal stenosis of lumbar region (Acute) Pulmonary hypertension (Acute) Pancytopenia (Acute) Sleep apnea, obstructive (Chronic) Mild cognitive disorder (Acute) Dyspnea on exertion (Acute) Bilateral pleural effusion (Acute) Benign prostatic hyperplasia (Chronic) Angina pectoris (Chronic) Acute and chronic respiratory failure with hypoxia (Acute) High risk medication use (Acute) Cancer related pain (Acute) Lumbar radiculitis (Acute) Medical History 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 Palliative care encounter GERD (gastroesophageal reflux disease) HTN (hypertension) Hyperlipidemia Stable angina Paroxysmal A-fib CAD (coronary artery disease) 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 Elevated alkaline phosphatase level Anemia TIA (transient ischemic attack) Abnormal weight loss Shingles Left sided sciatica Prostate cancer metastatic to bone Myalgia Memory impairment Fatigue Metastatic malignant neoplasm to prostate Surgical History S/P PTCA (percutaneous transluminal coronary angioplasty) Family History Mother Leukemia Other Adopted Social History Smoking/Tobacco Use Status: Former Tobacco Use Smoking risk assessment performed?: Yes Alcohol Intake: never Drug use: Never Substance use type: does not use Housing: house Number of Children: 2 What type of physical activity do you participate in: swimming and additional Details: Pool therapy Do you feel safe at home: Yes Do you feel safe in your relationship?: Yes Additional Social history: Former tobacco user: Quit 25 yrs ago Meds Allergies and Home Medications Allergies Allergy/AdvReac Type Severity Reaction Status Date / Time No Known Allergies Allergy Verified 03/27/25 15:35 Home Medications ?Medication ?Instructions ?Recorded ?Confirmed ?Type food supplemt, lactose-reduced 0.1 ml PO .5 x day 04/06/24 01/09/25 History gram-1.18 kcal/mL oral liquid (Ensure Complete) turmeric 400 mg capsule 400 mg PO DAILY 09/26/24 03/27/25 History abiraterone 250 mg tablet 1,000 mg PO DAILY 03/15/25 03/27/25 History acetaminophen 650 mg 650 mg PO Q12H PRN 03/15/25 03/27/25 History tablet,extended release prochlorperazine maleate 10 mg 10 mg PO Q6H PRN 03/15/25 03/27/25 History tablet sennosides 15 mg tablet 15 mg PO DAILY PRN 03/15/25 03/27/25 History gabapentin 300 mg capsule 300 mg PO BID #20 caps 03/22/25 03/27/25 Rx lactulose 10 gram/15 mL oral 10 g (15 mL) PO DAILY PRN #1,200 mL 03/22/25 03/27/25 Rx solution oxycodone 5 mg tablet 5 mg PO Q4H PRN Moderate to severe 03/22/25 03/27/25 Rx pain #10 tabs potassium chloride 20 mEq 20 meq PO DAILY 03/22/25 03/27/25 History tablet,extended release(part/cryst) Exam Narrative Exam Narrative: HEENT: Normocephalic atraumatic his mucous membranes are dry his pupils are not pinpoint at this time. I would say approximately 3 mm to 4 mm bilaterally Neck: No lymphadenopathy no JVD no thyromegaly Cardiovascular: Regular rate and rhythm no murmur rubs or gallops Lungs: Clear to auscultation bilaterally with good air exchange Abdomen: Scaphoid not very distended and fairly soft Extremities: No sinus clubbing or edema Neurologic: Cranial nerves II through XII are intact as tested reflexes upper extremity normal as tested Psych: He is somewhat somnolent but appropriate for the amount of pain meds he has been getting. Results Labs 03/27/25 16:20 03/27/25 16:20 Labs: Laboratory Results - last 24 hr 03/27/25 03/27/25 16:10 16:20 WBC 3.11 L RBC 2.53 L Hgb 8.0 L Hct 23.2 L MCV 92 MCH 31.6 MCHC 34.5 RDW 15.8 H Plt Count 70 L MPV 9.4 Immature Gran % 0.3 Neutrophils % 67.3 Lymphocytes % 18.0 Monocytes % 12.5 Eosinophils % 1.3 Basophils % 0.6 Nucleated RBC % 0.0 Absolute Neutrophils 2.09 Absolute Lymphocytes 0.56 L Absolute Monocytes 0.39 Absolute Eosinophils 0.04 Absolute Basophils 0.02 RBC Morphology See Below Hypochromasia 2+ VBG Lactate 1.0 Sodium 135 L Potassium 3.3 L Chloride 101 Carbon Dioxide 26.8 Anion Gap 7.2 BUN 20 H Creatinine 1.3 Est GFR (CKD-EPI 2020) 56.23 Glucose 86 Calcium 9.0 Total Bilirubin 0.6 AST 41 H ALT 16 Alkaline Phosphatase 331 H Total Protein 6.2 L Albumin 3.1 L Urine Color Yellow Urine Clarity Clear Urine pH 5.5 Ur Specific [place] 1.010 Urine Protein Trace Urine Ketones Negative Urine Blood Small H Urine Nitrite Negative Urine Bilirubin Negative Urine Urobilinogen 0.2 Ur Leukocyte Esterase Negative Urine RBC 3-5 H Urine WBC Negative Ur Epithelial Cells Negative Urine Crystals Negative Urine Bacteria Negative Urine Casts Negative Urine Mucus Negative Ur Culture Indicated? No Urine Glucose Negative Last Vital Signs Temp 36.9 C 03/27/25 15:36 Pulse 78 03/27/25 21:31 Resp 16 03/27/25 21:31 BP 162/69 H 03/27/25 21:31 Pulse Ox 100 03/27/25 21:31 Time Spent Time spent with Patient: 40-54 minutes Time was spent: preparing to see the patient(eg.review tests), obtaining and/or reviewing separately otained hiistory, ordering medications,tests, procedures, referring, communicating with other health senior care provider, indepentently interpreting results, counseling the patient and care coordination
--- NOTE | 2025-03-27 23:13 | DI.VRAD_ITS ---
PROCEDURE INFORMATION: Exam: XR Abdomen Exam date and time: 03/27/2025 10:14 PM Age: 79 years old Clinical indication: Constipation; Prior surgery; Surgery date: 6+ months; Surgery type: Back surgery 10 years ago TECHNIQUE: Imaging protocol: Radiologic exam of the abdomen. Views: 2 Views. Upright and supine views. COMPARISON: CT ABDOMEN PELVIS W 03/27/2025 5:24 PM FINDINGS: Gastrointestinal tract: Moderate stool throughout the colon and rectum. Intraperitoneal space: Normal. No free air. Bones/joints: The lumbar spine demonstrates moderate degenerative changes at multiple levels. Diffuse sclerotic lesions throughout the pelvis, may represent metastatic process. IMPRESSION: Moderate stool burden, correlate for constipation. Diffuse sclerotic lesions throughout the pelvis. Dictated and Authenticated by: Emmie Billingsley MD. Orderin Chacho Lr MD
--- NOTE | 2025-03-27 23:21 | W.PC.ACHO ---
Registration Status: Primary Language: Preferred Language: ED Information & Data Chief Complaint Nk/Back Pain 03/27/25 16:02 Triage Note Metastatic prostate CA. 03/27/25 15:36 Coming from cancer center uncontrolled pain. Pt reports morphine helps, but oxycodone is not working. Pt reports pain in lower back and abdomen. Needs pain plan with palliative care. Reports 07/18. Medical / Surgical History (Last Reviewed 03/22/25 @ 14:59 by Waqar Del Cid MD) Heart disease Palliative care encounter GERD (gastroesophageal reflux disease) HTN (hypertension) Hyperlipidemia Stable angina Paroxysmal A-fib CAD (coronary artery disease) 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 Elevated alkaline phosphatase level Anemia TIA (transient ischemic attack) Abnormal weight loss Shingles Left sided sciatica Prostate cancer metastatic to bone Myalgia Memory impairment Fatigue Metastatic malignant neoplasm to prostate (Last Reviewed 03/22/25 @ 14:59 by Waqar Del Cid MD) S/P PTCA (percutaneous transluminal coronary angioplasty) Most Recent Vital Signs Temperature 36.9 C 03/27/25 15:36 Temperature Source Oral 03/27/25 15:36 Pulse 84 03/27/25 23:10 Pulse 84 03/27/25 23:10 Respiratory Rate 14 03/27/25 23:10 Blood Pressure 209/72 H 03/27/25 22:01 Blood Pressure Mean 120 03/27/25 22:01 Pulse Oximetry 100 03/27/25 23:10 Respiratory End-tidal CO2 13 03/27/25 22:40 Oxygen Delivery Method Room Air 03/27/25 15:36 Oxygen Flow Rate 0 03/27/25 15:36 Pain Level 8 03/27/25 20:44 Comment 2L oxygen initiated at this time 03/27/25 21:10 Allergies No Known Allergies Allergy (Verified 03/27/25 15:35) Active Medications Generic Name Dose Route Start Last Admin Trade Name Freq PRN Reason Stop Dose Admin Hydromorphone HCl 0.5 mg 03/27/25 16:48 03/27/25 17:40 Hydromorphone 2 Mg/Ml Syr IVP 0.5 mg Q4H PRN PRN Administration Hydromorphone HCl 2 mg 03/27/25 18:25 03/27/25 18:42 Hydromorphone 2 Mg Tab PO 2 mg Q3H PRN PRN Administration IV IV Catheter Type [Right Saline Lock Forearm] IV Catheter Gauge [Right 18 Forearm] Diet Orders Category Date Time Status Regular/Normal [DIET] Nutrition 03/28/25 Breakfast Ordered Diagnostics 03/27/25 03/27/25 Range/Units 16:20 16:10 WBC 3.11 L (4.4-10.8) 10^3/uL RBC 2.53 L (4.36-5.78) 10^6/uL Hgb 8.0 L (13.5-17.5) g/dL Hct 23.2 L (40.0-50.0) % MCV 92 (80-95) fL MCH 31.6 (27.0-33.0) pg MCHC 34.5 (32.0-36.0) % RDW 15.8 H (11.8-14.1) % Plt Count 70 L (130-400) 10^3/uL MPV 9.4 (8.0-11.0) fL Immature Gran % 0.3 % Neutrophils % 67.3 % Lymphocytes % 18.0 % Monocytes % 12.5 % Eosinophils % 1.3 % Basophils % 0.6 % Nucleated RBC % 0.0 (0.0-0.3) % Absolute Neutrophils 2.09 (1.2-6.7) 10^3/uL Absolute Lymphocytes 0.56 L (1.2-3.4) 10^3/uL Absolute Monocytes 0.39 (0.1-0.8) 10^3/uL Absolute Eosinophils 0.04 (0.0-0.7) 10^3/uL Absolute Basophils 0.02 (0.0-0.2) 10^3/uL RBC Morphology See Below Hypochromasia 2+ VBG Lactate 1.0 (<or=2.0) mmol/L Sodium 135 L (136-145) mmol/L Potassium 3.3 L (3.5-5.1) mmol/L Chloride 101 (98-107) mmol/L Carbon Dioxide 26.8 (21.0-32.0) mmol/L Anion Gap 7.2 (3-11) mmol/L BUN 20 H (7-18) mg/dL Creatinine 1.3 (0.70-1.30) mg/dL Est GFR (CKD-EPI 2020) 56.23 (mL/min/1.73m2) Glucose 86 (74-106) mg/dL Calcium 9.0 (8.5-10.1) mg/dL Total Bilirubin 0.6 (0.2-1.0) mg/dL AST 41 H (15-37) U/L ALT 16 (16-63) U/L Alkaline Phosphatase 331 H (46-116) U/L Total Protein 6.2 L (6.4-8.2) g/dL Albumin 3.1 L (3.4-5.0) g/dL Urine Color Yellow (Yellow) Urine Clarity Clear (Clear) Urine pH 5.5 (5-8) Ur Specific [place] 1.010 (1.005-1.025) Urine Protein Trace (Neg-Trace) mg/dL Urine Ketones Negative (Negative) mg/dL Urine Blood Small H (Negative) Urine Nitrite Negative (Negative) Urine Bilirubin Negative (Negative) Urine Urobilinogen 0.2 (Up to 0.2) mg/dL Ur Leukocyte Esterase Negative (Negative) Urine RBC 3-5 H (0-2) HPF Urine WBC Negative (0-5) HPF Ur Epithelial Cells Negative (Negative) HPF Urine Crystals Negative (Negative) HPF Urine Bacteria Negative (Negative) HPF Urine Casts Negative (Negative) LPF Urine Mucus Negative (Negative) Ur Culture Indicated? No Urine Glucose Negative (Negative) mg/dL Intake and Output - 24 Hour Total 03/27/25 15:30 thru 03/27/25 15:36 Weight 73.936 kg Falls Risk Assessment History of Falls No History 03/27/25 15:39 Contributing Factors Impairments,Medications 03/27/25 15:39 Ambulatory Aids Uses ambulatory device + 03/27/25 15:39 Tubes/Lines With any additional score 03/27/25 15:39 Gait Evaluation W/any additional score 03/27/25 15:39 Cognition No cognitive impairment 03/27/25 15:39 Fall Total Score 76 03/27/25 15:39 Level of Risk Maximum Risk 03/27/25 15:39 Problems (Last Reviewed 03/22/25 @ 14:59 by Waqar Del Cid MD) Constipation (Acute) Malignant neoplasm metastatic to bone (Acute) Malignant tumor of prostate (Chronic) Severe protein-calorie malnutrition (Acute) v v v v v v v v v Sending and/or Receiving Nurses: Please use comment section below to note any information pertinent to the patient hand-off not included above. Information / Comments: Report taken from FURNITURE MANAGER Chano, patient admitted for pain control, came from [facility], cancer patient. Had no BM for 6 days, had episode of nausea and vomiting prior to ER admit. Unable to do CAT scan due to pain. , Has fentanyl patch on the chest (12 mcg) placed in ER. Nurse Chano said that med rec updated at 1530 . All questions answered appropriately. Report received from:
[2025-03-27] MEDS: Normal Saline 1,000 ML 125 ML IV (23:41)
[2025-03-28] MEDS: Methylnaltrexone 12 MG/0.6 ML VIAL 8 MG SC (00:28)
[2025-03-28 04:23] VITALS: BP 125/72; PULSE 95; RESP 19; TEMP 36.9; O2SAT 100
[2025-03-28] MEDS: HYDROmorphone 2 MG/ML SYR IVP (04:39)
[2025-03-28 07:01] LABS: Abs Immature Grans 0.01 10^3/uL (0.0-0.06); Absolute Basophil Count 0.01 10^3/uL (0.0-0.2); Absolute Eosinophil Count 0.02 10^3/uL (0.0-0.7); Absolute Lymphocyte Count 0.35 10^3/uL (1.2-3.4); Absolute Monocyte Count 0.28 10^3/uL (0.1-0.8); Absolute Neutrophil Count 1.17 10^3/uL (1.2-6.7); Basophils % 0.5 %; Eosinophils % 1.1 %; Immature Grans % 0.5 %; MCH 32.2 pg (27.0-33.0); MCHC 35.2 % (32.0-36.0); MCV 92 fL (80-95); MPV 9.3 fL (8.0-11.0); Monocytes % 15.2 %; Neutrophils % 63.7 %; Platelet Count 58 10^3/uL (130-400); RBC 2.14 10^6/uL (4.36-5.78); RDW 15.7 % (11.8-14.1)
[2025-03-28 07:19] LABS: ALT 15 U/L (16-63); AST 34 U/L (15-37); Albumin 2.6 g/dL (3.4-5.0); Alkaline Phosphatase 289 U/L (46-116); Anion Gap 7.3 mmol/L (3-11); BUN 17 mg/dL (7-18); Bilirubin, Total 0.6 mg/dL (0.2-1.0); CO2 27.7 mmol/L (21.0-32.0); CREATININE 1.2 mg/dL (0.70-1.30); Chloride 105 mmol/L (98-107); Glucose 91 mg/dL (74-106); Potassium 3.1 mmol/L (3.5-5.1); Sodium 140 mmol/L (136-145); Total Protein 5.3 g/dL (6.4-8.2)
[2025-03-28 07:31] LABS: HCT 19.6 % (40.0-50.0); HGB 6.9 g/dL (13.5-17.5); WBC 1.84 10^3/uL (4.4-10.8)
[2025-03-28 07:32] LABS: Diff Comment Diff Reviewed; RBC Morphology Normal
[2025-03-28] MEDS: Normal Saline 1,000 ML 125 ML IV ×3 (07:47→23:21)
[2025-03-28] MEDS: Polyethylene Glycol 3350 17 GM PACKET PO (07:57)
[2025-03-28] MEDS: Docusate Sodium 100 MG CAP PO ×2 (07:57→18:18)
[2025-03-28] MEDS: Prochlorperazine 10 MG TAB PO (08:04)
--- NOTE | 2025-03-28 08:25 | PDOC.CMIN ---
Date of service: 03/28/25 Time of Service: 08:25 Care Management Initial Assmt Initial Assessment Reason for Hospitalization: Cancer related pain Functional Status/Living Situation Patient Presentation: Jeffrey was awake and lying in bed when CM met with him. He is agreeable to meet with CM; although conversation was very brief and limited to mostly 'yes' or 'no' responses. Jeffrey reports 8/10 pain (CM notified nursing.) Jeffrey lives alone in [place], he has 2 daughters and a that live in [facility] [place]. He has a few friends that live locally and per nursing he had 1 visitor today. Jeffrey drives and is independent at baseline. He is planning to discharge home when his constipation is resolved and his pain is better controlled. CM will continue to follow. Town of Residence: [place] Resides with: Alone Significant Other/Family: Out of area (No local family, 2 daughters and his live out of town.) Employment Status: Retired Instrumental Activities of Daily Living (ADLs): Independent Medications Medication Management: No Issues/Barriers identified Physical Functioning/Mobility Assistive Device: Walker Advance Directives Advance Directives: Do you have an Advance Directive: N 07/14/17 09:52 AD On File at [facility]: N 12/18/15 15:27 Date Asked 03/27/25 03/27/25 15:39 AD Date Reviewed COLST On File at [facility] No 03/22/25 14:09 COLST Date Scanned Code Status Resuscitation Status Full Code Portal Pt does not currently have a portal and education provided: Yes Insurance Coverage/Financial Issues Insurance: Medicare Part A & B - [id number] Medicaid of [place] - [id number] Care Team Visit Care Team Role Provider Type Boubacar Phillips MD MD [facility] STAFF PHYSICIAN Turner Isaacs Primary Care Provider NON-[facility] STAFF PHYSICIAN Arianna Wynne Other Providers CONTROL ROOM TECHNICIAN Sierra Ortega Other Providers CONTROL ROOM TECHNICIAN Shakira Lawrence Other Providers CONTROL ROOM TECHNICIAN Marlena Jarrett RN Other Providers CONTROL ROOM TECHNICIAN Catherine Adams Other Providers CONTROL ROOM TECHNICIAN Adeline Andre Emergency Provider NURSE PRACTITIONER Turner Adams MD Admit Provider [facility] STAFF PHYSICIAN Attending Provider Discharge Potential Discharge Needs: PCP F/U Appt and Other ([facility] Anticipated Barriers to Discharge: None Identified Patient/Family Education Needs: Review discharge instructions, discuss Ask Me Three Transportation: Private vehicle Plan: Jeffrey is planning to discharge home when his constipation is resolved and his pain is better controlled. He will follow up with community providers and his discharge plan of care as directed. No new services are anticipated at this time. Pt will transport via private vehicle with friend. CM will follow. Social Determinants of Health Screening Social Determinants of health last assessed in clinic: 03/28/25 Will the Patient Participate in the Screening?: Yes Do you worry about having a steady place to live?: yes What is your living situation today?: I have housing today, but am worried about losing it Problems where you live: no known problems In the past 12 months, have you had to go without electric, gas, oil or water in your home?: no 1. Within the past 12 months, we worried whether our food would run out before we got money to buy more.: Never true 2. Within the past 12 months, the food we bought just didn't last and we didn't have money to get more.: Never true Has lack of transportation kept you from medical appointments or from doing things needed for daily living?: no Has anyone in your life made you feel unsafe or unsupported?: no How hard is it for you to pay for the very basics like food, housing, medical care, and heating? Would you say it is:: Not hard at all Do you want help finding or keeping work or a job?: I do not need or want help If for any reason you need help with day-to-day activities such as bathing, preparing meals, shopping, managing finances, etc., do you get the help you need?: I get all the help I need How often do you feel lonely or isolated from those around you?: Never Do you speak a language other than Japanese at home?: Yes Does the patient want assistance with any of the above?: No Comments: Swedish language at home. Health Related Social Needs Health related social needs: housing instability, housed, with risk of homelessness (Z59.811) and education (Z55.6) Health related social needs details: palliative and care mgt consult ordered. PFSH All Active Problems (Updated 03/28/25 @ 12:40 by Boubacar Phillips MD) Intractable pain (Acute) Nausea (Acute) 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) Constipation (Acute) Constipation (Acute) Chronic pain not due to malignancy (Acute) Long toenail (Acute) Pain in left foot (Acute) Chemotherapy-induced neuropathy (Acute) Pain in right foot (Acute) Hammertoe of right foot (Acute) Malignant neoplasm metastatic to bone (Acute) Essential hypertension (Acute) Coronary arteriosclerosis (Acute) Malignant tumor of prostate (Chronic) Spinal stenosis (Acute) Pressure injury of skin of sacral region (Acute) Severe protein-calorie malnutrition (Acute) Transient cerebral ischemia (Chronic) Spinal stenosis of lumbar region (Acute) Pulmonary hypertension (Acute) Pancytopenia (Acute) Sleep apnea, obstructive (Chronic) Mild cognitive disorder (Acute) Dyspnea on exertion (Acute) Bilateral pleural effusion (Acute) Benign prostatic hyperplasia (Chronic) Angina pectoris (Chronic) Acute and chronic respiratory failure with hypoxia (Acute) High risk medication use (Acute) Cancer related pain (Acute) Lumbar radiculitis (Acute) Medical History 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 Palliative care encounter GERD (gastroesophageal reflux disease) HTN (hypertension) Hyperlipidemia Stable angina Paroxysmal A-fib CAD (coronary artery disease) 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 Elevated alkaline phosphatase level Anemia TIA (transient ischemic attack) Abnormal weight loss Shingles Left sided sciatica Prostate cancer metastatic to bone Myalgia Memory impairment Fatigue Metastatic malignant neoplasm to prostate Surgical History S/P PTCA (percutaneous transluminal coronary angioplasty) Family History Mother Leukemia Other Adopted Social History Smoking/Tobacco Use Status: Former Tobacco Use Smoking risk assessment performed?: Yes Alcohol Intake: never Drug use: Never Substance use type: does not use Housing: house Number of Children: 2 What type of physical activity do you participate in: swimming and additional Details: Pool therapy Do you feel safe at home: Yes Do you feel safe in your relationship?: Yes Additional Social history: Former tobacco user: Quit 25 yrs ago
--- NOTE | 2025-03-28 08:37 | PCNE_ITS ---
Date of service: 03/28/25 Time of Service: 09:29 History of Present Illness Narrative: Jeffrey Treviño is a 79 yo man from [place], [place] with a history of Metastatic Prostate Cancer. He was admitted to [facility] yesterday with pain crisis and constipation. He had been followed in the past by Ariella Pratt NP of the palliative care team, but has not seen her in about 18 months (was scheduled for outpt CT appt tomorrow). Palliative care team consulted today to help with pain and other symptom management and explore goals of care. Issues today include: Pain control, constipation, weight loss Patient is a reluctant historian. He is quite uncomfortable the first time I visit and feels that my questions are intrusive and doesn't want to talk to me if I am hospice. I return later, and he is feeling a little better and willing to answer my questions, although he is still tangential. Additional hx from [facility] notes, [facility] [place] notes and discussion with Ariella Hall NP. #Prostate CA with bone mets: Hx from [facility] [place] notes -Initial dx 2017. Had bone mets at the time of diagnosis -Has been on and off hormonal therapy, immunotherapy. -Multiple courses of palliative radiation over the years for bone pain. -Pluvicto over this past winter with partial response. Complicated by moderate-severe anemia requiring transfusions. PSA actually went up. Decision made to stop. Chemotherapy felt not to be a candidate. Offered trial of abiratone and prednisone and he decided to do this. Note that as of March, his PSA was rapidly rising. -Started on abiratone in early February. However, he forgot to take the prednisone with the abiratone after the first week. Seems to be having worse back pain since starting this new regimen. Also constipation. -Imaging has shown varying small to moderate bilateral pleural effusions. - Radiation therapy: A new round on the new painful areas Was planned. He was supposed to be simulated yesterday but this was canceled when he was referred to the ED for pain crisis. Rescheduled simulation date currently April 03 -One previous ED visit about a week ago for the pain. Was prescribed Oxycodone for the first time in the last 12 months for the pain. Started taking once a day,. #Cancer Pain: -Prior to admission:Oxycodone 5mg was taken 1 pill once a day, occasional twice a day (VPMS says he was dispensed #10 on 03/23. Also got prescribed morphine (tramadol 50mg #20, as per [facility]) by ED doc. He felt that tramadol worked better. I didn't get a chance to take much of it. -Prednisone: started when he started with abiratone 4 weeks ago. He did forget to take it after a week, not sure why, he did continue the abiratone. So he has not taken the prednisone for the last 3 weeks. This is likely contributing to increased pain and vomiting. Pharmacist says that he has not had any prednisone or dexamethasone since arrival at [facility] yesterday . But is due to start oral prednisone 40mg daily starting this morning. Fentanyl 12 mcg patch started in ED last night. Pt thinks it was removed (I showed him where it was). He is not sure it is helpgin bone or back pain. NOt clear about whether the back and bone pain is bothering or abdominal pain from the constipation. He received total of 4 mg IC hydromorphone since admission to Med surg over the past 18 hours. #Constipation: Last BM 7 days ago. Had not been taking any senna or miralax on a regular basis. Got first dose miralax last night here at [facility]. Dose of Relistor last night at 6 PM. NO BM since. U #Weight Loss: -Weight actually STABLE over the past year -Weight down 11 kg from 18 months ago. Care Team: Primary Care physician: Dr. Turner Isaacs Oncology: Dr. Roy, [facility] Radiation Oncology: Dali Kathleen Social HX: Lives in [place], Marital Status: Shakira Treviño Occupation:Retired rail car repairman for non-profits. Children: Hobbies: Additional Services: Goals: Impression of currents health status: What bothers you the most: What worries you the most: Coping mechanisms: Current information preferences: Function: Ambulation: Should be using walker ADLs: iADLs: Hearing: Vision: Cognition: Falls: Driving: Palliative Performance Scale % Ambulation Activity and Evidence of Disease Self Care Intake Level of Consciousness 100 Full Normal activity, no evidence of disease Full Normal Full 90 Full Normal activity, some evidence of disease Full Normal Full 80 Full Normal activity with effort, some evidence of disease Full Normal or reduced Full 70 Reduced Unable to do normal work, some evidence of disease Full Normal or reduced Full 60 Reduced Unable to do hobby or some housework, significant disease Occasional assist necessary Normal or reduced Full or confusion 50 Mainly sit/lie Unable to do any work, extensive disease Considerable assistance required Normal or reduced Full or confusion 40 Mainly in bed Unable to do any work, extensive disease Mainly assistance Normal or reduced Full, drowsy, or confusion 30 Totally bed bound Unable to do any work, extensive disease Total care Reduced Full, drowsy, or confusion 20 Totally bed bound Unable to do any work, extensive disease Total care Minimal sips Full, drowsy, or confusion 10 Totally bed bound Unable to do any work, extensive disease Total care Mouth care only Drowsy or coma 0 - - - - Patient Score: Spiritual history: Palliative review of systems: Pain: Dyspnea: GI symptoms: Appetite: Depression: Anxiety: None Emotional Distress: Spiritual/Existential Distress: Labs: Cr: 1.2 Liver panel: AST/ALT NL, alk phos 289, albumin 2.6 Albumin: CBC: WBC 1.84, hgb 6.9, plts 58 Advanced Care Planning: Advanced Directive: NOne on file Health Care Agent: COLST: None on file. PT states full code. Limitations: NA; Not applicable NQ: Not Queried VPMS query: 03/23/2025 03/22/2025 03/23/2025 1 Oxycodone Hcl (Ir) 5 Mg Tablet 10. 00 2 Ch Bat [id number] [facility] ([id number]) 0 37.50 MME Medicare V T 03/14/2025 03/14/2025 03/14/2025 1 Tramadol Hcl 50 Mg Tablet 20.00 5 Ma Linus [id number] [facility] ([id number]) 0 40.00 MME Medicare [place] 01/26/2025 01/26/2025 01/26/2025 1 Zolpidem Tartrate 5 Mg Tablet 30.0 0 30 Ro Yessy [id number] [facility] ([id number]) Assessment and Plan Assessment and plan (1) Prostate cancer metastatic to bone: Status: Acute Assessment and plan: Prelim recommendations: 79 yo man with metastatic prostate cancer with diffuse bone mets. Pt is a fiercely independent gentleman who seems to have scant local support. He does not feels he needs any help and just hopes to go home after constipation is relieved. Family lives in [place]. Phone number we have for is disconnected. Today he is overwhelmed with sxs and feels he cannot think or talk about anything else. I note that he has failed multiple treatment regimens for his Prostate CA. This last trial of Abiratone and Prednisone, he forgot to take the prednisone after a week, which he understands is dangerous. HE is not willing to engage in any discussion regarding prognosis today. Ariella Hall NP (usual PCT provider) will meet with him today or tomorrow again at [facility]. Mr. Macias is li=ooking forward to seeing her again, although he confides to me that he is certain he will have gone home by then. PC with Ariella Hall NP of Palliative Care: he seems to dislike taking any medications that he absolutely does not haveto take and therefore usually never took any meds she reccomended, including pain meds and constipation meds. Reccomendations today: # Pain: Agree with Fentanyl patch 12. He has not requested many PRN doses of pain meds. But this is his pattern. He has not used any other opiods in the past year except i nthe past few weeks. Recommend: -Continued education from all staff members regarding the need to stay ahead of the pain, not let it get too far. -After discussion with Dr. Phillips, he will get an IV dose of steroids (Dex) today and then start on daily oral steroids . He should be educated on the role steroids can play in pain management. Oncology and Palliative Care typically use dexamethasone for bone met pain, but Prednisone for preventing mineralacorticoid excess (replacing glucocoticoids). This is Theoretical difference, and the Pain seems to be bigger issue currently. -Encourage PRN pain meds. However, if he does not accept PRN pain meds, will be harder to adjust long acting (is he more agreeable to LA patch?) -He should have the planned course of Palliative Radiation as soon as possible (unclear if one or more doses from Onc notes), as should help decrease pain as well. If he does decide to transition to hospice, would recommend that he have the radiation therapy first. #Constipation: His habit is to use a Cathartic only as needed. Cannot tell me name, Cleo[employer] brand. Continued education from all staff on the need to adhere to regular bowel regimen. I.e. miralax(started already) or senna, whatever dose daily titrated to have BM every 1-2 days. Hospitalist is trying another dose Relistor today. Encourage fluids. #Nausea: Steroids restarted today, should help. Compazine and odansetron as ordered. Once steroids back on board and constipation resolved, if still nauseous, could add olanzipine 2.5 HS if needed. #GOC: Challenging situation. This is patient has been declining and recent attempts at life prolonging treamtent have not resulted in decrease in sxs, PSA or increase in functioning. He has concerning pancytopenia. My impression is that he is likley in the final stage of his illness and unlikely to benefit from further attempts at life-prolonging treatment. However, patient has told me today that he is NOT interested in discussing GOC, because he is feeling so miserable from pain crisis and constipation. Palliative Care Team will begin to address this as his sxs are better controlled. Unclear if patient has a support system and it does not sound like he had any thoughts of what he would want to do if and when disease progressed and he needed more help. Pt seems to be somewhat estranged from and children, who live in [place]. He says he really does not have any friends. However, during my visit, a friend/neighbor arrives in his room to deliver his glasses! He then tells me that his ghotra neighbor helps him as well at times. Chart lists mild cognitive impairment; Ariella Hall, PCT PROCESSING MANAGER does not agree (personal communication). She feels he is more independently minded (i.e. declining to take recommended meds for pain) During his admission, CM and PCT will: -Begin to explore support system, health care agent and get them involved early in discussion if patient allows and tolerates. If he has a friend or family member he trusts, perhaps he would allow this person to participate in discussions (even by phone). No HCA on file. When I asked him who he would want to make decision s for him if he could not make them himself, he explained that he can make them himself. NOt wlling to discuss further today. -He does know and trust Ariella. She will see him in the next two days. He says he is looking forward to this. Although he is pretty sure he will feel better and be able to go home, perhaps even by this afternoon. (2) Cancer related pain: Status: Acute (3) Nausea: Status: Acute (4) Pancytopenia: Status: Acute Assessment and plan: 17 minutes spent today on Advance Care Planning. Patient and family participated voluntarily. Advance care planning may include (not limited to) explanation and discussion of advance directives, choosing and appointing healthcare agents, alternatives to various ACP tools, discussion of (and if indicated, completion of) COLST form, discussion of patient's values and overall goals for treatment, palliative and disease directive care options, ways to avoid hospital readmission including hospice discussions, care preferences should the patient's several other adverse health events.See today's palliative care note for additional information. This note was dictated using speech recognition software. Attempt was made at proofreading, but errors may be present. Please call with questions. PFSH All Active Problems (Updated 03/28/25 @ 12:40 by Boubacar Phillips MD) Intractable pain (Acute) Nausea (Acute) 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) Constipation (Acute) Constipation (Acute) Chronic pain not due to malignancy (Acute) Long toenail (Acute) Pain in left foot (Acute) Chemotherapy-induced neuropathy (Acute) Pain in right foot (Acute) Hammertoe of right foot (Acute) Malignant neoplasm metastatic to bone (Acute) Essential hypertension (Acute) Coronary arteriosclerosis (Acute) Malignant tumor of prostate (Chronic) Spinal stenosis (Acute) Pressure injury of skin of sacral region (Acute) Severe protein-calorie malnutrition (Acute) Transient cerebral ischemia (Chronic) Spinal stenosis of lumbar region (Acute) Pulmonary hypertension (Acute) Pancytopenia (Acute) Sleep apnea, obstructive (Chronic) Mild cognitive disorder (Acute) Dyspnea on exertion (Acute) Bilateral pleural effusion (Acute) Benign prostatic hyperplasia (Chronic) Angina pectoris (Chronic) Acute and chronic respiratory failure with hypoxia (Acute) High risk medication use (Acute) Cancer related pain (Acute) Lumbar radiculitis (Acute) Medical History 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 Palliative care encounter GERD (gastroesophageal reflux disease) HTN (hypertension) Hyperlipidemia Stable angina Paroxysmal A-fib CAD (coronary artery disease) 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 Elevated alkaline phosphatase level Anemia TIA (transient ischemic attack) Abnormal weight loss Shingles Left sided sciatica Prostate cancer metastatic to bone Myalgia Memory impairment Fatigue Metastatic malignant neoplasm to prostate Surgical History S/P PTCA (percutaneous transluminal coronary angioplasty) Family History Mother Leukemia Other Adopted Social History Smoking/Tobacco Use Status: Former Tobacco Use Smoking risk assessment performed?: Yes Alcohol Intake: never Drug use: Never Substance use type: does not use Housing: house Number of Children: 2 What type of physical activity do you participate in: swimming and additional Details: Pool therapy Do you feel safe at home: Yes Do you feel safe in your relationship?: Yes Additional Social history: Former tobacco user: Quit 25 yrs ago Results Last Vital Signs Temp 36.9 C 03/28/25 04:23 Pulse 95 H 03/28/25 04:23 Resp 19 03/28/25 04:23 BP 125/72 03/28/25 04:23 Pulse Ox 100 03/28/25 04:23 Labs 03/28/25 06:49 03/28/25 06:49 Labs: Laboratory Results - last 24 hr 03/27/25 03/27/25 03/28/25 16:10 16:20 06:49 WBC 3.11 L 1.84 L* RBC 2.53 L 2.14 L Hgb 8.0 L 6.9 L* Hct 23.2 L 19.6 L* MCV 92 92 MCH 31.6 32.2 MCHC 34.5 35.2 RDW 15.8 H 15.7 H Plt Count 70 L 58 L MPV 9.4 9.3 Immature Gran % 0.3 0.5 Neutrophils % 67.3 63.7 Lymphocytes % 18.0 19.0 Monocytes % 12.5 15.2 Eosinophils % 1.3 1.1 Basophils % 0.6 0.5 Nucleated RBC % 0.0 0.0 Absolute Neutrophils 2.09 1.17 L Absolute Lymphocytes 0.56 L 0.35 L Absolute Monocytes 0.39 0.28 Absolute Eosinophils 0.04 0.02 Absolute Basophils 0.02 0.01 RBC Morphology See Below Normal Hypochromasia 2+ VBG Lactate 1.0 Sodium 135 L 140 Potassium 3.3 L 3.1 L Chloride 101 105 Carbon Dioxide 26.8 27.7 Anion Gap 7.2 7.3 BUN 20 H 17 Creatinine 1.3 1.2 Est GFR (CKD-EPI 2020) 56.23 61.90 Glucose 86 91 Calcium 9.0 9.0 Total Bilirubin 0.6 0.6 AST 41 H 34 ALT 16 15 L Alkaline Phosphatase 331 H 289 H Total Protein 6.2 L 5.3 L Albumin 3.1 L 2.6 L Urine Color Yellow Urine Clarity Clear Urine pH 5.5 Ur Specific [place] 1.010 Urine Protein Trace Urine Ketones Negative Urine Blood Small H Urine Nitrite Negative Urine Bilirubin Negative Urine Urobilinogen 0.2 Ur Leukocyte Esterase Negative Urine RBC 3-5 H Urine WBC Negative Ur Epithelial Cells Negative Urine Crystals Negative Urine Bacteria Negative Urine Casts Negative Urine Mucus Negative Ur Culture Indicated? No Urine Glucose Negative Time Spent Time Spent with Patient Time Spent(min): 75
[2025-03-28 09:08] VITALS: O2SAT 99
[2025-03-28] MEDS: Ondansetron 4 MG/2 ML VIAL IVP ×2 (09:16→18:18)
[2025-03-28] MEDS: predniSONE 20 MG TAB 40 MG PO (10:21)
[2025-03-28] MEDS: Gabapentin 300 MG CAP PO ×2 (10:21→20:27)
[2025-03-28] MEDS: Potassium Chloride 20 MEQ TABCR PO (10:21)
[2025-03-28] MEDS: Enoxaparin 40 MG/0.4 ML SYR SC (10:21)
[2025-03-28] MEDS: Normal Saline Flush 10 ML SYR IVP (11:12)
[2025-03-28] MEDS: Dexamethasone 10 MG/ML VIAL 6 MG IVP (11:13)
--- NOTE | 2025-03-28 12:33 | W.PM.PROGNOT ---
Date of Service Date of service: 03/28/25 Time of Service: 12:34 Assessment and Plan Assessment and plan (1) Intractable pain: Status: Acute Assessment and plan: -secondary to wildly metastatic prostate cancer to the spine and cranial bones -had been on fent patch 12mcg daily, and only recently given PO oxy though patient has been reluctant to use pain meds at home -appreciate Palliative assistance in discussing pain regimen with patient (2) Malignant tumor of prostate: Status: Chronic Assessment and plan: -Patient is currently getting radiation therapy for an attempt to control his pain and is on abiraterone (3) Constipation: Status: Acute Assessment and plan: -Will add relistor 2/2 opioid use in the outpatient setting -continue senna, Mg citrate, PRN suppository and enema (4) Severe protein-calorie malnutrition: Status: Acute Assessment and plan: -Plan to consult dietary in the a.m. (5) Pancytopenia: Status: Acute Assessment and plan: -likely secondary to metastatic prostate CA and radiation therapy -WBC 3.1->1.8, Hb 8->6.9, platelets 70-58, may also been worsened by IV fluids on admission -will repeat CBC in AM (6) Malignant neoplasm metastatic to bone: Status: Acute Assessment and plan: -as noted above (7) Palliative care encounter: Assessment and plan: -appreciate Palliative Care recommendations Subjective Subjective Interval history since last seen: Patient states that he is doing a little better, but continues to be concerned about his constipation and ongoing back pain from his metastatic prostate disease. Exam Narrative Exam Narrative: well appearing older gentleman laying in bed in no acute distress, AOx4, heart RRR, lungs CTAB, abdomen distended with mild diffuse tenderness throughout but without guarding or rebound Objective Last Vital Signs Temp 98.4 F 03/28/25 04:23 Pulse 95 H 03/28/25 04:23 Resp 19 03/28/25 04:23 BP 125/72 03/28/25 04:23 Pulse Ox 99 03/28/25 09:08 Laboratory Results - last 24 hr 03/27/25 03/27/25 03/28/25 16:10 16:20 06:49 WBC 3.11 L 1.84 L* RBC 2.53 L 2.14 L Hgb 8.0 L 6.9 L* Hct 23.2 L 19.6 L* MCV 92 92 MCH 31.6 32.2 MCHC 34.5 35.2 RDW 15.8 H 15.7 H Plt Count 70 L 58 L MPV 9.4 9.3 Immature Gran % 0.3 0.5 Neutrophils % 67.3 63.7 Lymphocytes % 18.0 19.0 Monocytes % 12.5 15.2 Eosinophils % 1.3 1.1 Basophils % 0.6 0.5 Nucleated RBC % 0.0 0.0 Absolute Neutrophils 2.09 1.17 L Absolute Lymphocytes 0.56 L 0.35 L Absolute Monocytes 0.39 0.28 Absolute Eosinophils 0.04 0.02 Absolute Basophils 0.02 0.01 RBC Morphology See Below Normal Hypochromasia 2+ VBG Lactate 1.0 Sodium 135 L 140 Potassium 3.3 L 3.1 L Chloride 101 105 Carbon Dioxide 26.8 27.7 Anion Gap 7.2 7.3 BUN 20 H 17 Creatinine 1.3 1.2 Est GFR (CKD-EPI 2020) 56.23 61.90 Glucose 86 91 Calcium 9.0 9.0 Total Bilirubin 0.6 0.6 AST 41 H 34 ALT 16 15 L Alkaline Phosphatase 331 H 289 H Total Protein 6.2 L 5.3 L Albumin 3.1 L 2.6 L Urine Color Yellow Urine Clarity Clear Urine pH 5.5 Ur Specific [place] 1.010 Urine Protein Trace Urine Ketones Negative Urine Blood Small H Urine Nitrite Negative Urine Bilirubin Negative Urine Urobilinogen 0.2 Ur Leukocyte Esterase Negative Urine RBC 3-5 H Urine WBC Negative Ur Epithelial Cells Negative Urine Crystals Negative Urine Bacteria Negative Urine Casts Negative Urine Mucus Negative Ur Culture Indicated? No Urine Glucose Negative Time Spent with Patient Time Spent with Patient: >50 minutes Time was spent: preparing to see the patient(eg.review tests), obtaining and/or reviewing separately otained hiistory, ordering medications,tests, procedures, referring, communicating with other health restorative care technician, indepentently interpreting results, counseling the patient and care coordination
--- NOTE | 2025-03-28 13:18 | CHAPLAIN ---
Jeffrey was resting in bed when I visited. When I explained who I was, he showed me his cross necklace and explained that he's worked with different denominations for many years. 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 He said he currently was dealing with a stomach ache. Jeffrey identified God has his primary support. When I asked about supportive people locally, he said he has several friends. He lives in [place]. Today Dr. Anderson from Palliative Care met with Jeffrey and Ariella Yuan NP, from will follow up with him tomorrow. I will continue to visit.
[2025-03-28] MEDS: Lactulose 20 GM/30 ML CUP 10 GM PO (13:43)
[2025-03-28] MEDS: Bisacodyl 10 MG SUPP PR (13:47)
[2025-03-28] MEDS: oxyCODONE 5 MG TAB PO (18:18)
[2025-03-28] MEDS: Acetaminophen 325 MG TAB PO (18:18)
[2025-03-28] MEDS: Milk of Magnesia 30 ML CUP PO (18:19)
[2025-03-28] MEDS: Senna TAB 2 TAB PO (18:19)
[2025-03-28 21:11] VITALS: BP 139/67; PULSE 92; RESP 20; TEMP 36.6; O2SAT 94
[2025-03-29 07:58] VITALS: BP 143/65; PULSE 86; RESP 16; TEMP 36.2; O2SAT 98
--- NOTE | 2025-03-29 08:39 | CMPROGNOTE_ITS ---
Date of service: 03/29/25 Time of Service: 08:39 Care Management Progress Note Progress Note Text Progress Note Text: Jeffrey was sitting on the side of his bed when CM met with him; he was pleasant and engaged well in conversation. He is being treated for cancer related pain and has gone approx. 8 days without a BM. He had a good interaction with Ariella from Palliative today and plans to meet with her again tomorrow. Jeffrey is planning to discharge home when he is medically able. He worked with PT today and they recommend resumption of outpatient PT services. CM will continue to follow. Discharge Potential Discharge Needs: PCP F/U Appt and Other (Oncology at [facility] [place]) Anticipated Barriers to Discharge: None Identified Patient/Family Education Needs: Review discharge instructions, discuss Ask Me Three Transportation: Private vehicle Plan: Jeffrey is planning to discharge home when his constipation is resolved and his pain is better controlled. He will follow up with community providers and his discharge plan of care as directed. No new services are anticipated at this time. Pt will transport via private vehicle with friend. CM will follow. Social Determinants of Health Screening Social Determinants of health last assessed in clinic: 03/29/25 Will the Patient Participate in the Screening?: Yes Do you worry about having a steady place to live?: yes What is your living situation today?: I have housing today, but am worried about losing it Problems where you live: no known problems In the past 12 months, have you had to go without electric, gas, oil or water in your home?: no 1. Within the past 12 months, we worried whether our food would run out before we got money to buy more.: Never true 2. Within the past 12 months, the food we bought just didn't last and we didn't have money to get more.: Never true Has lack of transportation kept you from medical appointments or from doing things needed for daily living?: no Has anyone in your life made you feel unsafe or unsupported?: no How hard is it for you to pay for the very basics like food, housing, medical care, and heating? Would you say it is:: Not hard at all Do you want help finding or keeping work or a job?: I do not need or want help If for any reason you need help with day-to-day activities such as bathing, preparing meals, shopping, managing finances, etc., do you get the help you need?: I get all the help I need How often do you feel lonely or isolated from those around you?: Never Do you speak a language other than Maltese at home?: Yes Does the patient want assistance with any of the above?: No Comments: Macedonian language at home. Health Related Social Needs Health related social needs: housing instability, housed, with risk of homelessness (Z59.811) and education (Z55.6) Health related social needs details: palliative and care mgt consult ordered.
[2025-03-29 08:40] LABS: HGB 7.1 g/dL (13.5-17.5); MCH 31.7 pg (27.0-33.0); MCHC 34.3 % (32.0-36.0); MCV 92 fL (80-95); MPV 9.2 fL (8.0-11.0); RBC 2.24 10^6/uL (4.36-5.78); RDW 15.8 % (11.8-14.1); RDW-SD 52.5 fL; WBC 2.93 10^3/uL (4.4-10.8)
[2025-03-29 09:05] LABS: HCT 20.7 % (40.0-50.0)
[2025-03-29 09:06] LABS: Platelet Count 69 10^3/uL (130-400)
[2025-03-29] MEDS: Normal Saline Flush 10 ML SYR IVP ×2 (10:11→19:53)
[2025-03-29] MEDS: HYDROmorphone 2 MG/ML SYR IVP ×2 (10:14→19:51)
[2025-03-29] MEDS: Normal Saline 1,000 ML 125 ML IV ×2 (10:16→18:43)
[2025-03-29] MEDS: Docusate Sodium 100 MG CAP PO (10:19)
[2025-03-29] MEDS: predniSONE 20 MG TAB 40 MG PO (10:19)
[2025-03-29] MEDS: Potassium Chloride 20 MEQ TABCR PO (10:19)
[2025-03-29] MEDS: Gabapentin 300 MG CAP PO ×2 (10:19→19:52)
[2025-03-29] MEDS: Senna TAB 2 TAB PO (10:20)
--- NOTE | 2025-03-29 11:22 | PCPN_ITS ---
Date of service: 03/29/25 Time of Service: 11:23 Assessment and Plan Assessment and plan (1) Intractable pain: Status: Acute Assessment and plan: Fentanyl patch 12 mcg/hr started in ED. He notes improvement in his pain but still experiencing significant pain with activity. Monitor, consider increase in Fentanyl patch but he will need to have BM first to determine how much pain is associated with constipation. (2) Malignant tumor of prostate: Status: Chronic Assessment and plan: -Patient is currently getting radiation therapy for an attempt to control his pain and is on abiraterone and prednisone but he has not been taking the prednisone at home. (3) Constipation: Status: Acute Assessment and plan: He reports 7 days with no BM. Bowel medications ordered. He will need to move his bowels before discharge. (4) Severe protein-calorie malnutrition: Status: Acute Assessment and plan: He has lost 30# over the last 18 months when he was last seen by Palliative care. (5) Pancytopenia: Status: Acute Assessment and plan: -likely secondary to metastatic prostate CA and radiation therapy He is receiving routine lab draws and blood transfusions outpatient. (6) Malignant neoplasm metastatic to bone: Status: Acute Assessment and plan: -as noted above (7) Palliative care encounter: Assessment and plan: Jeffrey is a very pleasant 79 year old man with prostate cancer widely metastatic to bones. His oncologist discussed life expectancy of 6-9 months with him. He states he does not feel like he is dying. He lives alone but has a friend that helps him frequently (Nico). His and daughter live in [place] and another daughter in [place]. His pain appears to be under better control. Once he moves his bowels, we can determine if he needs increased patch dose. He is getting routine labs and blood transfusion PRN as outpatient. He plans to go to [place] to visit family in July. He believes he will be able to despite the prognosis given by oncology. He stopped seeing Palliative care about 18 months ago. He said this was due to thinking Palliative was hospice. Reviewed the similarities and differences with hospice and palliative. He plans to continue cancer treatment and palliative radiation for pain control at this point. Palliative will continue to follow while inpatient and after discharge home. Subjective Subjective Interval history since last seen: Jeffrey was seen in his hospital room for Palliative f/u. He was seen yesterday by Dr. Anderson yesterday but did not really engage in visit. He was previously followed by Palliative care but has not been seen for about 18 months because he did not feel he needed it. He presented to the ED 2 days ago from the cancer center with intractable pain and constipation. In the ED, he was started on fentanyl patch 12 mcg/hr. He continues to have a feeling of weakness in his back, which is how he describes his pain. Nursing assisted him to the chair just prior to the visit. He reports increased pain with activity. He has not asked for PRN pain meds very frequently. He is eating small amount. He has lost weight since he was seen about 18 months ago. He has not moved his bowels x7 or 8 days per his report. He appears weaker and more frail. He has not worked with PT yet. He acknowledges that oncology told him that he likely have a life expectancy of 6-9 months but he states he has no concept of dying right now despite this. He is currently getting labs drawn regularly and receiving blood transfusions as needed. His Hgb is low at 7.1 today. He plans to go to [place] to see his and daughter in July. He again brings up the life expectancy that was discussed with oncology but states he still thinks he will be able to drive there. He also reports that he was in [facility] fairly recently and they told him he needed to go on hospice. He did not agree to hospice at that time. Since then, he has allowed his friend, Nico to help him. Nico is willing to do more as needed. Did not discuss his family's willingness to help today. Exam Narrative Exam Narrative: General: Very pleasant, pale, elderly man. Appears to have lost weight since last visit. He was sitting in the recliner in his hospital room. He engages in visit and answers questions appropriately, talkative. HEENT: normocephalic, atraumatic, EOMI, mmm neck: supple respiratory: respirations appear even and unlabored at rest and with talking. Ext: moves all 4 extremities freely. Objective Last Vital Signs Temp 36.2 C L 03/29/25 07:58 Pulse 86 03/29/25 07:58 Resp 16 03/29/25 07:58 BP 143/65 H 03/29/25 07:58 Pulse Ox 98 03/29/25 07:58 Laboratory Results - last 24 hr 03/29/25 08:20 WBC 2.93 L RBC 2.24 L Hgb 7.1 L Hct 20.7 L* MCV 92 MCH 31.7 MCHC 34.3 RDW 15.8 H Plt Count 69 L MPV 9.2
[2025-03-29] MEDS: Enoxaparin 40 MG/0.4 ML SYR SC (11:38)
[2025-03-29] MEDS: Ondansetron 4 MG/2 ML VIAL IVP (13:26)
--- NOTE | 2025-03-29 14:57 | IN_ITS ---
PT Notes Visit Reasons: Intractable Pain Physical Therapy Inpatient Initial Evaluation Date: 03/29/2025 Referring Doctor: Dr. Phillips PT Orders: PT CONSULT: PT evaluation and treatment Precautions: Standard, fall risk, IV access right upper extremity, Patient Profile/Admitting Diagnosis: Patient is a 79-year-old male presented to the ED with increased abdominal and low back pain. Patient with history of metastatic prostate cancer with mets to thoracic spine, ribs and calvarium. Chest CT revealed multi blastic mets to sternum rib cage thoracic spine, moderate pleural effusion and constipation. PMHX: Chronic pain not due to malignancy (Acute) Long toenail (Acute) Pain in left foot (Acute) Chemotherapy-induced neuropathy (Acute) Pain in right foot (Acute) Hammertoe of right foot (Acute) Malignant neoplasm metastatic to bone (Acute) Essential hypertension (Acute) Coronary arteriosclerosis (Acute) Malignant tumor of prostate (Chronic) Spinal stenosis (Acute) Pressure injury of skin of sacral region (Acute) Severe protein-calorie malnutrition (Acute) Transient cerebral ischemia (Chronic) Spinal stenosis of lumbar region (Acute) Pulmonary hypertension (Acute) Pancytopenia (Acute) Sleep apnea, obstructive (Chronic) Mild cognitive disorder (Acute) Dyspnea on exertion (Acute) Bilateral pleural effusion (Acute) Benign prostatic hyperplasia (Chronic) Angina pectoris (Chronic) Acute and chronic respiratory failure with hypoxia (Acute) High risk medication use (Acute) Cancer related pain (Acute) Lumbar radiculitis (Acute) Medical History 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Palliative care encounter GERD (gastroesophageal reflux disease) HTN (hypertension) Hyperlipidemia Stable angina Paroxysmal A-fib CAD (coronary artery disease) 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 Patient independent ambulation, ADLs, home management, medication management, finances. Patient drives does his own shopping. Equipment Owned/DME: None Subjective: Patient reports he is having less pain but still has not been able to move his bowels. He is hopeful he will be able to go home after he has had a bowel movement. Pt reports he is participating in outpatient PT at [facility] for his back pain Objective: [] General Observation: Male semireclined in bed IV fluids infusing Mental Status: Alert and oriented x 4, cooperative, able to follow instructions, agreeable to participate in eval Pain: Back ---Patient reported pain is manageable . Patient declined to offer a number for numeric pain scale ROM: [] Right Upper Extremity: WFL Left Upper Extremity: WFL Right Lower Extremity: WFL Left Lower Extremity: WFL Strength: No resistance d/t known bone mets Right Upper Extremity: grossly >/= to 3/5 Left Upper Extremity: grossly >/= to 3/5 Right Lower Extremity:grossly >/= to 3/5 Left Lower Extremity: grossly >/= to 3/5 Sensation: intact to touch and pressure impaired proprioception and kinesthetic awareness B ankles Bed Mobility/Transfers: [] Supine to sit independent Sit to stand independent Stand to sit independent Bed to chair supervision Gait: CGA ambulating 125 feet pushing IV pole with RUE reciprocal pattern. pt required use of IV pole for stability Stairs: pt declined to attempt on assessment stating he will do them tomorrow. Balance: [] Static Sitting: Normal Dynamic Sitting: Good Static Standing: Good Dynamic Standing: Fair + Special Tests: [] Mobility Limitations Standardized Measure [] [facility] AM-PAC 6 clicks Basic Mobility Inpatient Short Form: [] Raw Score: 23 CMS Score: 11.20% Informed Consent/Education: Patient instructed in purpose of PT consult. Assessment: Patient is a 79yo male who presents with clinical signs and symptoms consistent with current/admitting diagnoses that have resulted to mobility limitations, gait instability, generalized weakness, and impairment of motor control as demonstrated by the following impairment level findings: 1. Decreased strength to BLE major muscle groups 2. Impaired standing balance 3. impaired functional activity tolerance 4. pain in back Impairments are contributing to the following functional limitations: 1. Inability to safely ambulate without assistive device 2. Increase completion time for mobility ADL performance 3. Increased fall risk 4. difficulty performing stairs without support Patient is assessed as a moderate complexity based on the following: History:79-year-old male with impairment level findings, functional limitations, and past medical history as indicated above Examination: Demonstrable impairment in strength, balance, and mobility level with underlying impairments and functional limitations as documented above Presentation: evolving Decision Making: moderate Goals: 1. Independent ambulation with LRD vs no device 150 feet x 2 without increased pain 2. independent 5 steps with rail to safely enter and exit home without increased pain Plan of Care/Treatment Plan: 1-2x/day, 7 days/week x 1 week. Plan of care has been reviewed with the [employer] DEVELOPER providing the service under Physical Therapy direction. Initiate Physical Therapy intervention for strengthening, bed mobility, transfers, gait, stairs, balance training, use of assistive device. DISCHARGE RECOMMENDATIONS: Home with return to Outpatient PT TREATMENT CODE/TIME: 77606/ [id number] Thank you for the opportunity to participate in the care of this patient. Gay Hughes PT [facility]
--- NOTE | 2025-03-29 16:46 | W.PM.PROGNOT ---
Date of Service Date of service: 03/29/25 Time of Service: 16:46 Assessment and Plan Assessment and plan (1) Intractable pain: Status: Acute Assessment and plan: -secondary to wildly metastatic prostate cancer to the spine and cranial bones -had been on fent patch 12mcg daily, and only recently given PO oxy though patient has been reluctant to use pain meds at home -appreciate Palliative assistance in discussing pain regimen with patient; plan to have final reassessment of pain regimen once patient is no longer constipated, eliminating that variable in his level of pain (2) Malignant tumor of prostate: Status: Chronic Assessment and plan: -Patient is currently getting radiation therapy for an attempt to control his pain and is on abiraterone (3) Constipation: Status: Acute Assessment and plan: -Will add relistor 2/2 opioid use in the outpatient setting -continue senna, Mg citrate, as needed suppository, patient accepting of enema this afternoon 03/29/2025 (4) Severe protein-calorie malnutrition: Status: Acute Assessment and plan: -Plan to consult dietary in the a.m. (5) Pancytopenia: Status: Acute Assessment and plan: -likely secondary to metastatic prostate CA and radiation therapy -WBC 3.1->1.8, Hb 8->6.9, platelets 70-58, may also been worsened by IV fluids on admission -will repeat CBC in AM (6) Malignant neoplasm metastatic to bone: Status: Acute Assessment and plan: -as noted above (7) Palliative care encounter: Assessment and plan: -appreciate Palliative Care recommendations Subjective Subjective Interval history since last seen: Patient states that overall his pain is somewhat improved but he remains constipated would like to have a bowel movement, and has been working with nursing staff with his as needed regimen. Exam Narrative Exam Narrative: well appearing older gentleman laying in bed in no acute distress, AOx4, heart RRR, lungs CTAB, abdomen distended with mild diffuse tenderness throughout but without guarding or rebound Objective Last Vital Signs Temp 97.2 F L 03/29/25 07:58 Pulse 86 03/29/25 07:58 Resp 16 03/29/25 07:58 BP 143/65 H 03/29/25 07:58 Pulse Ox 98 03/29/25 07:58 Laboratory Results - last 24 hr 03/29/25 08:20 WBC 2.93 L RBC 2.24 L Hgb 7.1 L Hct 20.7 L* MCV 92 MCH 31.7 MCHC 34.3 RDW 15.8 H Plt Count 69 L MPV 9.2 Time Spent with Patient Time Spent with Patient: >50 minutes Time was spent: preparing to see the patient(eg.review tests), obtaining and/or reviewing separately otained hiistory, ordering medications,tests, procedures, referring, communicating with other health animal caretaker supervisor, indepentently interpreting results, counseling the patient and care coordination
--- NOTE | 2025-03-29 17:10 | CHAPLAIN ---
Jeffrey was resting in bed when I visited. He had a friend visiting with him. He told me that he is still waiting to have a bowel movement which he hopes will reduce his stomach pain. He asked for a cup of coffee which I got for him. He asked me to check in with him tomorrow. 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 He is not affiliated with any evangelical or denomination.
[2025-03-29] MEDS: Mineral Oil-Enema 133 ML BTL PR (17:11)
[2025-03-29] MEDS: Lactulose 20 GM/30 ML CUP 10 GM PO (17:12)
[2025-03-29] MEDS: Milk of Magnesia 30 ML CUP PO (17:12)
[2025-03-29 19:31] VITALS: BP 130/72; PULSE 79; RESP 19; TEMP 36.9; O2SAT 97
[2025-03-30] MEDS: Ondansetron 4 MG/2 ML VIAL IVP (00:27)
[2025-03-30] MEDS: Normal Saline 1,000 ML 125 ML IV ×3 (01:36→19:53)
[2025-03-30] MEDS: Zolpidem 5 MG TAB PO ×2 (01:58→19:23)
[2025-03-30 08:16] VITALS: BP 172/70; PULSE 82; RESP 16; TEMP 36.1; O2SAT 94
--- NOTE | 2025-03-30 08:49 | CMPROGNOTE_ITS ---
Date of service: 03/30/25 Time of Service: 08:49 Care Management Progress Note Progress Note Text Progress Note Text: Jeffrey was sitting on the side of his bed when CM met with him; he was pleasant and engaged well in conversation. He had a BM today and has been out of bed to ambulate with PT in the evans. He is planning to meet with Ariella from [facility] this afternoon and still planning to discharge home when he is medically able. Resumption of outpatient PT is recommended. CM will continue to follow. Discharge Potential Discharge Needs: Consult Anticipated Barriers to Discharge: None Identified Patient/Family Education Needs: Review discharge instructions, discuss Ask Me Three Transportation: Private vehicle Plan: Jeffrey is planning to discharge home when his constipation is resolved and his pain is better controlled. He will follow up with community providers and his discharge plan of care as directed. No new services are anticipated at this time. Pt will transport via private vehicle with friend. CM will follow. Social Determinants of Health Screening Social Determinants of health last assessed in clinic: 03/30/25 Will the Patient Participate in the Screening?: Yes Do you worry about having a steady place to live?: yes What is your living situation today?: I have housing today, but am worried about losing it Problems where you live: no known problems In the past 12 months, have you had to go without electric, gas, oil or water in your home?: no 1. Within the past 12 months, we worried whether our food would run out before we got money to buy more.: Never true 2. Within the past 12 months, the food we bought just didn't last and we didn't have money to get more.: Never true Has lack of transportation kept you from medical appointments or from doing things needed for daily living?: no Has anyone in your life made you feel unsafe or unsupported?: no How hard is it for you to pay for the very basics like food, housing, medical care, and heating? Would you say it is:: Not hard at all Do you want help finding or keeping work or a job?: I do not need or want help If for any reason you need help with day-to-day activities such as bathing, preparing meals, shopping, managing finances, etc., do you get the help you need?: I get all the help I need How often do you feel lonely or isolated from those around you?: Never Do you speak a language other than [place]arag[place] at home?: Yes Does the patient want assistance with any of the above?: No Comments: Macedonian language at home. Health Related Social Needs Health related social needs: housing instability, housed, with risk of homelessness (Z59.811) and education (Z55.6) Health related social needs details: palliative and care mgt consult ordered.
[2025-03-30] MEDS: Docusate Sodium 100 MG CAP PO (09:52)
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
[2025-03-30] MEDS: Gabapentin 300 MG CAP PO ×2 (09:53→19:23)
[2025-03-30] MEDS: predniSONE 20 MG TAB 40 MG PO (09:53)
[2025-03-30] MEDS: Enoxaparin 40 MG/0.4 ML SYR SC (09:53)
[2025-03-30] MEDS: Potassium Chloride 20 MEQ TABCR PO (09:53)
[2025-03-30] MEDS: Senna TAB 2 TAB PO (09:53)
[2025-03-30] MEDS: Lactulose 20 GM/30 ML CUP 10 GM PO (09:54)
[2025-03-30] MEDS: Milk of Magnesia 30 ML CUP PO (09:54)
--- NOTE | 2025-03-30 11:03 | PT.INTREAT ---
PT Notes Visit Reasons: Intractable Pain Inpatient Physical Therapy Treatment Note [facility] Date: 03/30/2025 PRECAUTIONS:Fall risk SUBJECTIVE: Pt states he feels better but still has not been able to have a BM. OBJECTIVE: Pt presented supine in bed ? PAIN: Pt reports abdomen feels like it is bubbling Therapeutic Activities (24190): Direct one-on-one instruction in dynamic activities to improve functional performance. ? functional transfers on off shower seat, chair , bed independent Facilitated safe and correct performance of level surface ambulation covering a distance of 200 feet x2 without device with CGA/SBA. Pt preference to hold hands behind his back. Did not report of any increased pain. Denied headache, chest pain, and lightheadedness throughout activity. Intermittent verbal cueing provided for posture and stand rest. Pt deviations forward flexed trunk, increased WB through heels wide ANDRE. --As pt increased speed of brissa improved stability noted. Neuromuscular Re-education ([id number]): Activities that facilitate re-education of movement balance, posture, coordination, and proprioception or kinesthetic sense, requiring skilled tactile and verbal cues - pt dynamic sit balance including item retrieval from floor , donning socks without UE support seated at 17 height -Pt dynamic stand with 1 UE support SL for pant and footwear adjustment. -Pt static stand for self care grooming tasks at sink with 1 sit rest d/t report of pain in abdomen ASSESSMENT:?Pt tolerated session well. He progressed to ambulation without device however noted increased instability. Pt does not want to use a FWW if he does not have to. Pt preference to ambulate with BUE behind his back therefore limited use of BUE for balance reactions. Pt also limited by neuropathy B feet. Pt fatigued after shower requesting to do stairs in the afternoon. PLAN: 1-2x/day, 7 days/week x 1 week. Plan of care has been reviewed with the [employer]OM[employer] COACH providing the service under Physical Therapy direction. Initiate Physical Therapy intervention for strengthening, transfers, gait, stairs, balance training, use of assistive device as indicated. TREATMENT CODE/TIME: 97183,[id number], [id number] DISCHARGE RECOMMENDATION: Home with resumption of outpatient PT
[2025-03-30] MEDS: Methylnaltrexone 12 MG/0.6 ML VIAL SC ×2 (11:35)
[2025-03-30] MEDS: oxyCODONE 5 MG TAB PO (12:14)
--- NOTE | 2025-03-30 13:25 | PT.INTREAT ---
PT Notes Visit Reasons: Intractable Pain Inpatient Physical Therapy Treatment Note [facility] Date: 03/30/2025 PRECAUTIONS: Fall. Standard. Activity as tolerated. SUBJECTIVE: Delighted that he has had 2 bowel movement since this morning. Agreeable to working with PT this afternoon. Declined to use front-wheeled walker. OBJECTIVE: Patient was finishing up in the bathroom when PT came in. ? PAIN: None reported GAIT: Facilitated safe and correct performance of level surface ambulation covering a distance of 200 feet + 200 feet with stand by assist while holding onto IV pole with one hand on the way to the PT room. Walked half of the way going back to his room without holding onto anything with hands on his back with no loss of balance. THERA ACT: Worked on increasing B LE strength and safe mobility performance doing sit<>stand at edge of treatment plinth in PT room for 2 sets of 5 reps. Minimal complaint of back pain exacerbation reported that resolved with activity cessation. ASSESSMENT:? Much improved mobility level performance and independence after having finally have had bowel movements. Patient has been able to walk unassisted with no report of back pain up to about 100 feet at a time. This will enable him to manage indoor ambulation without assistive device and without exacerbating his chronic low back pain. PLAN: Recommend resumption of OP PT for balance training and fall reduction. DISCHARGE RECOMMENDATION: Home with resumption of outpatient PT TREATMENT CODE/TIME: 62570 x 33 minutes for 2 units (13:25-13:58)).
--- NOTE | 2025-03-30 14:16 | PHA.REVIEW2 ---
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) Constipation (Acute) Malignant neoplasm metastatic to bone (Acute) Severe protein-calorie malnutrition (Acute) Pancytopenia (Acute) Cancer related pain (Acute) No Known Allergies Allergy (Verified 03/27/25 15:35) Resuscitation Status Full Code Height 6 ft Weight 75.7 kg Comments Comments/Follow Ups: Per provider waiting on BM before discharging Pharmacy Admission Review Renal Dosing Renal Dosing: BUN 17 mg/dL (7-18) 03/28/25 06:49 Creatinine 1.2 mg/dL (0.70-1.30) 03/28/25 06:49 Medications needing adjustments: Reviewed (CrCl 54 mL/min) List of meds needing interventions: Current medications are okay Anticoagulation Anticoagulation: Hgb 7.1 g/dL (13.5-17.5) L 03/29/25 08:20 Hct 20.7 % (40.0-50.0) L* 03/29/25 08:20 Plt Count 69 10^3/uL (130-400) L 03/29/25 08:20 Creatinine 1.2 mg/dL (0.70-1.30) 03/28/25 06:49 DVT Prophylaxis: Reviewed Medications: Enoxaparin (40mg daily) Opiate Usage Evaluate Pain Scale/Pains Meds: Reviewed (hydromorphone 2mg IVP q4h PRN - 2mg / 24hrs, oxycodone 5mg q4h PRN - 5mg / 24hrs) Scheduled Bowel Reg ordered if on Opiates?: No (PRN docusate/Miralax) Relevant Labs Relevant Labs: Sodium 140 mmol/L (136-145) 03/28/25 06:49 Potassium 3.1 mmol/L (3.5-5.1) L 03/28/25 06:49 Chloride 105 mmol/L (98-107) 03/28/25 06:49 Electrolytes, C-Reactive P, ESR: Reviewed (No new labs for today) Cardiac Review BP, HR, EF%: Reviewed (BP 172/70 and HR 82) QTc Review QTc: Reviewed (425 from 03/22/25) IV to PO Switch IV Medications: Reviewed (hydromorphone and ondansetron) Home Meds Home Med List reviewed: Reviewed Current Meds Current Medication Order Review: Intervened Comments: Added IV admission access order Comments Comments/Follow Ups: Per provider waiting on BM before discharging
--- NOTE | 2025-03-30 16:26 | CHAPLAIN ---
Jeffrey was resting in bed when I visited this afternoon. He told me that he's had a BM so may be discharged today or tomorrow. 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 He has significant knowledge of the Bible and is Alevism, although not connected to a [place] community. Because of his encounters with God, and leaving his chelsi up to God, Jeffrey is not afraid of dying and he elaborated on this.
--- NOTE | 2025-03-30 17:44 | W.PM.PROGNOT ---
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 -had been on fent patch 12mcg daily, and only recently given PO oxy though patient has been reluctant to use pain meds at home -appreciate Palliative assistance in discussing pain regimen ; will continue 12 mcg fentanyl patch with patient will be discharged home with (2) Malignant tumor of prostate: Status: Chronic Assessment and plan: -Patient is currently getting radiation therapy for an attempt to control his pain and is on abiraterone (3) Constipation: Status: Acute Assessment and plan: - Patient has had multiple bowel movements on 03/30/2025 after additional dose of Relistor - Will be discharged home with MiraLAX and senna as needed (4) Severe protein-calorie malnutrition: Status: Acute Assessment and plan: -Plan to consult dietary in the a.m. (5) Pancytopenia: Status: Acute Assessment and plan: -likely secondary to metastatic prostate CA and radiation therapy -WBC 3.1->1.8, Hb 8->6.9, platelets 70-58, may also been worsened by IV fluids on admission (6) Malignant neoplasm metastatic to bone: Status: Acute Assessment and plan: -as noted above (7) Palliative care encounter: Assessment and plan: -appreciate Palliative Care recommendations Subjective Subjective Interval history since last seen: Patient has had multiple bowel movements today and states that he is feeling significantly better. Exam Narrative Exam Narrative: General: Very pleasant, pale, elderly man. Appears to have lost weight since last visit. He was sitting in the recliner in his hospital room. He engages in visit and answers questions appropriately. He is talkative, telling stories. HEENT: normocephalic, atraumatic, EOMI, mm appears dry. neck: supple respiratory: respirations appear even and unlabored at rest and with talking. Ext: moves all 4 extremities freely. Objective Last Vital Signs Temp 97.0 F L 03/30/25 08:16 Pulse 82 03/30/25 08:16 Resp 16 03/30/25 08:16 BP 172/70 H 03/30/25 08:16 Pulse Ox 94 03/30/25 08:16 Time Spent with Patient Time Spent with Patient: >50 minutes Time was spent: preparing to see the patient(eg.review tests), obtaining and/or reviewing separately otained hiistory, ordering medications,tests, procedures, referring, communicating with other health healthcare applications analyst, indepentently interpreting results, counseling the patient and care coordination
[2025-03-30] MEDS: fentaNYL 12 MCG PATCH TD (19:23)
[2025-03-30] MEDS: HYDROmorphone 2 MG/ML SYR IVP (19:28)
[2025-03-30] MEDS: Normal Saline Flush 10 ML SYR IVP (19:28)
[2025-03-30 19:34] VITALS: BP 172/84; PULSE 85; RESP 18; TEMP 36.8; O2SAT 95
[2025-03-31 02:07] VITALS: BP 125/62; PULSE 80; RESP 19; TEMP 37.5; O2SAT 96
[2025-03-31] MEDS: Normal Saline 1,000 ML 125 ML IV (03:37)
[2025-03-31] MEDS: HYDROmorphone 2 MG/ML SYR IVP (03:44)
[2025-03-31] MEDS: Normal Saline Flush 10 ML SYR IVP (03:45)
[2025-03-31] MEDS: Gabapentin 300 MG CAP PO (08:07)
[2025-03-31] MEDS: predniSONE 20 MG TAB 40 MG PO (08:07)
[2025-03-31] MEDS: Potassium Chloride 20 MEQ TABCR PO (08:07)
[2025-03-31 08:29] VITALS: BP 135/57; PULSE 91; RESP 24; TEMP 36.5; O2SAT 94
--- NOTE | 2025-03-31 09:18 | DSE_ITS ---
Date of service: 03/31/25 Time of Service: 09:18 DS: Diagnosis Discharge Diagnosis (1) Intractable pain: Status: Acute (2) Malignant tumor of prostate: Status: Chronic (3) Constipation: Status: Acute (4) Severe protein-calorie malnutrition: Status: Acute (5) Pancytopenia: Status: Acute (6) Malignant neoplasm metastatic to bone: Status: Acute (7) Palliative care encounter: Discharge Plan Disposition Patient Disposition: Home Condition: Good Discharge Details Reason For Visit: Intractable Pain Admit Date/Time: 03/27/25 22:09 Admit Provider: Turner Adams Attending Provider: Turner Adams Primary Care Provider: Turner Isaacs Hospital Course Hospital Course: Patient presented with signs and symptoms consistent with intractable pain secondary to metastatic prostate cancer to the bones and constipation. Patient had fentanyl patch placed which led to some improvement of his pain, though complete improvement of his pain occurred once he eventually had bowel movements on 03/30/2025. Patient was also seen by palliative care who assisted in patient's pain regimen and will follow up with patient once discharged. Given that patient had improvement of his pain and resolution of his constipation was determined he was stable for discharge home. Home Meds and New Rx's Prescriptions: New polyethylene glycol 3350 17 gram Powder In Packet 17 g PO DAILY PRN PRN (Reason: Constipation) Qty: 30 0RF docusate sodium [Colace] 100 mg Capsule 100 mg PO TID PRN PRNQty: 30 0RF Continued Ensure Complete 0.1 gram- 1.18 kcal/mL liquid PO .5 x day turmeric 400 mg capsule 400 mg PO DAILY fentanyl 12 mcg/hr patch 72 hour 1 patch transdermal Q72H MDD 1 patch Qty: 10 0RF Rx Instructions: for cancer-related pain abiraterone 250 mg tablet 1,000 mg PO DAILY Rx Instructions: must be taken on empty stomach, at least 1 hr before or 2 hrs after a meal/food acetaminophen 650 mg tablet extended release 650 mg PO Q12H PRN prochlorperazine maleate 10 mg tablet 10 mg PO Q6H PRN sennosides 15 mg tablet 15 mg PO DAILY PRN potassium chloride 20 mEq tablet,ER particles/crystals 20 meq PO DAILY Patient Comments: TAKE ONE TABLET BY MOUTH TWICE A DAY FOR 7 DAYS, THEN DECREASE TO ONE TABLET BY MOUTH EVERY DAY gabapentin 300 mg capsule 300 mg PO BID Qty: 20 0RF lactulose 10 gram/15 mL solution 10 g PO DAILY PRNQty: 1200 0RF oxycodone 5 mg tablet 5 mg PO Q4H PRN (Reason: Moderate to severe pain) Qty: 10 0RF Discharge Instructions Activity:: Activity as Tolerated Equipment/Supplies:: No Equipment Needed Diet:: As Tolerated Discharge Orders Discharge Orders: Discharge Order (Routine); Ordered 03/31/25 Ordered By: Boubacar Phillips DS: Summary Time Spent with Patient providing and/or coordinating discharge services: Greater than 30 minutes Status at Discharge Functional status at discharge: independent ambulation Overall status at discharge: patient is back to baseline Mental Status: mental status grossly normal Speech and Movement: speech and movement normal Mood: congruent mood Affect: normal affect Quality:SDOH Health Related Social Needs: Health related social needs housing instability, house d, with risk of homelessness (Z59.811), education (Z55.6) Health related social needs details palliative and car e mgt consult ordered. Health related social needs details: palliative and care mgt consult ordered. Exam Narrative Exam Narrative: well appearing older gentleman laying in bed in no acute distress, AOx4, heart RRR, lungs CTAB, abdomen distended with mild diffuse tenderness throughout but without guarding or rebound Psych Mental Status: mental status grossly normal Speech and Movement: speech and movement normal Mood: congruent mood Affect: normal affect DS: Data Vitals/I&O Vitals and I&O: Vital Signs Temperature 97.7 F 03/31/25 08:29 Temperature Source Temporal Artery Scan 03/31/25 08:29 Pulse 91 H 03/31/25 08:29 Pulse Rhythm Regular 03/27/25 23:49 Pulse 84 03/27/25 23:10 Respiratory Rate 24 03/31/25 08:29 Respiratory Effort Non-Labored 03/27/25 23:49 Respiratory Depth Normal 03/27/25 23:49 Respiratory Pattern Normal 03/27/25 23:49 Blood Pressure 135/57 L 03/31/25 08:29 Blood Pressure Mean 83 03/31/25 08:29 Pulse Oximetry 94 03/31/25 08:29 Respiratory End-tidal CO2 13 03/27/25 22:40 Oxygen Delivery Method Room Air 03/31/25 08:29 Oxygen Flow Rate 0 03/31/25 08:29 Pain Level 0 03/31/25 08:29 Comment RN notified 03/31/25 08:29 Comment 2L oxygen initiated at this time 03/27/25 21:10 Intake & Output 03/30/25 03/31/25 03/31/25 17:59 05:59 17:59 Intake Total 1000 / 1000 2000 / 3000 Output Total 200 / 200 1350 / 1550 275 / 275 Balance 800 / 800 650 / 1450 -275 / -275 Weight 166 lb 14.239 oz Intake: IV 1000 / 1000 2000 / 3000 Output: Urine 200 / 200 1350 / 1550 275 / 275 Other: Urine Color Yellow Yellow Yellow Urine Appearance Clear Clear Clear Urine Odor None Normal Stool Size Small Stool Characteristics Brown Emesis Description None PFSH All Active Problems (Updated 03/31/25 @ 09:17 by Boubacar Phillips MD) Intractable pain (Acute) Nausea (Acute) 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) Constipation (Acute) Constipation (Acute) Chronic pain not due to malignancy (Acute) Long toenail (Acute) Pain in left foot (Acute) Chemotherapy-induced neuropathy (Acute) Pain in right foot (Acute) Hammertoe of right foot (Acute) Malignant neoplasm metastatic to bone (Acute) Essential hypertension (Acute) Coronary arteriosclerosis (Acute) Malignant tumor of prostate (Chronic) Spinal stenosis (Acute) Pressure injury of skin of sacral region (Acute) Severe protein-calorie malnutrition (Acute) Transient cerebral ischemia (Chronic) Spinal stenosis of lumbar region (Acute) Pulmonary hypertension (Acute) Pancytopenia (Acute) Sleep apnea, obstructive (Chronic) Mild cognitive disorder (Acute) Dyspnea on exertion (Acute) Bilateral pleural effusion (Acute) Benign prostatic hyperplasia (Chronic) Angina pectoris (Chronic) Acute and chronic respiratory failure with hypoxia (Acute) High risk medication use (Acute) Cancer related pain (Acute) Lumbar radiculitis (Acute) Medical History 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 Palliative care encounter GERD (gastroesophageal reflux disease) HTN (hypertension) Hyperlipidemia Stable angina Paroxysmal A-fib CAD (coronary artery disease) 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 Elevated alkaline phosphatase level Anemia TIA (transient ischemic attack) Abnormal weight loss Shingles Left sided sciatica Prostate cancer metastatic to bone Myalgia Memory impairment Fatigue Metastatic malignant neoplasm to prostate Surgical History S/P PTCA (percutaneous transluminal coronary angioplasty) Family History Mother Leukemia Other Adopted Social History Smoking/Tobacco Use Status: Former Tobacco Use Smoking risk assessment performed?: Yes Alcohol Intake: never Drug use: Never Substance use type: does not use Housing: house Number of Children: 2 What type of physical activity do you participate in: swimming and additional Details: Pool therapy Do you feel safe at home: Yes Do you feel safe in your relationship?: Yes Additional Social history: Former tobacco user: Quit 25 yrs ago Time Spent with Patient Time Spent with Patient: <45 minutes Time was spent: preparing to see the patient(eg.review tests), obtaining and/or reviewing separately otained hiistory, ordering medications,tests, procedures, referring, communicating with other health day care worker, indepentently interpreting results, counseling the patient and care coordination
--- NOTE | 2025-03-31 11:03 | PT.INNT ---
PT Notes Visit Reasons: Intractable Pain Pt is being d/c from hospital today. He plans on resuming outpatient PT next week and will contact them on Wednesday.
--- NOTE | 2025-03-31 12:16 | CMDISCH_ITS ---
Date of service: 03/31/25 Time of Service: 12:16 LACE Index Scoring Tool Questions: Length of Stay (in days): 4 - 6 Was the patient admitted via the E.D.?: Yes Comorbidities: Chronic Pulmonary Disease and Metastatic Solid Tumor E.D. Visits: 1 Answers: Total Score: 13 Risk of Readmission: High Risk Care Management Discharge Plan Reason for Hospitalization: intractable pain Discharge Plan: Jeffrey was discharged home today with no new services. He will go to outpatient PT, recommended by PT. He was transported via private vehicle by family. He will follow up with his PCP and other providers, and his discharge plan of care. He was happy to be going home. Patient/Family Education Needs: Review discharge instructions and limitations, discussion of self care needs including ask me three. SDOH Health Related Social Needs: Health related social needs housing instability, house d, with risk of homelessness (Z59.811), education (Z55.6) Health related social needs details palliative and car e mgt consult ordered. Health related social needs details: palliative and care mgt consult ordered.
== END 2025-03-31 11:06 | disposition home or self-care (01) | DRG 947 ==
LOC: ER 23:32 → MS 03-28 06:42
PROVIDERS: Admitting Provider Hospitalist; Emergency Provider Nurse Practitioner Family; PCP Internal Medicine; Responsible Provider Family Medicine; Visit Provider Hospitalist
DX: G89.3 Neoplasm related pain (acute) (chronic) (principal); E43 Unspecified severe protein-calorie malnutrition; C79.51 Secondary malignant neoplasm of bone; D61.818 Other pancytopenia; E87.1 Hypo-osmolality and hyponatremia; Z59.811 Housing instability, housed, with risk of homelessness; C61 Malignant neoplasm of prostate; R11.0 Nausea; K59.03 Drug induced constipation; T40.2X5A Adverse effect of other opioids, initial encounter; Z79.899 Other long term (current) drug therapy; Z86.73 Personal history of transient ischemic attack (TIA), and cerebral infarction without residual deficits; E87.6 Hypokalemia; I27.20 Pulmonary hypertension, unspecified; I25.10 Atherosclerotic heart disease of native coronary artery without angina pectoris; I48.0 Paroxysmal atrial fibrillation; E78.5 Hyperlipidemia, unspecified; K21.9 Gastro-esophageal reflux disease without esophagitis; I10 Essential (primary) hypertension; G62.0 Drug-induced polyneuropathy; T45.1X5A Adverse effect of antineoplastic and immunosuppressive drugs, initial encounter; G47.33 Obstructive sleep apnea (adult) (pediatric); Z68.22 Body mass index [BMI] 22.0-22.9, adult; D64.9 Anemia, unspecified; Z55.6 Problems related to health literacy
CPT/HCPCS: 00123; 36415; 80053; 85027; 96361; 96372; 96374; 96375; 96376; 97112; 97162; 97530; 99285; J1650; 70470; 74019; 81003; 81015; 83605; 85025; 94760; 99222; 99233; 99239; J1100; J1171; J2212; J2270; J2405; J3490; J7512

== ENCOUNTER 2025-04-03 15:07 | Outpatient (CLI) | payer MEDICARE, MEDICAID, SELFPAY ==
[2025-04-03 15:15] LABS: Abs Immature Grans 0.01 10^3/uL (0.0-0.06); Absolute Basophil Count 0.01 10^3/uL (0.0-0.2); Absolute Eosinophil Count 0.02 10^3/uL (0.0-0.7); Absolute Monocyte Count 0.34 10^3/uL (0.1-0.8); Absolute Neutrophil Count 2.32 10^3/uL (1.2-6.7); Basophils % 0.3 %; Eosinophils % 0.6 %; HCT 21.4 % (40.0-50.0); HGB 7.5 g/dL (13.5-17.5); Immature Grans % 0.3 %; Lymphocytes % 15.6 %; MCH 31.6 pg (27.0-33.0); MCV 90 fL (80-95); MPV 9.2 fL (8.0-11.0); Monocytes % 10.6 %; Neutrophils % 72.6 %; RBC 2.37 10^6/uL (4.36-5.78); RDW 16.4 % (11.8-14.1); RDW-SD 53.7 fL
[2025-04-03 15:34] LABS: Microcytosis 1+
[2025-04-03 15:35] LABS: Hypochromasia 2+
[2025-04-03 15:36] LABS: Diff Comment RBC Morph Reviewed; Platelet Count 74 10^3/uL (130-400)
== END 2025-04-03 15:08 | disposition home or self-care (01) ==
LOC: LBO 15:09
PROVIDERS: PCP Internal Medicine; Visit Provider Nurse Practitioner
DX: C61 Malignant neoplasm of prostate (principal)
CPT/HCPCS: 36415; 80053; 84153; 84403; 85025

== ENCOUNTER 2025-04-04 09:28 | Emergency (ER) | payer MEDICARE, MEDICAID, SELFPAY ==
[2025-04-04] VITALS (69 sets, daily range): BP systolic 133–204; BP diastolic 56–87; PULSE 72–97; RESP 13–43; TEMP 35.6–36.8; O2SAT 82–100
--- NOTE | 2025-04-04 09:52 | ED.GENADUL_ITS ---
Discharge Plan Disposition Patient Disposition: Home Condition: Stable Discharge Details Clinical Impression: Cancer associated pain Primary Care Provider: Turner Isacas ED Provider: Kiel Mares Home Meds and New Rx's Prescriptions: Continued Ensure Complete 0.1 gram- 1.18 kcal/mL liquid PO .5 x day turmeric 400 mg capsule 400 mg PO DAILY fentanyl 12 mcg/hr patch 72 hour 1 patch transdermal Q72H MDD 1 patch Qty: 10 0RF Rx Instructions: for cancer-related pain morphine 15 mg tablet extended release 15 mg PO Q8H MDD 3 tabs Qty: 30 0RF Rx Instructions: take 1 tab by mouth every 8 hours, scheduled morphine 15 mg tablet 15 - 30 mg PO Q2H PRN MDD 12 tabs PRN (Reason: pain) Qty: 30 0RF Rx Instructions: take 1-2 tabs by mouth every hour as needed for pain lorazepam 0.5 mg tablet 0.5 - 1 mg PO BID PRN (Reason: anxiety) Qty: 10 0RF sennosides [senna] 8.6 mg tablet 8.6 - 17.2 mg PO BID PRN (Reason: constipation) Qty: 30 0RF abiraterone 250 mg tablet 1,000 mg PO DAILY Rx Instructions: must be taken on empty stomach, at least 1 hr before or 2 hrs after a meal/food acetaminophen 650 mg tablet extended release 650 mg PO Q12H PRN prochlorperazine maleate 10 mg tablet 10 mg PO Q6H PRN sennosides 15 mg tablet 15 mg PO DAILY PRN potassium chloride 20 mEq tablet,ER particles/crystals 20 meq PO DAILY Patient Comments: TAKE ONE TABLET BY MOUTH TWICE A DAY FOR 7 DAYS, THEN DECREASE TO ONE TABLET BY MOUTH EVERY DAY gabapentin 300 mg capsule 300 mg PO BID Qty: 20 0RF lactulose 10 gram/15 mL solution 10 g PO DAILY PRNQty: 1200 0RF oxycodone 5 mg tablet 5 mg PO Q4H PRN (Reason: Moderate to severe pain) Qty: 10 0RF polyethylene glycol 3350 17 gram Powder In Packet 17 g PO DAILY PRN PRN (Reason: Constipation) Qty: 30 0RF docusate sodium [Colace] 100 mg Capsule 100 mg PO TID PRN PRNQty: 30 0RF Discharge Instructions Additional Instructions: With a palliative care provider sent prescriptions in for you. Follow-up with your oncologist as scheduled. If you feel more ill or new symptoms such as high fevers return to the emergency department for reevaluation. HPI General Mode of arrival: wheelchair . Date/Time Provider Initiated Documentation: 04/04/25 09:30 . Limitations to Documentation: no limitations . Information obtained by: patient . History of Present Illness 79 year old M presents to the emergency department with the chief complaint of abdominal and back pain, described as severe, with intensity rated at 9. Quality is described as aching and sharp, and is localized to the back and abdomen. Patient reports no radiation. Patient started experiencing this month(s) (1) and it has been constant. No relieving factors improve symptom(s), No exacerbating factors reported . Patient notes nausea/vomiting; denies chest pain, fever/chills and shortness of breath. Patient did receive the following treatments prior to arrival, none Related Data Home Medications ?Medication ?Instructions ?Recorded ?Confirmed food supplemt, lactose-reduced 0.1 ml PO .5 x day 04/06/24 04/04/25 gram-1.18 kcal/mL oral liquid (Ensure Complete) turmeric 400 mg capsule 400 mg PO DAILY 09/26/24 04/04/25 abiraterone 250 mg tablet 1,000 mg PO DAILY 03/15/25 04/04/25 acetaminophen 650 mg 650 mg PO Q12H PRN 03/15/25 04/04/25 tablet,extended release prochlorperazine maleate 10 mg 10 mg PO Q6H PRN 03/15/25 04/04/25 tablet sennosides 15 mg tablet 15 mg PO DAILY PRN 03/15/25 04/04/25 gabapentin 300 mg capsule 300 mg PO BID #20 caps 03/22/25 04/04/25 lactulose 10 gram/15 mL oral 10 g (15 mL) PO DAILY PRN #1,200 mL 03/22/25 04/04/25 solution oxycodone 5 mg tablet 5 mg PO Q4H PRN Moderate to severe 03/22/25 04/04/25 pain #10 tabs potassium chloride 20 mEq 20 meq PO DAILY 03/22/25 04/04/25 tablet,extended release(part/cryst) fentanyl 12 mcg/hr transdermal 1 patch transdermal Q72H #10 ea 03/30/25 04/04/25 patch docusate sodium 100 mg capsule 100 mg PO TID PRN PRN #30 caps 03/31/25 04/04/25 (Colace) polyethylene glycol 3350 17 gram 17 g PO DAILY PRN PRN Constipation 03/31/25 04/04/25 oral powder packet #30 ea lorazepam 0.5 mg tablet 0.5 - 1 mg (1 - 2 x 0.5 mg) PO BID 04/04/25 04/04/25 PRN anxiety #10 tabs morphine 15 mg immediate release 15 - 30 mg (1 - 2 x 15 mg) PO Q2H 04/04/25 04/04/25 tablet PRN PRN pain #30 tabs morphine 15 mg tablet,extended 15 mg PO Q8H #30 tabs 04/04/25 04/04/25 release sennosides 8.6 mg tablet (senna) 8.6 - 17.2 mg (1 - 2 x 8.6 mg) PO 04/04/25 04/04/25 BID PRN constipation #30 tabs Previous Rx's ?Medication ?Instructions ?Recorded gabapentin 300 mg capsule 300 mg PO BID #20 caps 03/22/25 lactulose 10 gram/15 mL oral 10 g (15 mL) PO DAILY PRN #1,200 mL 03/22/25 solution oxycodone 5 mg tablet 5 mg PO Q4H PRN Moderate to severe 03/22/25 pain #10 tabs fentanyl 12 mcg/hr transdermal 1 patch transdermal Q72H #10 ea 03/30/25 patch docusate sodium 100 mg capsule 100 mg PO TID PRN PRN #30 caps 03/31/25 (Colace) polyethylene glycol 3350 17 gram 17 g PO DAILY PRN PRN Constipation 03/31/25 oral powder packet #30 ea lorazepam 0.5 mg tablet 0.5 - 1 mg (1 - 2 x 0.5 mg) PO BID 04/04/25 PRN anxiety #10 tabs morphine 15 mg immediate release 15 - 30 mg (1 - 2 x 15 mg) PO Q2H 04/04/25 tablet PRN PRN pain #30 tabs morphine 15 mg tablet,extended 15 mg PO Q8H #30 tabs 04/04/25 release sennosides 8.6 mg tablet (senna) 8.6 - 17.2 mg (1 - 2 x 8.6 mg) PO 04/04/25 BID PRN constipation #30 tabs Allergies Allergy/AdvReac Type Severity Reaction Status Date / Time No Known Allergies Allergy Verified 04/04/25 09:38 General Stated Complaint: GenMedical LILIANE: 2 Review of Systems All systems reviewed & are unremarkable except as noted in HPI and below Constitutional Constitutional: Denies chills, Denies fever(s) and Denies weakness Cardiovascular Cardiovascular: Denies chest pain and Denies dyspnea Respiratory Respiratory: Denies cough and Denies dyspnea Gastrointestinal Gastrointestinal: Reports abdominal pain, Denies nausea and Denies vomiting Musculoskeletal Musculoskeletal: Reports back pain Neurologic Neurologic: Denies weakness Psychiatric Psychiatric: Denies depression Exam Const General: no acute distress Orientation: alert HENMT Head: normal to inspection Ears: external ears normal General nose exam: external nose normal Mouth: moist mucous membranes Eyes General: appearance normal, both eyes and all related structures Neck Neck: normal visual inspection Resp Effort & Inspection: normal respiratory effort and able to speak in complete sentences Cardio Rate: regular rate GI Palpation: soft, not firm, no guarding and tender Back/Spine/Pelvis Back: no CVA tenderness, No erythema and No warmth Skin General skin exam: no rashes or lesions noted Neuro General: patient alert and patient oriented x3 Extrem General: normal to inspection Psych Mental Status: mental status grossly normal Course Vital Signs Vital signs: Vital Signs Temperature 36.8 C 04/04/25 09:30 Pulse 95 H 04/04/25 09:30 Respiratory Rate 36 H 04/04/25 09:30 Blood Pressure 204/87 H 04/04/25 09:30 Pulse Oximetry 99 04/04/25 09:30 Temperature 36.8 C 04/04/25 09:30 Temperature Source Oral 04/04/25 09:30 Pulse 95 H 04/04/25 09:30 Respiratory Rate 36 H 04/04/25 09:30 Blood Pressure 204/87 H 04/04/25 09:30 Pulse Oximetry 99 04/04/25 09:30 Oxygen Delivery Method Room Air 04/04/25 09:30 Oxygen Flow Rate 0 04/04/25 09:30 Pain Level 10 04/04/25 09:30 Medical Decision Making 79-year-old male with metastatic prostate cancer who has had issues with abdominal and back pain for over a month who was admitted last week and states he was discharged and upon going home had immediate return of pain. He comes in today with continued pain and also states the cancer center wants him to get a transfusion to keep his hemoglobin above 8 to help with his energy levels. He denies any chest pain, fevers, vomiting today but has been having nausea and vomiting on other days. He has no saddle anesthesia, abdomen is soft with minimal tenderness in the lower quadrants. He was seen for similar complaints earlier this month and had a negative CT for acute findings that he did have metastatic lesions in the vertebra. I suspect his pain is related to his cancer, will check a CBC and CMP and type and screen and treat his pain with Dilaudid and see if palliative care can consult with him for pain management. labs show a potassium of 2.9 so oral repletion ordered. Hemoglobin 7.5, will administer 1 unit based on oncology recommendations. I have also placed a palliative care consult for pain management. Patient with palliative care and will plan for providing different oral pain and medications. Last transfusion close will potassium has improved. Plan for discharge and will follow oncology and palliative care. Differential Diagnosis Differential Diagnosis: Cancer related pain, anemia Quality:SDOH Health Related Social Needs: Health related social needs housing instability, house d, with risk of homelessness (Z59.811), education (Z55.6) Health related social needs details palliative and car e mgt consult ordered. PFSH All Active Problems (Updated 04/04/25 @ 13:06 by Park Fischer) Anxiety (Chronic) ACP (advance care planning) (Acute) Sleep pattern disturbance (Acute) 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) Constipation (Acute) Chronic pain not due to malignancy (Acute) Long toenail (Acute) Pain in left foot (Acute) Chemotherapy-induced neuropathy (Acute) Pain in right foot (Acute) Hammertoe of right foot (Acute) Malignant neoplasm metastatic to bone (Acute) Essential hypertension (Acute) Coronary arteriosclerosis (Acute) Malignant tumor of prostate (Chronic) Spinal stenosis (Acute) Pressure injury of skin of sacral region (Acute) Severe protein-calorie malnutrition (Acute) Transient cerebral ischemia (Chronic) Spinal stenosis of lumbar region (Acute) Pulmonary hypertension (Acute) Pancytopenia (Acute) Sleep apnea, obstructive (Chronic) Mild cognitive disorder (Acute) Dyspnea on exertion (Acute) Bilateral pleural effusion (Acute) Benign prostatic hyperplasia (Chronic) Angina pectoris (Chronic) Acute and chronic respiratory failure with hypoxia (Acute) High risk medication use (Acute) Cancer related pain (Acute) Lumbar radiculitis (Acute) Medical History (Updated 04/04/25 @ 13:06 by Park Fischer) 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 Palliative care encounter GERD (gastroesophageal reflux disease) HTN (hypertension) Hyperlipidemia Stable angina Paroxysmal A-fib CAD (coronary artery disease) 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 Elevated alkaline phosphatase level Anemia TIA (transient ischemic attack) Abnormal weight loss Shingles Left sided sciatica Myalgia Memory impairment Fatigue Metastatic malignant neoplasm to prostate Surgical History S/P PTCA (percutaneous transluminal coronary angioplasty) Family History Mother Leukemia Other Adopted Social History Smoking/Tobacco Use Status: Former Tobacco Use Smoking risk assessment performed?: Yes Alcohol Intake: never Drug use: Never Substance use type: does not use Housing: house Number of Children: 2 What type of physical activity do you participate in: swimming and additional Details: Pool therapy Do you feel safe at home: Yes Do you feel safe in your relationship?: Yes Additional Social history: Former tobacco user: Quit 25 yrs ago
[2025-04-04] MEDS: HYDROmorphone 2 MG/ML SYR IVP ×3 (09:57→15:47)
[2025-04-04] MEDS: Ondansetron 4 MG/2 ML VIAL IVP (09:58)
[2025-04-04 10:13] LABS: Abs Immature Grans 0.02 10^3/uL (0.0-0.06); Absolute Basophil Count 0.01 10^3/uL (0.0-0.2); Absolute Lymphocyte Count 0.25 10^3/uL (1.2-3.4); Absolute Monocyte Count 0.18 10^3/uL (0.1-0.8); Absolute Neutrophil Count 2.56 10^3/uL (1.2-6.7); Basophils % 0.3 %; HCT 21.1 % (40.0-50.0); HGB 7.5 g/dL (13.5-17.5); Immature Grans % 0.7 %; Lymphocytes % 8.3 %; MCH 32.2 pg (27.0-33.0); MCHC 35.5 % (32.0-36.0); MCV 91 fL (80-95); Neutrophils % 84.7 %; RBC 2.33 10^6/uL (4.36-5.78); RDW 16.4 % (11.8-14.1); RDW-SD 53.1 fL; WBC 3.02 10^3/uL (4.4-10.8)
[2025-04-04 10:29] LABS: ALT 20 U/L (16-63); AST 53 U/L (15-37); Albumin 3.1 g/dL (3.4-5.0); Alkaline Phosphatase 359 U/L (46-116); Anion Gap 14.2 mmol/L (3-11); BUN 16 mg/dL (7-18); CO2 24.8 mmol/L (21.0-32.0); CREATININE 1.2 mg/dL (0.70-1.30); Calcium 8.6 mg/dL (8.5-10.1); Chloride 98 mmol/L (98-107); Glucose 131 mg/dL (74-106); Magnesium 1.8 mg/dL (1.8-2.4); Sodium 137 mmol/L (136-145); Total Protein 6.1 g/dL (6.4-8.2)
[2025-04-04 10:30] LABS: Potassium 2.9 mmol/L (3.5-5.1)
[2025-04-04 10:39] LABS: Diff Comment Diff Reviewed; Platelet Count 62 10^3/uL (130-400); RBC Morphology Normal
[2025-04-04] MEDS: Potassium Chloride 20 MEQ TABCR 40 MEQ PO (10:44)
[2025-04-04 14:43] LABS: Potassium 3.4 mmol/L (3.5-5.1)
== END 2025-04-04 16:16 | disposition home or self-care (01) ==
PROVIDERS: Emergency Provider Emergency Medicine; PCP Internal Medicine
DX: G89.3 Neoplasm related pain (acute) (chronic) (principal); C61 Malignant neoplasm of prostate; C79.51 Secondary malignant neoplasm of bone; I10 Essential (primary) hypertension; E78.5 Hyperlipidemia, unspecified; I48.91 Unspecified atrial fibrillation; I25.118 Atherosclerotic heart disease of native coronary artery with other forms of angina pectoris; Z86.73 Personal history of transient ischemic attack (TIA), and cerebral infarction without residual deficits; Z79.899 Other long term (current) drug therapy; Z87.891 Personal history of nicotine dependence
CPT/HCPCS: 36415; 36430; 80053; 86850; 86900; 86901; 86920; 86945; 96374; 96375; 96376; 99284; 83735; 84132; 85025; 86644; J1171; J2405; P9016

== ENCOUNTER 2025-04-08 11:25 | Emergency (ER) | payer MEDICARE, MEDICAID, SELFPAY ==
[2025-04-08] VITALS (15 sets, daily range): BP systolic 142–196; BP diastolic 65–109; PULSE 65–96; RESP 13–34; TEMP 36.6; O2SAT 18–100
[2025-04-08] MEDS: HYDROmorphone 2 MG/ML SYR 4 MG IM (12:19)
[2025-04-08] MEDS: fentaNYL 50 MCG PATCH TD (13:12)
--- NOTE | 2025-04-08 13:43 | ED.GENADUL_ITS ---
Discharge Plan Disposition Patient Disposition: Home Condition: Stable Discharge Details Clinical Impression: Cancer related pain Primary Care Provider: Turner Isaacs ED Provider: Vale Coleman Home Meds and New Rx's Prescriptions: New naloxone [Narcan] 4 mg/actuation spray,non-aerosol 4 mg intranasal Q3M PRNQty: 2 5RF Rx Instructions: spray 1 dose into ONE nostril; alternate nostrils w each dose until help arrives No Action hydromorphone 4 mg tablet 4 - 8 mg PO Q4H MDD 12 tabs PRN (Reason: pain) Qty: 30 0RF Rx Instructions: for cancer-related pain ondansetron 4 mg tablet,disintegrating 4 mg PO Q6H PRN (Reason: nausea and vomiting) Qty: 30 4RF prednisone 5 mg tablet 10 mg PO DAILY turmeric 400 mg capsule 400 mg PO DAILY morphine 15 mg tablet extended release 15 mg PO Q8H MDD 3 tabs Qty: 30 0RF Rx Instructions: take 1 tab by mouth every 8 hours, scheduled lorazepam 0.5 mg tablet 0.5 - 1 mg PO BID PRN (Reason: anxiety) Qty: 10 0RF sennosides [senna] 8.6 mg tablet 8.6 - 17.2 mg PO BID PRN (Reason: constipation) Qty: 30 0RF abiraterone 250 mg tablet 1,000 mg PO DAILY Rx Instructions: must be taken on empty stomach, at least 1 hr before or 2 hrs after a meal/food acetaminophen 650 mg tablet extended release 650 mg PO Q12H PRN prochlorperazine maleate 10 mg tablet 10 mg PO Q6H PRN potassium chloride 20 mEq tablet,ER particles/crystals 20 meq PO DAILY Patient Comments: TAKE ONE TABLET BY MOUTH TWICE A DAY FOR 7 DAYS, THEN DECREASE TO ONE TABLET BY MOUTH EVERY DAY lactulose 10 gram/15 mL solution 10 g PO DAILY PRNQty: 1200 0RF morphine 15 mg tablet 15 mg PO Q2H PRN Patient Comments: 15 - 30 mg (1 - 2 x 15 mg) orally every 2 hours, as needed As Needed for pain, Max Daily Dose: 12 tabs; take 1-2 tabs by mouth every hour as needed for pain fentanyl 12 mcg/hr patch 72 hour 1 patch transdermal Q72H Patient Comments: APPLY 1 PATCH TO CLEAN, DRY SKIN FOR 72 HOURS THEN REMOVE, DISPOSE OF PROPERLY AND APPLY A NEW PATCH ON A DIFFERENT, CLEAN DRY SKIN SITE polyethylene glycol 3350 17 gram Powder In Packet 17 g PO DAILY PRN PRN (Reason: Constipation) Qty: 30 0RF Discharge Instructions Additional Instructions: Please follow-up closely with your palliative care team, call them tomorrow and discuss transitioning to buprenorphine A FENTANYL PATCH HAS BEEN PLACED (50MCG) . LEAVE THIS ON FOR 72 HOURS TAKE YOUR MORPHINE 2 TABS EVERY 12 HOURS. THIS IS LONG ACTING MEDICINE AND WILL BE YOUR BASE OF PAIN CONTROL TAKE THE HYDROMORPHONE 1-2 TABS EVERY 4-6 HOURS FOR SEVERE PAIN (LIKE WHEN YOU ARE A 10/10) REMEMBER THAT YOUR GOAL IS TO BE A 7-8 OUT OF 10.? YOU MUST TAKE THE MEDICINES ON A SCHEDULE TO MAINTAIN GOOD PAIN RELIEF. LAYING DOWN FLAT WILL LIKELY MAKE YOUR SYMPTOMS WORSE AND SLEEP DIFFICULT, SO USE YOUR NEW CHAIR TO GET SOME REST. HAVE NARCAN AVAILABLE FOR SOMEONE TO USE IN? CASE OF AN ACCIDENTAL OVERDOSE. Discharge Data Discharge Date/Time-TO BE ENTERED AT DEPARTURE: 04/08/25 13:23 HPI General Date/Time Provider Initiated Documentation: 04/08/25 11:52 . Limitations to Documentation: no limitations . Information obtained by: patient . HPI Narrative: 79-year-old gentleman with past medical history of metastatic prostate cancer and chronic pain presents for evaluation of pain recurrence. Patient recently had prolonged hospitalization for chronic pain and was discharged from the hospital on Wednesday. He has not been taking the medication as prescribed. He reports persistence of his pain and inability to lay down and get sleep. He is requesting pain medication that we will keep him pain-free until Wednesday when he is set to receive radiation therapy. He states that he did have a fentanyl patch but he took it off because it was not working. He has not had any fever or chills. He reports that he has been eating and drinking well, but does have a dry mouth. He does not have any history of recent trauma. Related Data Home Medications ?Medication ?Instructions ?Recorded ?Confirmed turmeric 400 mg capsule 400 mg PO DAILY 09/26/24 04/08/25 abiraterone 250 mg tablet 1,000 mg PO DAILY 03/15/25 04/08/25 acetaminophen 650 mg 650 mg PO Q12H PRN 03/15/25 04/08/25 tablet,extended release prochlorperazine maleate 10 mg 10 mg PO Q6H PRN 03/15/25 04/08/25 tablet lactulose 10 gram/15 mL oral 10 g (15 mL) PO DAILY PRN #1,200 mL 03/22/25 04/08/25 solution potassium chloride 20 mEq 20 meq PO DAILY 03/22/25 04/08/25 tablet,extended release(part/cryst) polyethylene glycol 3350 17 gram 17 g PO DAILY PRN PRN Constipation 03/31/25 04/08/25 oral powder packet #30 ea lorazepam 0.5 mg tablet 0.5 - 1 mg (1 - 2 x 0.5 mg) PO BID 04/04/25 04/08/25 PRN anxiety #10 tabs morphine 15 mg tablet,extended 15 mg PO Q8H #30 tabs 04/04/25 04/08/25 release sennosides 8.6 mg tablet (senna) 8.6 - 17.2 mg (1 - 2 x 8.6 mg) PO 04/04/25 04/08/25 BID PRN constipation #30 tabs hydromorphone 4 mg tablet 4 - 8 mg (1 - 2 x 4 mg) PO Q4H PRN 04/05/25 04/08/25 pain #30 tabs ondansetron 4 mg disintegrating 4 mg PO Q6H PRN nausea and 04/05/25 04/08/25 tablet vomiting #30 tabs prednisone 5 mg tablet 10 mg PO DAILY 04/05/25 04/08/25 fentanyl 12 mcg/hr transdermal 1 patch transdermal Q72H 04/08/25 04/08/25 patch morphine 15 mg immediate release 15 mg PO Q2H PRN 04/08/25 04/08/25 tablet naloxone 4 mg/actuation nasal 4 mg intranasal Q3M PRN #2 ea 04/08/25 spray (Narcan) Previous Rx's ?Medication ?Instructions ?Recorded lactulose 10 gram/15 mL oral 10 g (15 mL) PO DAILY PRN #1,200 mL 03/22/25 solution polyethylene glycol 3350 17 gram 17 g PO DAILY PRN PRN Constipation 03/31/25 oral powder packet #30 ea lorazepam 0.5 mg tablet 0.5 - 1 mg (1 - 2 x 0.5 mg) PO BID 04/04/25 PRN anxiety #10 tabs morphine 15 mg tablet,extended 15 mg PO Q8H #30 tabs 04/04/25 release sennosides 8.6 mg tablet (senna) 8.6 - 17.2 mg (1 - 2 x 8.6 mg) PO 04/04/25 BID PRN constipation #30 tabs hydromorphone 4 mg tablet 4 - 8 mg (1 - 2 x 4 mg) PO Q4H PRN 04/05/25 pain #30 tabs ondansetron 4 mg disintegrating 4 mg PO Q6H PRN nausea and 04/05/25 tablet vomiting #30 tabs naloxone 4 mg/actuation nasal 4 mg intranasal Q3M PRN #2 ea 04/08/25 spray (Narcan) Allergies Allergy/AdvReac Type Severity Reaction Status Date / Time No Known Allergies Allergy Verified 04/08/25 11:46 General Stated Complaint: GenMedical LILIANE: 3 Exam Narrative Exam Narrative: Review of Systems: All systems reviewed & are unremarkable except as noted in HPI and below Well-developed, no acute distress NCAT RRR Unlabored respiratory effort Nondistended abdomen no focal neurologic deficits Appropriate mood and affect Course Vital Signs Vital signs: Vital Signs Temperature 36.6 C 04/08/25 11:38 Pulse 94 H 04/08/25 11:38 Respiratory Rate 14 04/08/25 11:38 Blood Pressure 191/67 H 04/08/25 11:38 Pulse Oximetry 97 04/08/25 11:38 Temperature 36.6 C 04/08/25 11:51 Temperature Source Oral 04/08/25 11:51 Pulse 65 04/08/25 13:22 Pulse 95 H 04/08/25 12:50 Respiratory Rate 20 04/08/25 13:22 Respiratory Effort Normal, Non-Labored 04/08/25 12:01 Respiratory Depth Normal 04/08/25 12:01 Respiratory Pattern Normal 04/08/25 12:01 Blood Pressure 164/82 H 04/08/25 12:46 Blood Pressure Mean 111 04/08/25 12:46 Blood Pressure Position Sitting 04/08/25 11:51 Pulse Oximetry 18 L 04/08/25 13:22 Oxygen Delivery Method Room Air 04/08/25 11:51 Oxygen Flow Rate 0 04/08/25 11:51 Pain Level 10 04/08/25 13:22 Medical Decision Making Emergent evaluation of chronic pain secondary to metastatic cancer. The patient has recently been evaluated for this and I reviewed his hospitalization summary in addition to recent palliative care notes. At this time the patient took his fentanyl patch off. He has not taken any oral morphine today, and is only taken 3 doses of oral Dilaudid. We have a long discussion regarding realistic goals of care for him and that complete pain relief is unlikely to be achievable. Patient agreed that has 7-8 out of 10 pain level would be tolerable for him. His pain seems to be exacerbated by attempting to lay in bed which she says laying flat makes his pain worse. We discussed other options for him including a new recliner chair that he just purchased. At this time I will not change medication regimen significantly since he has not been compliant with it, but given the patient's level of pain and difficulty controlling his pain, I do feel he might be a good candidate for buprenorphine therapy. I have recommended that he discuss this with palliative care and they can be responsible for managing his transition in therapy for that. This morning he received an IM dose of Dilaudid which significantly improved his pain. Also placed a 50 mcg fentanyl patch. I have written out instructions to take morphine scheduled and Dilaudid for breakthrough pain. Patient seems to have limited understanding of how these medications might work or why he should take them as directed. He will contact palliative care tomorrow regarding further chronic pain needs. Quality:SDOH Health Related Social Needs: Health related social needs housing instability, house d, with risk of homelessness (Z59.811), education (Z55.6) Health related social needs details palliative and car e mgt consult ordered. PFSH All Active Problems (Updated 04/08/25 @ 12:57 by Vale Coleman MD) Anxiety (Chronic) ACP (advance care planning) (Acute) Sleep pattern disturbance (Acute) 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) Constipation (Acute) Chronic pain not due to malignancy (Acute) Long toenail (Acute) Pain in left foot (Acute) Chemotherapy-induced neuropathy (Acute) Pain in right foot (Acute) Hammertoe of right foot (Acute) Malignant neoplasm metastatic to bone (Acute) Essential hypertension (Acute) Coronary arteriosclerosis (Acute) Malignant tumor of prostate (Chronic) Spinal stenosis (Acute) Pressure injury of skin of sacral region (Acute) Severe protein-calorie malnutrition (Acute) Transient cerebral ischemia (Chronic) Spinal stenosis of lumbar region (Acute) Pulmonary hypertension (Acute) Pancytopenia (Acute) Sleep apnea, obstructive (Chronic) Mild cognitive disorder (Acute) Dyspnea on exertion (Acute) Bilateral pleural effusion (Acute) Benign prostatic hyperplasia (Chronic) Angina pectoris (Chronic) Acute and chronic respiratory failure with hypoxia (Acute) High risk medication use (Acute) Cancer related pain (Acute) Lumbar radiculitis (Acute) Medical History 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 Palliative care encounter GERD (gastroesophageal reflux disease) HTN (hypertension) Hyperlipidemia Stable angina Paroxysmal A-fib CAD (coronary artery disease) 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 Elevated alkaline phosphatase level Anemia TIA (transient ischemic attack) Abnormal weight loss Shingles Left sided sciatica Myalgia Memory impairment Fatigue Metastatic malignant neoplasm to prostate Surgical History S/P PTCA (percutaneous transluminal coronary angioplasty) Family History Mother Leukemia Other Adopted Social History Smoking/Tobacco Use Status: Former Tobacco Use Smoking risk assessment performed?: Yes Alcohol Intake: never Drug use: Never Substance use type: does not use Housing: house Number of Children: 2 What type of physical activity do you participate in: swimming and additional Details: Pool therapy Do you feel safe at home: Yes Do you feel safe in your relationship?: Yes Additional Social history: Former tobacco user: Quit 25 yrs ago
== END 2025-04-08 13:23 | disposition home or self-care (01) ==
PROVIDERS: Emergency Provider Emergency Medicine; PCP Internal Medicine
DX: G89.3 Neoplasm related pain (acute) (chronic) (principal); Z59.811 Housing instability, housed, with risk of homelessness; Z55.6 Problems related to health literacy
CPT/HCPCS: 99284 ×2; 96374; J1171